=== PATIENT | male | born 1945 | race Caucasian/White ===

== ENCOUNTER 2020-04-23 15:44 | Outpatient (CLI) | payer MEDICARE, OTHER | END 2020-04-23 23:59 | disposition home or self-care (01) | LOC: RAD 15:44 | PROVIDERS: ATTEND Internal Medicine Gastroenterology | DX: R13.12 Dysphagia, oropharyngeal phase (principal); R47.1 Dysarthria and anarthria; K21.9 Gastro-esophageal reflux disease without esophagitis; Z85.89 Personal history of malignant neoplasm of other organs and systems | CPT/HCPCS: 74230 ==

== ENCOUNTER 2021-04-15 06:23 | Day surgery (SDC) | payer MEDICARE, OTHER ==
[2021-04-13 11:08] LABS: CLARITY,URINE CLEAR (Clear); COLOR,URINE YELLOW (Yellow); GLUCOSE, URINE NEGATIVE (Neg); KETONES,URINE NEGATIVE (Neg); LEUKOCYTE ESTERASE ,URINE NEGATIVE (Neg); NITRITES, URINE NEGATIVE (Neg); OCCULT BLOOD,URINE NEGATIVE (Neg); PH,URINE 6.5 (4.8-8.0); PROTEIN,URINE NEGATIVE (Neg); UROBILINOGEN,URINE 0.2 E.U/dL (0.2-1.0)
[2021-04-13 11:13] LABS: ALBUMIN 3.5 G/DL (3.4-5.0); ALBUMIN/GLOBULIN RATIO 0.8 (1.1-1.5); ALKALINE PHOSPHATASE 107 IU/L (46-116); BLOOD UREA NITROGEN 27 MG/DL (7-18); BUN/CREATININE RATIO 20.6 (5.4-32.0); CALCIUM 9.4 MG/DL (8.5-10.1); CHLORIDE 104 MMOL/L (99-107); CREATININE 1.31 MG/DL (0.60-1.10); PRE OP ALT 25 U/L (30-65); PRE OP ANION GAP 4 (8-16); PRE OP AST 17 U/L (10-37); PRE OP BILIRUB, TOTAL 1.3 MG/DL (0.0-1.0); PRE OP GLUCOSE 114 MG/DL (70-104); PRE OP POTASSIUM 4.2 MMOL/L (3.4-5.1); PRE OP SODIUM 141 MMOL/L (135-145); TOTAL CARBON DIOXIDE 32.6 MMOL/L (24-32); TOTAL PROTEIN 7.7 G/DL (6.4-8.2); eGFR 53 ML/MIN
[2021-04-13 11:23] LABS: UA COLLECTION TYPE CLN CATCH MIDSTREAM
[2021-04-13 11:49] LABS: BASOPHILS # (AUTO) 0.1 X10'3 (0-0.2); BASOPHILS % (AUTO) 1.2 % (0-1); EOSINOPHILS # (AUTO) 0.2 X10'3 (0-0.9); EOSINOPHILS % (AUTO) 2.8 % (0-6); LYMPHOCYTES # (AUTO) 0.9 X10'3 (1.1-4.8); LYMPHOCYTES % (AUTO) 14.6 % (21-51); MEAN CORPUSCULAR HEMOGLOBIN 28.9 PG (27.0-31.0); MEAN CORPUSCULAR HGB CONC 33.6 g/dL (33.0-36.5); MEAN CORPUSCULAR VOLUME 86.2 FL (78-98); MEAN PLATELET VOLUME 8.8 FL (7.4-10.4); MONOCYTES # (AUTO) 0.8 X10'3 (0-0.9); MONOCYTES % (AUTO) 13.6 % (2-12); NEUTROPHILS # (AUTO) 4.1 X10'3 (1.8-7.7); NEUTROPHILS % (AUTO) 67.8 % (42-75); PRE OP HEMATOCRIT 48.7 % (42.0-52.0); PRE OP HEMOGLOBIN 16.3 g/dL (14.0-17.9); PRE OP PLATELET COUNT 207 X10'3 (140-440); RED BLOOD COUNT 5.65 X10'6 (4.70-6.10); RED CELL DISTRIBUTION WIDTH 16.2 % (11.5-14.5)
[2021-04-15] VITALS (20 sets, daily range): BP systolic 118–159; BP diastolic 73–108
[~2021-04-15] VITALS: Ht 185.4 cm; Wt 72.6 kg
[~2021-04-15 06:23] MED LIST: DOCUMENT DATE & TIME OF BETA-BLOCKER PO ONE; METO-395 PO; clindamycin-Cleocin 900mg/D5W 50 ML IV ONE; famotidine 20mg tablet PO ONE; ringers solution, lacted 1,000 ML IV SCH
[2021-04-15] MEDS ORDERED: BUPIVAcaine/PF 2.5 mg/ml (0.25%) 30ml vial ONE (06:52)
[2021-04-15] MEDS ORDERED: glycopyrrolate 0.2mg/ml inj ONE (08:51)
[2021-04-15] MEDS ORDERED: sevoflurane 250ml liquid IH ONE (08:51)
[2021-04-15] MEDS ORDERED: fentaNYL/PF 50MCG/1 ML 2ML syringe ONE (08:52)
[2021-04-15] MEDS ORDERED: midazolam 1 mg/ML 2ml injection ONE (08:52)
[2021-04-15] MEDS ORDERED: labetalol 20mg/4ml (5mg/ml) syringe IV PRN (09:00)
[2021-04-15] MEDS ORDERED: morphine 2 MG/ML inj. syringe IV PRN (09:00)
[2021-04-15] MEDS ORDERED: proCHLORperazine 10 MG/2 ml inj IV PRN (09:00)
[2021-04-15] MEDS ORDERED: morphine 4 MG/ML inj SYRINge IV PRN (09:00)
[2021-04-15] MEDS ORDERED: ringers solution, lacted 1,000 ML IV SCH (09:00)
[2021-04-15] MEDS ORDERED: meperidine/PF 25mg/ml syringe IV PRN ×3 (09:00)
[2021-04-15] MEDS ORDERED: ondansetron/PF 4mg/2ml inj IV PRN (09:00)
[2021-04-15] MEDS ORDERED: acetaminophen 1,000mg/100ml IV 100 ML IV PRN (09:00)
[2021-04-15] MEDS ORDERED: hydrALAZINE 20mg/ml inj. IV PRN (09:00)
[2021-04-15] MEDS ORDERED: ePHEDrine 50MG/ML INJ. ONE (09:23)
[2021-04-15] MEDS ORDERED: propofol inj 20 ML IV ONE (09:23)
[2021-04-15] MEDS ORDERED: dexamethasone sod phosphate 4mg/ml inj. ONE (09:23)
[2021-04-15] MEDS ORDERED: 0.9 % SODIUM CHLORIDE 10 ML VIAL ONE (09:23)
[2021-04-15] MEDS ORDERED: ondansetron/PF 4mg/2ml inj ONE (09:23)
[2021-04-15] MEDS ORDERED: LIDOcaine 2% (20mg/ml) 5ml vial ONE (09:23)
[2021-04-15] MEDS ORDERED: rocuronium 10mg/ml inj IV ONE (09:23)
[2021-04-15] MEDS ORDERED: metoprolol tartrate 1mg/ml inj IV ONE (10:40)
[2021-04-15] MEDS ORDERED: neostigmine methylsulfate 1 MG/ML 10ml vial ONE (10:40)
--- NOTE | 2021-04-15 10:52 | NUR ---
Received from OR via , accompanied by Anesthesiologist DR BISHOP and report given by Anesthesiolgist. PT PRESENTS WITH 20G RIGHT HAND, ABD DRESSING AMISH FAUSTINS. Addendum: 04/15/21 at 1056 by Nehal Epperson RN, RN Amended: Links added.
--- NOTE | 2021-04-15 13:30 | NUR ---
PT BLADDER SCAN SHOWS 52MLS IN BLADDER. Addendum: 04/15/21 at 1444 by Nehal Epperson RN RN Amended: Links added.
--- NOTE | 2021-04-15 14:44 | NUR ---
PT URINATED 200 MLS IN URINAL. PT BLADDER SCANNED WITH 139 MLS IN BLADDER. Addendum: 04/15/21 at 1445 by Nehal Epperson RN, RN Amended: Links added.
--- NOTE | 2021-04-15 14:53 | NUR ---
PT URINATED 200 MLS INTO URINAL. Addendum: 04/15/21 at 1453 by Nehal Epperson RN RN Amended: Links added.
--- NOTE | 2021-04-15 15:02 | NUR ---
PT BLADDER SCANNED WITH 21 MLS IN BLADDER. Addendum: 04/15/21 at 1504 by Nehal Epperson RN RN Amended: Links added.
--- NOTE | 2021-04-15 15:12 | NUR ---
ALL DISCHARGE CRITERIA HAS BEEN MET. VSS, PAIN AT A TOLERABLE LEVEL, VOIDING AND ABLE TO SAFELY AMBULATE AND TRANSFER SELF. IV TAKEN OUT WITHOUT ANY COMPLICATIONS. ALL DISCHARGE INSTRUCTIONS COVERED WITH PATIENT AND ALL QUESTIONS ANSWERED. PATIENT TAKEN OUT VIA WHEELCHAIR TO PERSONAL VEHICLE WHERE FAMILY/FRIEND DROVE PATIENT HOME. Addendum: 04/15/21 at 1611 by Nehal Epperson RN, RN Amended: Links added.
== END 2021-04-15 15:12 | disposition home or self-care (01) ==
LOC: PAS 06:23
PROVIDERS: ATTEND Surgery
DX: K40.90 Unilateral inguinal hernia, without obstruction or gangrene, not specified as recurrent (principal); I48.91 Unspecified atrial fibrillation; Z20.822 Contact with and (suspected) exposure to COVID-19; Z88.0 Allergy status to penicillin; F17.290 Nicotine dependence, other tobacco product, uncomplicated; Z72.89 Other problems related to lifestyle; Z98.890 Other specified postprocedural states; Z85.89 Personal history of malignant neoplasm of other organs and systems; Z79.899 Other long term (current) drug therapy; Z83.3 Family history of diabetes mellitus
CPT/HCPCS: 36415; 49650; 80053; 81003; 82948; 85025; 87635; C1781; C9803; J1100; J2250; J2405; J2704; J2710; J3010; J3490; J7030; J7120; Z7506; Z7508; Z7512; A4215; A4618

== ENCOUNTER 2023-07-29 14:46 | Outpatient (CLI) | payer MEDICARE, OTHER ==
[~2023-07-29 14:46] MED LIST changes: -DOCUMENT DATE & TIME OF BETA-BLOCKER PO ONE; -clindamycin-Cleocin 900mg/D5W 50 ML IV ONE; -famotidine 20mg tablet PO ONE; -ringers solution, lacted 1,000 ML IV SCH
== END 2023-07-29 23:59 | disposition home or self-care (01) ==
LOC: RAD 14:46
PROVIDERS: ATTEND Otolaryngology
DX: R13.14 Dysphagia, pharyngoesophageal phase (principal); Z85.89 Personal history of malignant neoplasm of other organs and systems
CPT/HCPCS: 74230

== ENCOUNTER 2024-08-13 15:32 | Inpatient (IN) | payer MEDICARE, OTHER ==
[~2024-08-13] VITALS: Ht 182.9 cm; Wt 72.9 kg
--- NOTE | 2024-08-13 15:42 | Physician Documentation ---
History of Present Illness Stated Complaint: SIDE PAIN HPI Presents to the ED with a complaint of right-sided flank pain for three days. States he also had a fever recently. States he also has a history of throat cancer. Denies any urinary difficulty but does report that it is difficulty to get a good position that isnt painful. Denies any history of kidney stones. Patient also denies any chest pain shortness of breath nausea vomiting Day of Onset: August 13, 2024 Medication Reconciliation Allergies: Coded Allergies: Penicillins (Verified Adverse Reaction, Unknown, RASH, 08/13/24) Scheduled Metoprolol Tartrate (Metoprolol Tartrate), 1 TAB PO BID, (Reported) Tamsulosin Hcl* (Flomax*), 0.4 MG PO DAILY, (Reported) Discontinued Medications Metoprolol Succinate (Metoprolol Succinate), 1 TAB PO AM, (Reported) Discontinued Reason: patient no longer taking Metoprolol Succinate (Metoprolol Succinate), 2 TAB PO HS, (Reported) Discontinued Reason: patient no longer taking Review of Systems All Other Systems at this time: Reviewed and Negative ROS As stated above in the HPI, otherwise all systems are reviewed and negative. Physical Exam Physical Exam General: Alert, no apparent distress. Cardiovascular: Regular rate and rhythm, no murmurs. Gastrointestinal: Soft, nontender, positive CVA tenderness on the right side Neurologic: Oriented x4. Psychiatric: Normal mood and affect. Skin: Normal color, warm and dry. No edema, no ecchymosis. Medical Decision Making Findings Interestingly, I was initially suspicious suspicious for a right-sided kidney stone that may or may not have been obstructive. Patient's urinalysis also indicated this via red blood cells evident in his urine. Ordered the CT abdomen and pelvis however there was no evidence of the kidney stone in his imaging. However his laboratory values and indicated he has elevated pro BNP elevated troponin indicating that this is likely demand ischemia. Started him on heparin and gave hydralazine and requested admission to the hospital Differential Dx:Considerations: Include: AAA, Angina/IL, Aortic dissection, Appendicitis, Bowel obstruction, Cholangitis, Cholelithasis, Constipation, Diverticular disease, Esophageal rupture, Esophagitis, Gastritis/PUD, Gastroenteritis, GI hemorrhage, Hernia, Hepatitis, Inflammatory BD, Ischemic bowel, Pancreatitis, Porphyria, Testicular torsion, Trauma, intraabdominal, Urinary obstruction, Urinary tract infection, Urolithiasis, Other Departure Disposition: ADMITTED INPATIENT Impression: Primary Impression: Non-ST elevation (NSTEMI) myocardial infarction Additional Impression: CHF (congestive heart failure) Condition: Critical Referrals: NO PRIMARY CARE PROVIDER (PCP) Signature Scribe Signature: b Attestation: The note accurately reflects work and decisions made by me.Rivera Epperson NP 08/13/24 22:55 RIVERA ESTRADA NP August 13, 2024 15:42
[2024-08-13 16:02] LABS: BILIRUBIN,URINE NEGATIVE (Neg); CLARITY,URINE CLEAR (Clear); COLOR,URINE YELLOW (Yellow); GLUCOSE, URINE NEGATIVE (Neg); KETONES,URINE NEGATIVE (Neg); LEUKOCYTE ESTERASE ,URINE NEGATIVE (Neg); NITRITES, URINE NEGATIVE (Neg); OCCULT BLOOD,URINE MODERATE (Neg); PROTEIN,URINE >=300 mg/dl (Neg)
[2024-08-13 16:13] LABS: UA COLLECTION TYPE VOIDED
[2024-08-13 16:15] LABS: BACTERIA,URINE FEW /HPF (Neg); SQUAMOUS EPITHELIAL CELL,UR FEW /LPF (FEW)
[2024-08-13 16:16] LABS: FINE GRANULAR CAST 0-3 /LPF (NEGATIVE); URIC ACID CRYSTALS FEW /HPF (NEGATIVE)
[2024-08-13 16:27] LABS: BASOPHILS # (AUTO) 0.1 X10'3 (0-0.2); BASOPHILS % (AUTO) 0.6 % (0-1); EOSINOPHILS % (AUTO) 0.2 % (0-6); HEMATOCRIT 49.2 % (42.0-52.0); HEMOGLOBIN 16.3 g/dl (14.0-17.9); LYMPHOCYTES # (AUTO) 0.8 X10'3 (1.1-4.8); LYMPHOCYTES % (AUTO) 7.7 % (21-51); MEAN CORPUSCULAR HEMOGLOBIN 27.8 PG (27.0-31.0); MEAN CORPUSCULAR HGB CONC 33.1 g/dL (33.0-36.5); MEAN CORPUSCULAR VOLUME 84.1 FL (78-98); MEAN PLATELET VOLUME 9.3 FL (7.4-10.4); MONOCYTES # (AUTO) 1.2 X10'3 (0-0.9); MONOCYTES % (AUTO) 12.3 % (2-12); NEUTROPHILS # (AUTO) 7.8 X10'3 (1.8-7.7); NEUTROPHILS % (AUTO) 79.2 % (42-75); PLATELET COUNT 193 X10'3 (140-440); RED BLOOD COUNT 5.85 X10'6 (4.70-6.10); RED CELL DISTRIBUTION WIDTH 15.8 % (11.5-14.5); WHITE BLOOD COUNT 9.8 X10'3 (4.5-11.0)
--- NOTE | 2024-08-13 16:29 | RADIOLOGY REPORT ---
CHEST RADIOGRAPH Indication: CP Technique: Single frontal view of the chest was obtained COMPARISON: None FINDINGS: Lines and Tubes: None Lungs: Clear Pleura: No effusion. No pneumothorax. Cardiomediastinal contours: Mild cardiomegaly Bones: Unremarkable IMPRESSION: 1. No infiltrates. Mild bilateral apical pleural thickening
[2024-08-13 16:44] LABS: ALANINE AMINOTRANSFERASE 24 U/L (12-78); ALBUMIN 3.5 G/DL (3.4-5.0); ALBUMIN/GLOBULIN RATIO 0.7 (1.1-1.5); ALKALINE PHOSPHATASE 205 IU/L (46-116); ANION GAP 9 (8-16); ASPARTATE AMINO TRANSFERASE 38 U/L (10-37); BILIRUBIN,TOTAL 2.4 MG/DL (0.1-1.0); BLOOD UREA NITROGEN 29 MG/DL (7-18); BUN/CREATININE RATIO 11.7 (10.0-20.0); CALCIUM 9.6 MG/DL (8.5-10.1); CHLORIDE 102 MMOL/L (99-107); CREATININE 2.48 MG/DL (0.60-1.10); GLUCOSE 125 MG/DL (70-104); SODIUM 141 MMOL/L (135-145); TOTAL CARBON DIOXIDE 30.4 MMOL/L (24-32); TOTAL PROTEIN 8.5 G/DL (6.4-8.2); eCRCL 24 ML/MIN; eGFR 25 ML/MIN
[2024-08-13 16:50] LABS: LIPASE 50 U/L (16-77); PRO BRAIN NATRIURETIC PEPTIDE 9888 PG/ML (0-450)
[2024-08-13] MEDS ORDERED: heparin 10,000 units/1 ML INJ IV ONE (17:00)
--- NOTE | 2024-08-13 17:10 | ELECTROCARDIOGRAPH REPORT ---
[facility] Test Date: 2024-08-13 Test Time: 16:09:28 Pat Name: BRANDON PEREZ Department: EMERGENCY ROOM Room: [place] [address] Gender: M Technical Assistant: ANA : 1945 Requested By: MARY ANDERSEN Order Number: [id number] Reading MD: Dr. Blas Ponce Measurements Intervals [place] Rate: 128 P: 0 IN: 0 QRS: 97 QRSD: 131 T: -49 QT: 325 QTc: 475 Interpretive Statements Atrial fibrillation Ventricular premature complex RBBB and LPFB ST depression, consider ischemia, diffuse lds Electronically Signed On 08-18-2024 13:44:[address] Blas Ponce Please click the below link to view image of tracing.
[2024-08-13 17:22] LABS: APTT 28 SECONDS (22-32); INR 1.1 INR
[2024-08-13] MEDS ORDERED: magnesium hydroxide 30ml (MOM) UD suspension PO PRN (17:25)
[2024-08-13] MEDS ORDERED: acetaminophen 325mg tablet PO PRN (17:25)
[2024-08-13] MEDS ORDERED: magnesium sulf-water 2g/50mL 50 ML IV PRN (17:25)
[2024-08-13] MEDS ORDERED: mag hydrox/Alum hydrox/simeth 30ml oral suspension PO PRN (17:25)
[2024-08-13] MEDS ORDERED: magnesium sulf-water 4G/100mL 100 ML IV PRN (17:25)
[2024-08-13] MEDS ORDERED: potassium Cl 20 mEq SR tablet PO PRN ×2 (17:25)
[2024-08-13] MEDS ORDERED: magnesium Cl slow-release 64mg tablet PO PRN (17:25)
[2024-08-13] MEDS ORDERED: HYDROcodone/acetaminophen 5mg/325mg tablet PO PRN (17:25)
[2024-08-13] MEDS: potassium Cl 20mEq in NS 1,000 ML IV SCH (17:25)
[2024-08-13] MEDS ORDERED: potassium Cl 40MEQ/1/2NS 520ml 520 ML IV PRN (17:25)
[2024-08-13] MEDS: heparin 10,000 units/1 ML INJ IV ONE (17:27)
[2024-08-13] MEDS: heparin 25,000 UNIT/250ml bag 250 ML IV PRN (17:33)
[2024-08-13] MEDS: MESSAGE TO NURSING IV ONE (17:38)
[2024-08-13] MEDS: atorvastatin 20mg tablet PO SCH (17:40)
[2024-08-13] MEDS: aspirin 325mg tablet PO ONE (17:40)
--- NOTE | 2024-08-13 17:42 | RADIOLOGY REPORT ---
EXAM: CT Abdomen and Pelvis Without Intravenous Contrast CLINICAL INDICATION: kidney stone TECHNIQUE: Axial computed tomography images of the abdomen and pelvis without intravenous contrast. This CT exam was performed using one or more of the following dose reduction techniques: automated exposure control, adjustment of the mA and/or kV according to patient size, and/or use of iterative r econstruction technique. CONTRAST: COMPARISON: None FINDINGS: LUNG BASES: Unremarkable. No mass. No consolidation. ABDOMEN: LIVER: Fatty infiltration of the liver. GALLBLADDER AND BILE DUCTS: Unremarkable. No calcified stones. No ductal dilation. PANCREAS: Unremarkable. No ductal dilation. SPLEEN: Unremarkable. No splenomegaly. ADRENALS: Unremarkable. No mass. KIDNEYS AND URETERS: Unremarkable. No obstructing stones. No hydronephrosis. STOMACH AND BOWEL: Fecal retention in the colon consistent with constipation. Colonic diverticulos is without acute diverticulitis. No obstruction. PELVIS: APPENDIX: No findings to suggest acute appendicitis. BLADDER: Portable right posterior urinary bladder diverticulum measuring up to 2.1 cm. No stones. REPRODUCTIVE: The prostate gland measures 4.3 cm in maximum dimension. ABDOMEN and PELVIS: INTRAPERITONEAL SPACE: Unremarkable. No free air. No significant fluid collection. BONES/JOINTS: No acute fracture. No dislocation. SOFT TISSUES: Umbilical hernia containing fat. Left inguinal hernia. VASCULATURE: Scattered calcified atherosclerotic disease of aorta. No abdominal aortic aneurysm. LYMPH NODES: Unremarkable. No enlarged lymph nodes. OTHER FINDINGS: . Normal-appearing. . . IMPRESSION: 1. Umbilical hernia containing fat. 2. Fecal retention in the colon consistent with constipation. 3. Left inguinal hernia. 4. Colonic diverticulosis without acute diverticulitis.
[2024-08-13] MEDS: hydrALAZINE 20mg/ml inj. IV ONE (17:44)
[2024-08-13] MEDS ORDERED: TAMS-55 PO (17:48)
[2024-08-13] MEDS ORDERED: METO50TA16 PO (17:48)
--- NOTE | 2024-08-13 18:18 | HISTORY AND PHYSICAL ---
History & Physical Providers to ~ History of Present Illness Reason for Admit\Complaint: Left flank pain History of Present Illness History of present illness patient is a pleasant 78-year-old gentleman with a longstanding history of AFib. He started developing right flank pain that began around Tuesday around 2:00 p.m. it is radiating to his right mid abdomen towards his penis. He denies any chest pain shortness of breath PND orthopnea syncope or near-syncope. He says he has a longstanding history of AFib but it is normally controlled with the medications he is on. He denies any other associated symptoms. Allergies: Coded Allergies: Penicillins (Verified Adverse Reaction, Unknown, RASH, 08/13/24) Home Medications Home Medications Active Reported Flomax* (Tamsulosin HCl) 0.4 Mg Cap.sr.24h 0.4 Mg PO DAILY Metoprolol Tartrate 50 Mg Tablet 1 Tab PO BID Past Medical History Past Medical History Past medical history significant for throat cancer that was diagnosed 25 years ago status post surgery and radiation. AFib. Past surgical history has a remote tonsillectomy or hernia repair throat surgery Allergies are to penicillins Social history used to be a smoker but quit 25 years ago when he was diagnosed with throat cancer he also quit drinking many years ago is lives alone Family history his both siblings have been diseased secondary to cancer brother had prostate and lung cancer and sister had thyroid and stomach cancer but prior to that nobody in the family had any cancers Review of systems is negative for all 10 systems reviewed except for history of present illness Exam Vitals: Vital Signs Date Time Temp Pulse Resp B/P (MAP) Pulse Ox O2 Delivery O2 Flow Rate FiO2 08/13/24 18:06 98.0 145 19 163/93 (116) 99 0 General: Patient is alert and oriented x3 no acute distress lying down comfortably speaking in full sentences vital signs show an elevated heart rate of 160s and blood pressures of systolics of initially 200s him now come down to 165 HEENT normocephalic nontraumatic head PERRLA. EOMI. Thin cachectic gentleman in no acute distress CVS first and second heart sounds are irregularly irregular Respiratory system is clear to auscultate bilaterally no rales rhonchi crackles or wheezing Abdomen is soft bowel sounds are positive there is plus two tenderness in left flank and left mid quadrant no rebound no rigidity no voluntary guarding no masses appreciated no fluid thrill it is scaphoid Extremities no clubbing cyanosis or edema Neurological exam no focal deficits Rectal deferred Skin is intact and warm Diagnostic Data Last Recorded Lab Results: 08/13/24 1600 08/13/24 1600 Diagnostic Data: Laboratory Tests Test 08/13/24 16:27 Prothrombin Time 11.0 SECONDS (9.0-12.0) INR International Normalized Ratio 1.1 INR Activated Partial Thromboplast Time 28 SECONDS (22-32) Coagulation Comments Additional Plan Assessment and plan -OR type 2 secondary to increased demand Patient is started on IV heparin I spoke to college associate who agrees to see the patient in a.m. Dr. MANN Patient also started on aspirin Lipitor morphine metoprolol and oxygen -left-sided nephrolithiasis we will get a consult with Dr. Sullivan Start the patient on Flomax IV fluids Empirically on IV Cipro -history of throat cancer Status post surgery and radiation -acute renal failure monitor BUN and creatinine IV hydration started -DVT prophylaxis with the IV heparin Date of Service: August 13, 2024 Billing Provider: KYLAH KIM MD Common Visit Codes: 03665-[id number] INP/OBS CARE (HIGH) KYLAH KIM MD August 13, 2024 18:18
[2024-08-13] MEDS ORDERED: mineral oil 133ml enema RC PRN (18:25)
[2024-08-13] MEDS: lactulose 20gm/30ml cup PO ONE (18:25)
[2024-08-13] MEDS: metoprolol tartrate 1mg/ml inj IV ONE (18:34)
[2024-08-13 18:37] LABS: HEMOGLOBIN A1C 5.6 % (4.5-6.2)
[2024-08-13] MEDS: morphine 2 MG/ML inj. syringe IV PRN (18:52)
[2024-08-13] MEDS: docusate sod 100mg capsule PO SCH (20:00)
[2024-08-13] MEDS: metoprolol tartrate 50mg tablet PO SCH (20:00)
[2024-08-13] MEDS: K and/or MAG REPLACEMENT MC SCH (20:00)
[2024-08-13] MEDS ORDERED: docusate sod 100mg capsule PO SCH (20:00)
[2024-08-13] MEDS: tamsulosin 0.4mg capsule PO SCH (21:00)
[2024-08-13] MEDS: diltiazem 5mg/ml 5ml inj. IV ONE (21:06)
[2024-08-13] MEDS: diltiazem-NS 100mg/100ml 100 ML IV SCH (21:07)
[2024-08-13] MEDS: ciprofloxacin/D5W 200mg/100mL 100 ML IV SCH (22:03)
[2024-08-13 22:23] VITALS: BP 154/90; PULSE 112; RESP 18; O2SAT 95
[2024-08-13 22:45] VITALS: BP 139/90; PULSE 126; RESP 21
[2024-08-13 23:00] VITALS: BP 140/99; PULSE 113; RESP 19
[2024-08-13 23:15] VITALS: BP 148/89; PULSE 112; RESP 15
[2024-08-13 23:30] VITALS: BP 153/82; PULSE 109; RESP 18
[2024-08-14] VITALS (22 sets, daily range): BP systolic 108–160; BP diastolic 63–104; PULSE 84–167; RESP 15–29; TEMP 97.3–98.9; O2SAT 90–97
[2024-08-14] MEDS: MESSAGE TO NURSING IV ONE ×4 (00:54→22:45)
[2024-08-14] MEDS: hydrALAZINE 20mg/ml inj. IV PRN (02:40)
[2024-08-14] MEDS: ondansetron/PF 4mg/2ml inj IV PRN (04:46)
[2024-08-14] MEDS: cloNIDine 0.1 mg tablet PO PRN (05:08)
[2024-08-14 07:05] LABS: BASOPHILS % (AUTO) 0.2 % (0-1); EOSINOPHILS % (AUTO) 0 % (0-6); HEMATOCRIT 44.9 % (42.0-52.0); HEMOGLOBIN 15.1 g/dl (14.0-17.9); LYMPHOCYTES # (AUTO) 0.4 X10'3 (1.1-4.8); MEAN CORPUSCULAR HEMOGLOBIN 28.1 PG (27.0-31.0); MEAN CORPUSCULAR HGB CONC 33.7 g/dL (33.0-36.5); MEAN CORPUSCULAR VOLUME 83.4 FL (78-98); MEAN PLATELET VOLUME 8.9 FL (7.4-10.4); MONOCYTES # (AUTO) 1.4 X10'3 (0-0.9); MONOCYTES % (AUTO) 11.5 % (2-12); NEUTROPHILS # (AUTO) 10.5 X10'3 (1.8-7.7); NEUTROPHILS % (AUTO) 85.3 % (42-75); PLATELET COUNT 170 X10'3 (140-440); RED BLOOD COUNT 5.39 X10'6 (4.70-6.10); RED CELL DISTRIBUTION WIDTH 15.8 % (11.5-14.5); WHITE BLOOD COUNT 12.3 X10'3 (4.5-11.0)
[2024-08-14 07:28] LABS: ALANINE AMINOTRANSFERASE 18 U/L (12-78); ALBUMIN 2.9 G/DL (3.4-5.0); ALBUMIN/GLOBULIN RATIO 0.7 (1.1-1.5); ALKALINE PHOSPHATASE 166 IU/L (46-116); ANION GAP 11 (8-16); ASPARTATE AMINO TRANSFERASE 27 U/L (10-37); BILIRUBIN,TOTAL 2.2 MG/DL (0.1-1.0); BLOOD UREA NITROGEN 28 MG/DL (7-18); BUN/CREATININE RATIO 12.4 (10.0-20.0); CALCIUM 9.2 MG/DL (8.5-10.1); CHLORIDE 104 MMOL/L (99-107); CHOL/HDL RATIO 2.5 (0.00-4.99); CHOLESTEROL 151 MG/DL (0-200); CREATININE 2.26 MG/DL (0.60-1.10); GLUCOSE 141 MG/DL (70-104); HDL CHOLESTEROL 60 MG/DL (35-60); LDL CHOLESTEROL 85 MG/DL (50-100); MAGNESIUM 2.2 MG/DL (1.5-2.4); POTASSIUM 4.2 MMOL/L (3.5-5.1); SODIUM 140 MMOL/L (135-145); TOTAL CARBON DIOXIDE 25.1 MMOL/L (24-32); TOTAL PROTEIN 7.3 G/DL (6.4-8.2); TRIGLYCERIDES 57 MG/DL (20-135); eCRCL 27 ML/MIN; eGFR 28 ML/MIN
[2024-08-14] MEDS ORDERED: tamsulosin 0.4mg capsule PO SCH (08:00)
--- NOTE | 2024-08-14 10:37 | CONSULTATION REPORT ---
History of Present Illness Providers to CC ~ Reason for Admit\Admit Dx: Left flank pain Refering MD: [facility] History of Present Illness This is a 78-year-old male with past medical history significant for throat cancer status post resection and radiation as well as atrial fibrillation not on oral anticoagulation. Presented secondary to left-sided lengthening radiating to the groin. He was diagnosed with a kidney stone. Troponins were drawn for some reason and they were found to be elevated and therefore cardiology consultation was requested with the on-call drill press hand, Dr. Yoo. On presentation patient was in AFib with rapid ventricular response and significantly hypertensive. He was started on a diltiazem drip. Heart rate is now controlled. Chest pain or pressure. Has intermittent dyspnea on exertion that has been going on for some time. No exacerbation in symptoms. No dizziness, lightheadedness or syncope. Allergies: Coded Allergies: Penicillins (Verified Adverse Reaction, Unknown, RASH, 08/13/24) Home Medications Home Medications Active Reported Flomax* (Tamsulosin HCl) 0.4 Mg Cap.sr.24h 0.4 Mg PO DAILY Metoprolol Tartrate 50 Mg Tablet 1 Tab PO BID Past Medical History Medical History Comment AFib Throat cancer Past Surgical History Surgical History Comment Surgical resection of throat cancer Past Social History Social History Comment Patient has a history of smoking but quit many years ago. Denies alcohol. No recreational drugs. Physical Exam Last Vital Signs Recorded: RN Vital Signs have been reviewed: Yes, Temperature: 97.3, Source: Oral, Heart Rate: 99, Respiratory Rate: 21, BP: 116/63, Pulse Oximetry: 93, Weight: 72.900 Physical Exam General: Awake, alert, oriented. No apparent distress Neck: Supple. Normal range of motion. No JVD Respiratory: Lungs are clear to auscultation bilaterally. No respiratory distress. Chest: Normal shape and size. No accessory muscle use. Cardiovascular: Irregularly irregular. Variable S1-S2. No murmur, gallop, rub. Gastrointestinal: Abdomen is soft. Nontender to palpation. Bowel sounds present. Extremities: No lower extremity edema, cyanosis or clubbing. Neurologic: Alert and oriented x4. Nonfocal Psychiatric: Normal mood and affect. Skin: Normal color. Warm and dry. Review of Systems All Other Systems at this time: Reviewed and Negative ROS Patient complains of flank pain as noted in HPI. Minimal dyspnea on exertion with NYHA class two symptoms intermittently. Otherwise, review of systems negative except specifically documented in HPI. Results EKG EKG Atrial fibrillation with rapid ventricular response. Right bundle branch block and left anterior fascicular block. PVCs noted. Diagram Lab Result Diagram: 08/14/2462808/14/24628 Assessment/Plan Additional Plan This is an 78-year-old male who presented secondary to flank pain. The following is his problem list: NSTEMI Likely [place] type 2 secondary to AFib with RVR and hypertension No current chest pain or pressure --recommend echocardiogram --continue heparin drip for now. --Unable to tolerate anticoagulation secondary to his history of throat cancer. He will continue aspirin 81 mg daily. --Continue home metoprolol 50 mg b.i.d. --lipids were checked. LDL 85. Recommend high-intensity statin. Atrial fibrillation with rapid ventricular response Heart rate now controlled Wean off diltiazem drip. Up titrate metoprolol as needed for rate control Hypertension Not on antihypertensives as an outpatient. --hypertension management per hospitalist Nephrolithiasis --Management per hospitalist. --if surgical intervention is needed we will be moderate cardiovascular risk for surgery. Acute kidney injury --Receiving IV hydration per hospitalist Supervising MD Supervising Physician: STACY Willson NP August 14, 2024 10:37
--- NOTE | 2024-08-14 14:27 | PROGRESS NOTE- Residence ---
Progress Note - Resident Providers to CC Resident Creating Document: SHAQUILLE MARTINEZ RES ~ Antibiotic Timeout Antibiotic Ordered?: Yes Subjective Patient said that he is still having the right flank pain, denies any chest pain pressure discomfort and no EKG changes. Patient is currently on IV heparin, cardiology was consulted yesterday. Patient did not have any bowel movement yet. Objective Vital Signs Date Time Temp Pulse Resp B/P (MAP) Pulse Ox O2 Delivery O2 Flow Rate FiO2 08/14/24 11:38 19 08/14/24 11:37 92 123/79 08/14/24 11:00 98.9 90 Room Air 08/13/24 18:06 0 Result Diagram: 08/14/2462808/14/24628 Vitals were stable at the moment with temp 98.9 F HI 91/minute, RR 21/minute, BP 110/71, pulse oximetry 90% on room air. On exam, General: Well alert, well oriented, not confused, not agitated, not in acute distress, well cooperated during the physical. HEENT: Conjunctive are pink, sclerae clear, no icterus, pupil is equal in both sides, reactive to light, no ear discharge, no pharyngeal erythema or an edema, mouth and lips are moist. Neck: Supple, no JVD, no lymphadenopathy and thyromegaly. Lungs:Equal air entry on both lungs, no additional sounds Heart: S1-S2 regular sinus rhythm and, regular rate, no gallops, no rubs, no murmurs Abdomen: No visible peristalsis, Bowel sounds present on auscultation, soft, slight tenderness at the right flank, and left sided, no guarding, no rigidity, ESTRADA was deferred Extremities: No obvious deformities, no pitting edema bilaterally, capillary refill intact, able to wiggle toes both sides, peripheral pulsations are intact on both sides EXPERIMENTAL PSYCHOLOGIST: No focal neurological deficits, no motor and sensory weakness in all 4 extremities, could move all 4 extremities Musculoskeletal: No joint swelling, deformities, inflammations, and no scoliosis and back tenderness Skin: No active skin lesions and rashes Coagulation Studies Laboratory Tests Test 08/13/24 16:27 08/14/24 13:14 Prothrombin Time 11.0 SECONDS (9.0-12.0) INR International Normalized Ratio 1.1 INR Activated Partial Thromboplast Time 28 SECONDS (22-32) APTT (Heparin Protocol) 62 SECONDS (45-60) H Coagulation Comments Assessment Assessment An 78 years old male with chronic AFib with RVR on non anticoagulation, throat cancer s/p radical surgery and XRT. s/p tonsillectomy or hernia repair surgery, and FHx of cancer in brother with prostate and lung cancer, sister had thyroid and stomach cancer presented with the acute right flank pain radiated downward to his groin and genital area. Plan Plan # T2MI -patient is currently on IV heparin and continue it -possibly secondary from AFib with RVR and a uncontrolled hypertension. -consulted with Dr Yoo cardiology and appreciate it, who recommended for continuing home metoprolol 50 mg b.i.d., continue atorvastatin 40 mg daily with goal of LDL <55, anticoagulation was limited for his throat cancer history. # Constipation -mineral oil prn -continue p.o. lactulose 30 mL b.i.d., p.o. MiraLax 17 g every HS, docusate 100 mg b.i.d. -we will consider soap enema if he wound have any bowel movement after those measures -control the pain with acetaminophen as much as possible to avoid unnecessary constipation from opiates -continue IV ciprofloxacin Day 2 # A fib w/ RVR on no anticoagulation -was given IV diltiazem drip, cardiology recommended for titrating up current metoprolol as needed for rate control -currently maintaining heart rate around 90s # hypertension -blood pressure is currently controlled, around 110/70 -continue IV hydralazine 10 mg PRN -patient is currently on the tamsulosin for his possible diagnosis of kidney stone/BPH # history of throat cancer -s/p radical resection surgery and XRT 25 years ago -currently on liquid diet only for two years now. -started and continue liquid centrum with multivitamins. CODE STATUS: Full code DVT prophylaxis: IV heparin Analgesia/sedation: Acetaminophen, IV morphine as needed Lines/tubes: Peripheral IV GI prophylaxis: None Nutrition: Liquid diet Prognosis: Guarded Disposition: Continue medical management, continue IV heparin as per Cardiology recommendation, GDMT, heart rate control, PT eval and DC plan. Resident attestation: Patient was seen, examined and discussed with attending MD, Dr. Angi MARTINEZ MD Internal Medicine Resident, PGY2 [facility] Date of Service: August 14, 2024 Billing Provider: KYLAH KIM MD, TIN, RES August 14, 2024 14:27
[2024-08-14] MEDS: lactulose 20gm/30ml cup PO SCH (15:51)
[2024-08-14] MEDS: MULTIVIT-MIN/FERROUS GLUCONATE 9 MG/15 ML LIQUID PO SCH (16:10)
--- NOTE | 2024-08-14 18:08 | CARDIOLOGY REPORT ---
APPROVED REPORT EXAM: Comprehensive 2D, Doppler, and color-flow Echocardiogram. Patient Location: [facility] Heart Rate: 101 bpm Rhythm: Atrial Fibrillation Indications CHEST PAIN ELEVATED PRO BNP [id number] ATRIAL FIBRILLATION HS TROPONIN [id number] TRANSPORTATION AID: NONE. PRIOR ECHOCARDIOGRAM: NONE. 2D Dimensions RVDd 5.0 cm IVSd 1.1 (0.7-1.1cm) LVDd 3.7 cm PWd 1.2 (0.7-1.1cm) IVSs 1.4 (0.8-1.2cm) LVDs 2.8 (2.5-4.0cm) PWs 1.6 (0.8-1.2cm) LVOT Diameter 1.99 (1.8-2.4cm) LVEF(%) 49.2 (>50%) FS (%) 24.4 % SV 28.5 ml CO 3.7 L/min M-Mode Dimensions Left Atrium(MM) 4.26 (2.5-4.0cm) Aortic Root 3.43 (2.2-3.7cm) Aortic Cusp Exc 1.51 (1.5-2.0cm) Aortic Valve AoV Peak Cameron. 96.9 cm/s AoV VTI 18.1 cm AO Peak GR. 3.8 mmHg AO Mean GR. 2 mmHg LVOT VTI 12.01 cm LVOT Peak Cameron. 68.2 cm/s VALERIE(VTI)/BSA 2.05 cm2/m2 VALERIE (VTI) 2.05 cm2 Mitral Valve MV E Velocity 92.6 cm/s MV Peak Gr. 4 mmHg MV DECEL TIME 144 ms MV PHT 64 ms MVA (PHT) 3.44 cm2 MV VMax97.7 cm/s Tricuspid Valve TR P. Velocity 308 cm/s RAP ESTIMATE 5 mmHg TR Peak Gr. 38 mmHg RVSP 43 mmHg LEFT VENTRICLE Normal LV size and mildly reduced function. Mild concentric hypertrophy. LVEF is 45-50%. RIGHT VENTRICLE The right ventricle is severly di;lated with mildly reduced function. There is normal right ventricul ar wall thickness. RVSP 43 mmHg. ATRIA Left atrium is moderately dilated. Right atrium is severely dilated. AORTIC VALVE Trileaflet AV appears mildly sclerotic without stenosis. No insufficiency. MITRAL VALVE Mitral valve leaflets are mildly thickened without stenosis. Mild regurgitation. TRICUSPID VALVE The tricuspid valve is normal in structure. Moderate regurgitation. PULMONIC VALVE Pulmonic valve is not well visualized. GREAT VESSELS The aortic root is normal in size. IVC is normal in size and collapses greater than 50% with inspirat ion. PERICARDIUM Normal pericardium. No effusion. Other Information Study Quality: Adequate Conclusion Normal LV size and mildly reduced function. Mild concentric hypertrophy. LVEF is 45-50%. The right ventricle is severly di;lated with mildly reduced function. There is normal right ventricu lar wall thickness. RVSP 43 mmHg. Left atrium is moderately dilated. Right atrium is severely dilated. Trileaflet AV appears mildly sclerotic without stenosis. No insufficiency. Mitral valve leaflets are mildly thickened without stenosis. Mild regurgitation. The tricuspid valve is normal in structure. Moderate regurgitation. Normal pericardium. No effusion.
[2024-08-14] MEDS: lactose-reduced food (Ensure Enlive) - 237ml bottle PO SCH (18:37)
[2024-08-14] MEDS: docusate sodium 100mg/10ml UD cup PO SCH (20:30)
[2024-08-14] MEDS: polyethylene glycol 3350 17gm powd pack PO SCH (21:00)
[2024-08-15] VITALS (13 sets, daily range): BP systolic 92–153; BP diastolic 58–93; PULSE 78–138; RESP 14–31; TEMP 97–98.1; O2SAT 89–94
[2024-08-15 04:14] LABS: BASOPHILS % (AUTO) 0.2 % (0-1); EOSINOPHILS % (AUTO) 0 % (0-6); HEMATOCRIT 47.9 % (42.0-52.0); HEMOGLOBIN 15.9 g/dl (14.0-17.9); LYMPHOCYTES # (AUTO) 0.9 X10'3 (1.1-4.8); LYMPHOCYTES % (AUTO) 4.4 % (21-51); MEAN CORPUSCULAR HGB CONC 33.3 g/dL (33.0-36.5); MEAN CORPUSCULAR VOLUME 84.2 FL (78-98); MEAN PLATELET VOLUME 9.1 FL (7.4-10.4); MONOCYTES # (AUTO) 2.2 X10'3 (0-0.9); MONOCYTES % (AUTO) 11.5 % (2-12); NEUTROPHILS # (AUTO) 16.2 X10'3 (1.8-7.7); NEUTROPHILS % (AUTO) 83.9 % (42-75); PLATELET COUNT 191 X10'3 (140-440); RED BLOOD COUNT 5.69 X10'6 (4.70-6.10); RED CELL DISTRIBUTION WIDTH 16.3 % (11.5-14.5); WHITE BLOOD COUNT 19.3 X10'3 (4.5-11.0)
[2024-08-15 04:28] LABS: ALANINE AMINOTRANSFERASE 25 U/L (12-78); ALBUMIN 3.1 G/DL (3.4-5.0); ALBUMIN/GLOBULIN RATIO 0.6 (1.1-1.5); ALKALINE PHOSPHATASE 169 IU/L (46-116); ANION GAP 10 (8-16); ASPARTATE AMINO TRANSFERASE 28 U/L (10-37); BILIRUBIN,TOTAL 2.9 MG/DL (0.1-1.0); BLOOD UREA NITROGEN 37 MG/DL (7-18); BUN/CREATININE RATIO 13.5 (10.0-20.0); CALCIUM 9.4 MG/DL (8.5-10.1); CHLORIDE 101 MMOL/L (99-107); CREATININE 2.75 MG/DL (0.60-1.10); GLUCOSE 122 MG/DL (70-104); MAGNESIUM 2.4 MG/DL (1.5-2.4); POTASSIUM 3.8 MMOL/L (3.5-5.1); SODIUM 138 MMOL/L (135-145); TOTAL CARBON DIOXIDE 26.9 MMOL/L (24-32); TOTAL PROTEIN 8.3 G/DL (6.4-8.2); eCRCL 22 ML/MIN; eGFR 22 ML/MIN
[2024-08-15] MEDS: diltiazem-NS 100mg/100ml 100 ML IV ONE (04:42)
[2024-08-15] MEDS: heparin 10,000 units/1 ML INJ IV PRN (04:44)
[2024-08-15] MEDS: MESSAGE TO NURSING IV ONE ×2 (04:49→14:00)
[2024-08-15] MEDS ORDERED: polyethylene glycol 3350 17gm powd pack PO PRN (10:05)
[2024-08-15] MEDS: normal saline 1000ml 1,000 ML IV SCH (11:50)
--- NOTE | 2024-08-15 17:00 | PROGRESS NOTE- Residence ---
Progress Note - Resident Providers to CC Resident Creating Document: SHAQUILLE MARTINEZ RES ~ Antibiotic Timeout Antibiotic Ordered?: No Subjective Patient just came back from the nuclear medicine Lexiscan with pending cardiology report. He dose not have any CP at that moment. He has bowel movements, will downgrade the Laxatives for his inclining Cr. Objective Vital Signs Date Time Temp Pulse Resp B/P (MAP) Pulse Ox O2 Delivery O2 Flow Rate FiO2 08/15/24 15:00 97.4 120 18 114/79 (91) 92 Room Air 08/13/24 18:06 0 Result Diagram: 08/15/24 0403 08/15/24402 Vitals were stable at the moment. On exam, General: Well alert, well oriented, not confused, not agitated, not in acute distress, well cooperated during the physical. HEENT: Conjunctive are pink, sclerae clear, no icterus, pupil is equal in both sides, reactive to light, no ear discharge, no pharyngeal erythema or an edema, mouth and lips are moist. Neck: Supple, no JVD, no lymphadenopathy and thyromegaly. 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, no motor and sensory weakness in all 4 extremities, could move all 4 extremities Musculoskeletal: No joint swelling, deformities, inflammations, and no scoliosis and back tenderness Skin: No active skin lesions and rashes Coagulation Studies Laboratory Tests Test 08/13/24 16:27 08/15/24 11:33 Prothrombin Time 11.0 SECONDS (9.0-12.0) INR International Normalized Ratio 1.1 INR Activated Partial Thromboplast Time 28 SECONDS (22-32) APTT (Heparin Protocol) 54 SECONDS (45-60) Coagulation Comments Assessment Assessment An 78 years old male with chronic AFib with RVR on non anticoagulation, throat cancer s/p radical surgery and XRT. s/p tonsillectomy or hernia repair surgery, and FHx of cancer in brother with prostate and lung cancer, sister had thyroid and stomach cancer presented with the acute right flank pain radiated downward to his groin and genital area. Plan Plan # T2MI 08/15/2024: Continue mainly medical management which was recommended by the Cardiology including IV heparin for 48 hours, DAPT, statin, metoprolol. -2D echocardiogram showed mildly reduced function of LV with mild concentric hypertrophy, LVEF 45-50%, severely dilated RV with mildly reduced function, RVSP 43 mm Hg, moderately dilated LA, severely dilated RA, mild MR, TR, normal pericardium and no effusion. -Cardiology is on board 08/14/2024:-patient is currently on IV heparin and continue it -possibly secondary from AFib with RVR and a uncontrolled hypertension. -consulted with Dr Yoo cardiology and appreciate it, who recommended for continuing home metoprolol 50 mg b.i.d., continue atorvastatin 40 mg daily with goal of LDL <55, anticoagulation was limited for his throat cancer history. # Acute abd pain from Constipation 08/15/2024: Patient had bowel movements today, downgraded laxatives because of his in climbing creatinine level. 08/14/2024:-mineral oil prn -continue p.o. lactulose 30 mL b.i.d., p.o. MiraLax 17 g every HS, docusate 100 mg b.i.d. -we will consider soap enema if he wound have any bowel movement after those measures -control the pain with acetaminophen as much as possible to avoid unnecessary constipation from opiates -continue IV ciprofloxacin Day 2 # A fib w/ RVR on no anticoagulation 08/15/2024: Heart rate is not controlled well today, continue metoprolol 100 mg BID for better Afib control not on anticoag because of his throat cancer surgery PMH 08/14/2024:-was given IV diltiazem drip, cardiology recommended for titrating up current metoprolol as needed for rate control -currently maintaining heart rate around 90s # KIARA from renal tubular stasis 08/15/2024:-creatinine is trending up to 2.75 today, downgrading the laxatives usage and optimize the fluid and continue IV normal saline 0.9% 70 ml/ hours. # hypertension -blood pressure is currently controlled, around 110/70 -continue IV hydralazine 10 mg PRN -patient is currently on the tamsulosin for his possible diagnosis of kidney stone/BPH # history of throat cancer -s/p radical resection surgery and XRT 25 years ago -currently on liquid diet only for two years now. -started and continue liquid centrum with multivitamins. CODE STATUS: Full code DVT prophylaxis: IV heparin for 48 hours and switch to SCDs Analgesia/sedation: Acetaminophen, IV morphine as needed Lines/tubes: Peripheral IV GI prophylaxis: None Nutrition: Liquid diet Prognosis: Guarded Disposition: Continue medical management, continue IV heparin as per Cardiology recommendation, GDMT, heart rate control, PT eval and DC plan. Resident MD attestation: Patient was seen, examined and discussed with attending MD, Dr. Beny MARTINEZ MD Internal Medicine Resident, PGY2 [facility] Date of Service: August 15, 2024 Billing Provider: SHAQUILLE MARTINEZ RES Common Visit Codes: [id number] INP/OBS CARE(HIGH) SHAQUILLE MARTINEZ RES August 15, 2024 17:00 BILL BAUM MD August 15, 2024 19:12
[2024-08-15] MEDS: metoprolol tartrate 50mg tablet PO SCH (20:48)
[2024-08-16] VITALS (27 sets, daily range): BP systolic 94–128; BP diastolic 53–82; PULSE 60–124; RESP 12–26; TEMP 97–97.6; O2SAT 95–98
[2024-08-16 08:20] LABS: BASOPHILS % (AUTO) 0.2 % (0-1); EOSINOPHILS % (AUTO) 0 % (0-6); HEMATOCRIT 43.2 % (42.0-52.0); HEMOGLOBIN 14.1 g/dl (14.0-17.9); LYMPHOCYTES # (AUTO) 0.6 X10'3 (1.1-4.8); LYMPHOCYTES % (AUTO) 4.6 % (21-51); MEAN CORPUSCULAR HEMOGLOBIN 27.7 PG (27.0-31.0); MEAN CORPUSCULAR HGB CONC 32.7 g/dL (33.0-36.5); MEAN CORPUSCULAR VOLUME 84.5 FL (78-98); MONOCYTES # (AUTO) 1.7 X10'3 (0-0.9); MONOCYTES % (AUTO) 12.9 % (2-12); NEUTROPHILS # (AUTO) 10.6 X10'3 (1.8-7.7); NEUTROPHILS % (AUTO) 82.3 % (42-75); PLATELET COUNT 163 X10'3 (140-440); RED BLOOD COUNT 5.11 X10'6 (4.70-6.10); RED CELL DISTRIBUTION WIDTH 16.1 % (11.5-14.5); WHITE BLOOD COUNT 12.9 X10'3 (4.5-11.0)
[2024-08-16 08:49] LABS: ALANINE AMINOTRANSFERASE 18 U/L (12-78); ALBUMIN 2.3 G/DL (3.4-5.0); ALBUMIN/GLOBULIN RATIO 0.5 (1.1-1.5); ALKALINE PHOSPHATASE 126 IU/L (46-116); ANION GAP 13 (8-16); ASPARTATE AMINO TRANSFERASE 27 U/L (10-37); BILIRUBIN,TOTAL 1.7 MG/DL (0.1-1.0); BLOOD UREA NITROGEN 48 MG/DL (7-18); BUN/CREATININE RATIO 17.9 (10.0-20.0); CALCIUM 8.2 MG/DL (8.5-10.1); CHLORIDE 103 MMOL/L (99-107); CREATININE 2.68 MG/DL (0.60-1.10); GLUCOSE 87 MG/DL (70-104); MAGNESIUM 2.4 MG/DL (1.5-2.4); POTASSIUM 3.8 MMOL/L (3.5-5.1); SODIUM 138 MMOL/L (135-145); TOTAL CARBON DIOXIDE 22.3 MMOL/L (24-32); TOTAL PROTEIN 6.6 G/DL (6.4-8.2); eCRCL 23 ML/MIN; eGFR 23 ML/MIN
[2024-08-16] MEDS ORDERED: CIPR-202 PO (10:14)
[2024-08-16] MEDS ORDERED: MULT9LIQ7 PO (10:14)
[2024-08-16] MEDS ORDERED: APIX2.5T PO (10:14)
[2024-08-16] MEDS ORDERED: ATOR20TA66 PO (10:14)
--- NOTE | 2024-08-16 11:25 | DISCHARGE SUMMARY-Residence ---
Discharge Summary Providers to CC Resident Creating Document: SHAQUILLE MARTINEZ, RES ~ Discharge Summary Admission Diagnosis: NON - STEMI Hospital Course DATE OF ADMISSION: DATE OF DISCHARGE: Discharge Diagnosis\Comment: # T2MI # Acute abd pain from Constipation - resolved # A fib w/ RVR on Eliquis- renal dose - controlled HR # KIARA from renal tubular stasis- resolved # hypertension # history of throat cancer Operations\Procedures: none Consultants: Cardiology- Dr Yoo Complications: None Condition on DC: Stable New Medications: Apixaban (Eliquis) 2.5 Mg Tablet 2.5 MG PO BID for 30 Days, #60 TAB Atorvastatin Calcium (Atorvastatin Calcium) 20 Mg Tablet 40 MG PO DAILY for 30 Days, #30 TAB Ciprofloxacin HCl (Ciprofloxacin HCl) 500 Mg Tab 1 TAB PO Q12H for 5 Days, #10 TAB Multivits W-Min/Ferrous Gluc (Centrum Multivit-Mineral Liq) 9 Mg Iron/15 Ml Liquid 15 ML PO DAILY for 30 Days, #750 ML Continued Medications: Metoprolol Tartrate (Metoprolol Tartrate) 50 Mg Tablet 1 TAB PO BID Tamsulosin Hcl* (Flomax*) 0.4 Mg Cap.sr.24h 0.4 MG PO DAILY Discharge Summary: An 78 years old male with chronic AFib with RVR on non anticoagulation, throat cancer s/p radical surgery and XRT. s/p tonsillectomy or hernia repair surgery, and FHx of cancer in brother with prostate and lung cancer, sister had thyroid a nd stomach cancer presented with the acute right flank pain radiated downward to his groin and genital area. Hospital Course: Patient was admitted to the hospital for the acute abdominal pain found out the extensive constipation and found to have elevated serial troponin levels with [id number] without having any CP and EKG ST T changes on the admission possibly secondary from AFib with RVR and a uncontrolled hypertension. He was put on the IV Heparin for up to 48 hrs, and cardiology consultation was requested. Dr Yoo and cardiology team recommended for continuing home metoprolol 50 mg b.i.d., continue atorvastatin 40 mg daily with goal of LDL <55, anticoagulation was limited for his throat cancer history. His 2D echocardiogram showed mildly reduced function of LV with mild concentric hypertrophy, LVEF 45- 50%, severely dilated RV with mildly reduced function, RVSP 43 mm Hg, moderately dilated LA, severely dilated RA, mild MR, TR, normal pericardium and no effusion. His Afib was controlled first with IV diltiazem drip started at ER and after that it was well controlled with the metoprolol tartrate 100 mg BID and stable vitals signs were present during the hospitalization. We put him on the renal dose of Apixaban 2.5 mg BID for age above 80 and Cr of >1.5. He has had bowel movements mostly liquidity since he is mainly on the full liquid diet because of his throat cancer history. He was given multiple liquid form of the Laxatives and stool softners including Miralax, lactulose, and mineral oil enema as needed which were downgraded to the laxatives only because of his inclinining Creatinine. He was given IV normal saline 0.9% 70 ml/ hours. All of his home meds were reviewed and reconciled and continued properly. DVT prophylaxis was done with IV heparin for 48 hours and switch to SCDs. PT eval was provided during his stay. All of his questions and concerns were addressed and answered with the best of our knowledge. Today, all of his labs were reviewed WNL with WBC 12.9 trending down, Cr 2.68 trending down. All vitals were stable at that moment. On exam, General: Well alert, well oriented, not confused, not agitated, not in acute distress, well cooperated during the physical. HEENT: Conjunctive are pink, sclerae clear, no icterus, pupil is equal in both sides, reactive to light, no ear discharge, no pharyngeal erythema or an edema, mouth and lips are moist. Neck: Supple, no JVD, no lymphadenopathy and thyromegaly. 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, no motor and sensory weakness in all 4 extremities, could move all 4 extremities Musculoskeletal: No joint swelling, deformities, inflammations, and no scoliosis and back tenderness Skin: No active skin lesions and rashes Discharge instructions: - return to the ER for any emergency situations including intolerable progressive abdominal pain with Nausea and vomiting, progressive chest pain pressure or discomfort etc -PCP and Cardiology (Dr Russell's office) follow up in 1-2 weeks after discharge for further management including recheck labs (CBC CMP Procalcitonin and ESR in 5-7 days etc) -take at least 1000 ml fluid per day -Medication complaince is important -Would be beneficial to consult with Oncology and Stretcher Drier Operator for the follow up recheck and diet consultation Resident attestation: Patient was seen, examined and discussed with attending MD, Dr. Beny MARTINEZ MD Internal Medicine Resident, PGY2 [facility] *Problems/Diagnosis: (1) Constipation Status: Resolved (2) Non-ST elevation (NSTEMI) myocardial infarction Status: Resolved Total Time Spent on D/C: > 30 Minutes Date of Service: August 16, 2024 Billing Provider: BILL BAUM MD, TIN, RES August 16, 2024 11:25
--- NOTE | 2024-08-16 16:28 | PROGRESS NOTE- Residence ---
Progress Note - Resident Providers to CC Resident Creating Document: SHAQUILLE MARTINEZ, JESSE ~ Antibiotic Timeout Antibiotic Ordered?: Yes Subjective pt was having the BM which are liquidity, PT will be seeing the pt today. Pt was about to be discharged today after PT but PT recommended for the rehab and he will be waiting here till he got the Rehab Objective Vital Signs Date Time Temp Pulse Resp B/P (MAP) Pulse Ox O2 Delivery O2 Flow Rate FiO2 08/16/24 15:00 97.3 86 12 109/62 (78) 98 Nasal Cannula 2.0 Result Diagram: 08/16/24 0732 08/16/24 0732 Vitals were stable at the moment. On exam, General: Well alert, well oriented, not confused, not agitated, not in acute distress, well cooperated during the physical. HEENT: Conjunctive are pink, sclerae clear, no icterus, pupil is equal in both sides, reactive to light, no ear discharge, no pharyngeal erythema or an edema, mouth and lips are moist. Neck: Supple, no JVD, no lymphadenopathy and thyromegaly. 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, no motor and sensory weakness in all 4 extremities, could move all 4 extremities Musculoskeletal: No joint swelling, deformities, inflammations, and no scoliosis and back tenderness Skin: No active skin lesions and rashes Coagulation Studies Laboratory Tests Test 08/13/24 16:27 08/15/24 11:33 Prothrombin Time 11.0 SECONDS (9.0-12.0) INR International Normalized Ratio 1.1 INR Activated Partial Thromboplast Time 28 SECONDS (22-32) APTT (Heparin Protocol) 54 SECONDS (45-60) Coagulation Comments Assessment Assessment An 78 years old male with chronic AFib with RVR on non anticoagulation, throat cancer s/p radical surgery and XRT. s/p tonsillectomy or hernia repair surgery, and FHx of cancer in brother with prostate and lung cancer, sister had thyroid and stomach cancer presented with the acute right flank pain radiated downward to his groin and genital area. Plan Plan # T2MI 08/16/2024: continue medical management. Stop heparin after 48 hours 08/15/2024: Continue mainly medical management which was recommended by the Cardiology including IV heparin for 48 hours, DAPT, statin, metoprolol. -2D echocardiogram showed mildly reduced function of LV with mild concentric hypertrophy, LVEF 45-50%, severely dilated RV with mildly reduced function, RVSP 43 mm Hg, moderately dilated LA, severely dilated RA, mild MR, TR, normal pericardium and no effusion. -Cardiology is on board 08/14/2024:-patient is currently on IV heparin and continue it -possibly secondary from AFib with RVR and a uncontrolled hypertension. -consulted with Dr Yoo cardiology and appreciate it, who recommended for continuing home metoprolol 50 mg b.i.d., continue atorvastatin 40 mg daily with goal of LDL <55, anticoagulation was limited for his throat cancer history. # Acute abd pain from Constipation 08/16/2024: Patient had loose bowel motion which is liquidy as the patient is mainly on the full liquid diet. continue only Miralax as needed for now and trending up Cr 08/15/2024: Patient had bowel movements today, downgraded laxatives because of his in climbing creatinine level. 08/14/2024:-mineral oil prn -continue p.o. lactulose 30 mL b.i.d., p.o. MiraLax 17 g every HS, docusate 100 mg b.i.d. -we will consider soap enema if he wound have any bowel movement after those measures -control the pain with acetaminophen as much as possible to avoid unnecessary constipation from opiates -continue IV ciprofloxacin Day 2 # A fib w/ RVR on no anticoagulation 08/16/2024: Heart rate control around 90s, continue current metoprolol 100 mg b.i.d., we will need to discharge on metoprolol 50 mg b.i.d. as his blood pressure is on soft side 08/15/2024: Heart rate is not controlled well today, continue metoprolol 100 mg BID for better Afib control not on anticoag because of his throat cancer surgery PMH 08/14/2024:-was given IV diltiazem drip, cardiology recommended for titrating up current metoprolol as needed for rate control -currently maintaining heart rate around 90s # KIARA from renal tubular stasis 08/16/2024: Creatinine 2.68, gradually trending down from yesterday. Continue IV normal saline 0.9% 70 mL/hr. 08/15/2024:-creatinine is trending up to 2.75 today, downgrading the laxatives usage and optimize the fluid and continue IV normal saline 0.9% 70 ml/ hours. # hypertension -blood pressure is currently controlled, around 110/70 -continue IV hydralazine 10 mg PRN -patient is currently on the tamsulosin for his possible diagnosis of kidney stone/BPH # history of throat cancer -s/p radical resection surgery and XRT 25 years ago -currently on liquid diet only for two years now. -started and continue liquid centrum with multivitamins. CODE STATUS: Full code DVT prophylaxis: IV heparin for 48 hours and switch to SCDs Analgesia/sedation: Acetaminophen, IV morphine as needed Lines/tubes: Peripheral IV GI prophylaxis: None Nutrition: Liquid diet Prognosis: Guarded Disposition: Continue medical management, continue IV heparin as per Cardiology recommendation, GDMT, heart rate control, possible discharge home tomorrow. Resident MD attestation: Patient was seen, examined and discussed with attending MD, Dr. Beny MARTINEZ MD Internal Medicine Resident, PGY2 [facility] Date of Service: August 16, 2024 Billing Provider: BILL BAUM MD Common Visit Codes: [id number] INP/OBS CARE(HIGH) SHAQUILLE MARTINEZ, JESSE August 16, 2024 16:28 BILL BAUM MD August 16, 2024 18:57
[2024-08-16] MEDS: apixaban 2.5mg tablet PO SCH (19:14)
[2024-08-17] VITALS (7 sets, daily range): BP systolic 118–150; BP diastolic 72–98; PULSE 59–117; RESP 16–25; TEMP 97.5–98; O2SAT 94–97
[2024-08-17 07:20] LABS: BASOPHILS % (AUTO) 0.1 % (0-1); EOSINOPHILS # (AUTO) 0.1 X10'3 (0-0.9); EOSINOPHILS % (AUTO) 0.9 % (0-6); HEMATOCRIT 43.9 % (42.0-52.0); HEMOGLOBIN 14.6 g/dl (14.0-17.9); LYMPHOCYTES # (AUTO) 0.6 X10'3 (1.1-4.8); LYMPHOCYTES % (AUTO) 5.1 % (21-51); MEAN CORPUSCULAR HEMOGLOBIN 27.9 PG (27.0-31.0); MEAN CORPUSCULAR HGB CONC 33.3 g/dL (33.0-36.5); MEAN CORPUSCULAR VOLUME 83.7 FL (78-98); MEAN PLATELET VOLUME 9.2 FL (7.4-10.4); MONOCYTES # (AUTO) 1.6 X10'3 (0-0.9); MONOCYTES % (AUTO) 13.3 % (2-12); NEUTROPHILS # (AUTO) 9.7 X10'3 (1.8-7.7); NEUTROPHILS % (AUTO) 80.6 % (42-75); PLATELET COUNT 170 X10'3 (140-440); RED BLOOD COUNT 5.25 X10'6 (4.70-6.10); RED CELL DISTRIBUTION WIDTH 16.1 % (11.5-14.5); WHITE BLOOD COUNT 12.1 X10'3 (4.5-11.0)
[2024-08-17 07:37] LABS: ALANINE AMINOTRANSFERASE 19 U/L (12-78); ALBUMIN 2.5 G/DL (3.4-5.0); ALBUMIN/GLOBULIN RATIO 0.6 (1.1-1.5); ALKALINE PHOSPHATASE 128 IU/L (46-116); ANION GAP 12 (8-16); ASPARTATE AMINO TRANSFERASE 24 U/L (10-37); BILIRUBIN,TOTAL 1.5 MG/DL (0.1-1.0); BLOOD UREA NITROGEN 50 MG/DL (7-18); BUN/CREATININE RATIO 20.3 (10.0-20.0); CALCIUM 8.2 MG/DL (8.5-10.1); CHLORIDE 103 MMOL/L (99-107); CREATININE 2.46 MG/DL (0.60-1.10); GLUCOSE 96 MG/DL (70-104); MAGNESIUM 2.4 MG/DL (1.5-2.4); POTASSIUM 3.6 MMOL/L (3.5-5.1); SODIUM 137 MMOL/L (135-145); TOTAL CARBON DIOXIDE 21.9 MMOL/L (24-32); TOTAL PROTEIN 6.7 G/DL (6.4-8.2); eCRCL 25 ML/MIN; eGFR 25 ML/MIN
[2024-08-17] MEDS: aspirin 81mg tab.chew PO SCH (09:11)
[2024-08-17] MEDS: metoprolol tartrate 1mg/ml inj IV ONE ×2 (10:04→16:23)
--- NOTE | 2024-08-17 17:31 | PROGRESS NOTE- Residence ---
Progress Note - Resident Providers to CC Resident Creating Document: SHAQUILLE MARTINEZ RES ~ Antibiotic Timeout Antibiotic Ordered?: No Subjective Patient was accepted by the rehab, but the patient developed AFib with RVR this morning as maximum of heart rate 150 as the patient could not take the full dosage of metoprolol 100 mg b.i.d. every time due to his dysphagia. He did not report for any noticeable significant weight loss Objective Vital Signs Date Time Temp Pulse Resp B/P (MAP) Pulse Ox O2 Delivery O2 Flow Rate FiO2 08/17/24 16:23 134 08/17/24 11:00 97.7 17 150/98 (115) 96 Room Air 08/17/24 09:00 3.0 Result Diagram: [id number]/17/2462708/17/24627 Vitals were stable at the moment. On exam, General: Well alert, well oriented, not confused, not agitated, not in acute distress, well cooperated during the physical. HEENT: Conjunctive are pink, sclerae clear, no icterus, pupil is equal in both sides, reactive to light, no ear discharge, no pharyngeal erythema or an edema, mouth and lips are moist. Neck: Supple, no JVD, no lymphadenopathy and thyromegaly. Lungs:Equal air entry on both lungs, no additional sounds Heart: S1-S2 regular sinus rhythm and, regular rate, no gallops, no rubs, no murmurs Abdomen: No visible peristalsis, Bowel sounds present on auscultation, soft, slight tenderness at the right flank, and left sided, no guarding, no rigidity, ESTRADA was deferred Extremities: No obvious deformities, no pitting edema bilaterally, capillary refill intact, able to wiggle toes both sides, peripheral pulsations are intact on both sides [employer] HE[employer] ANALYST: No focal neurological deficits, no motor and sensory weakness in all 4 extremities, could move all 4 extremities Musculoskeletal: No joint swelling, deformities, inflammations, and no scoliosis and back tenderness Skin: No active skin lesions and rashes Coagulation Studies Laboratory Tests Test 08/13/24 16:27 08/15/24 11:33 Prothrombin Time 11.0 SECONDS (9.0-12.0) INR International Normalized Ratio 1.1 INR Activated Partial Thromboplast Time 28 SECONDS (22-32) APTT (Heparin Protocol) 54 SECONDS (45-60) Coagulation Comments Assessment Assessment An 78 years old male with chronic AFib with RVR on non anticoagulation, throat cancer s/p radical surgery and XRT. s/p tonsillectomy or hernia repair surgery, and FHx of cancer in brother with prostate and lung cancer, sister had thyroid and stomach cancer presented with the acute right flank pain radiated downward to his groin and genital area. Plan Plan # dysphagia and food residual regurgitation 08/17/2024: Patient agrees to have ST eval this time, he underwent ST eval which recommended for GI/ENT recommendation/consultation for full residual regurgitation and could not swallow the food because of the stenosis from post surgical resection and XRT. -GI, Dr Colorado was requested for the consultation, plans to do EGD with a possible plan of esophageal dilatation if it is allows and feasible. Otherwise, needs the PEG feeding tube. # T2MI 08/17/2024: Completed heparin IV 48 hours, on aspirin and Eliquis, continue medical therapy 08/16/2024: continue medical management. Stop heparin after 48 hours 08/15/2024: Continue mainly medical management which was recommended by the Cardiology including IV heparin for 48 hours, DAPT, statin, metoprolol. -2D echocardiogram showed mildly reduced function of LV with mild concentric hypertrophy, LVEF 45-50%, severely dilated RV with mildly reduced function, RVSP 43 mm Hg, moderately dilated LA, severely dilated RA, mild MR, TR, normal pericardium and no effusion. -Cardiology is on board 08/14/2024:-patient is currently on IV heparin and continue it -possibly secondary from AFib with RVR and a uncontrolled hypertension. -consulted with Dr Yoo cardiology and appreciate it, who recommended for continuing home metoprolol 50 mg b.i.d., continue atorvastatin 40 mg daily with goal of LDL <55, anticoagulation was limited for his throat cancer history. # Acute abd pain from Constipation 08/17/2024: Is having bowel movement mostly liquidy as the patient is on the liquid diet. 08/16/2024: Patient had loose bowel motion which is liquidy as the patient is mainly on the full liquid diet. continue only Miralax as needed for now and trending up Cr 08/15/2024: Patient had bowel movements today, downgraded laxatives because of his in climbing creatinine level. 08/14/2024:-mineral oil prn -continue p.o. lactulose 30 mL b.i.d., p.o. MiraLax 17 g every HS, docusate 100 mg b.i.d. -we will consider soap enema if he wound have any bowel movement after those measures -control the pain with acetaminophen as much as possible to avoid unnecessary constipation from opiates -continue IV ciprofloxacin Day 2 # A fib w/ RVR on no anticoagulation 08/17/2024: Given one time dose of IV labetalol 5 mg, and another one time dose of IV labetalol 10 mg for RVR, patient needs to be on maintenance metoprolol 50 mg b.i.d. at least. 08/16/2024: Heart rate control around 90s, continue current metoprolol 100 mg b.i.d., we will need to discharge on metoprolol 50 mg b.i.d. as his blood pressure is on soft side 08/15/2024: Heart rate is not controlled well today, continue metoprolol 100 mg BID for better Afib control not on anticoag because of his throat cancer surgery PM 08/14/2024:-was given IV diltiazem drip, cardiology recommended for titrating up current metoprolol as needed for rate control -currently maintaining heart rate around 90s # KIARA from renal tubular stasis 08/17/2024: Not much difference in creatinine, continue monitoring including I's and O's 08/16/2024: Creatinine 2.68, gradually trending down from yesterday. Continue IV normal saline 0.9% 70 mL/hr. 08/15/2024:-creatinine is trending up to 2.75 today, downgrading the laxatives usage and optimize the fluid and continue IV normal saline 0.9% 70 ml/ hours. # hypertension -blood pressure is currently controlled, around 110/70 -continue IV hydralazine 10 mg PRN -patient is currently on the tamsulosin for his possible diagnosis of kidney stone/BPH # history of throat cancer -s/p radical resection surgery and XRT 25 years ago -currently on liquid diet only for two years now. -started and continue liquid centrum with multivitamins. CODE STATUS: Full code DVT prophylaxis: IV heparin for 48 hours and switch to SCDs Analgesia/sedation: Acetaminophen, IV morphine as needed Lines/tubes: Peripheral IV GI prophylaxis: None Nutrition: Liquid diet Prognosis: Guarded Disposition: Continue medical management, continue with EGD plan, continue IV heparin as per Cardiology recommendation and GDMT, heart rate control, possible discharge to rehab after sorted out for dysphagia. Resident MD attestation: Patient was seen, examined and discussed with attending MD, Dr. Melissa MARTINEZ MD Internal Medicine Resident, PGY2 [facility] Addendum hold eliquis for egd in am Date of Service: August 17, 2024 Billing Provider: AYAAN GREY MD Common Visit Codes: [id number] INP/OBS CARE(HIGH) SHAQUILLE MARTINEZ, RES August 17, 2024 17:31 AYAAN GREY MD August 17, 2024 21:17
--- NOTE | 2024-08-17 18:46 | CONSULTATION REPORT - RESIDENT ---
Consult Providers to CC Resident Creating Document: BOBY PELLETIER RES History of Present Illness Reason for Admit\Complaint: Dysphagia History of Present Illness This is an 78-year-old male with a complex medical history, including chronic atrial fibrillation (AFib) with RVR, throat cancer treated with radical resection and XRT, and longstanding dysphagia, presenting with worsening GI symptoms. The patient was admitted with acute abdominal pain and severe constipation, which has been a recurrent issue. His dysphagia has progressively worsened over the past two years, limiting him to a full liquid diet. He reports persistent regurgitation of food and difficulty swallowing solids, likely due to esophageal stenosis from prior radiation therapy and surgical resection. The patient also described recent episodes of liquid bowel movements following aggressive bowel regimens, including Miralax, lactulose, and mineral oil enemas, which were initiated for significant constipation. He denies nausea or vomiting but complains of intermittent abdominal bloating. Pain control was managed with acetaminophen to avoid exacerbating constipation. During this hospitalization, he was found to have elevated troponin levels ([id number]), consistent with a Type 2 myocardial infarction (T2MI) secondary to AFib with RVR and uncontrolled hypertension. A speech therapy evaluation highlighted significant esophageal stenosis with residual regurgitation of food, prompting a GI consultation for further management. The patients creatinine has been improving (currently 2.68, trending down). Allergies: Coded Allergies: Penicillins (Verified Adverse Reaction, Unknown, RASH, 08/13/24) Home Medications Home Medications Active Centrum Multivit-Mineral Liq (Multivits W-Min/Ferrous Gluc) 9 Mg Iron/15 Ml Liquid 15 Ml PO DAILY 30 Days Atorvastatin Calcium 20 Mg Tablet 40 Mg PO DAILY 30 Days Eliquis (Apixaban) 2.5 Mg Tablet 2.5 Mg PO BID 30 Days Ciprofloxacin HCl (Ciprofloxacin) 500 Mg Tab 1 Tab PO Q12H 5 Days Reported Flomax* (Tamsulosin HCl) 0.4 Mg Cap.sr.24h 0.4 Mg PO DAILY Metoprolol Tartrate 50 Mg Tablet 1 Tab PO BID Past Medical History Past Medical History Throat cancer Abdominal pain Constipation AFib with RVR Hypertension Past Surgical History Surgical History Comment Surgical resection of throat cancer Past Social History Social History Comment Patient has a history of smoking but quit many years ago. Denies alcohol and illicit drug use ROS ROS Reviewed in full. All negative except for pertinent positive HPI. Exam Vitals: Vital Signs Date Time Temp Pulse Resp B/P (MAP) Pulse Ox O2 Delivery O2 Flow Rate FiO2 08/17/24 16:23 134 08/17/24 11:00 97.7 17 150/98 (115) 96 Room Air 08/17/24 09:00 3.0 General: Awake , alert, and oriented x4, resting comfortably in the bed, in no acute distress HEENT: Atraumatic, normocephalic, EOMI, anicteric sclera ; pink conjunctiva Neck: Trachea midline. Supple, full range of motion, no JVD Cardiac: Irregular rhythm, irregular rate with no murmurs all over the precordium. Respiratory: Equal breath sounds bilaterally, no tachypnea, no wheezing ,rub or rales, Chest wall is symmetric and without deformity. Gastrointestinal: Abdomen symmetric, non-distended, soft, slight tenderness at the right and left flank, normal bowel sounds x4 quadrant, normoactive, no hepatosplenomegaly Musculoskeletal: No pedal edema, no cyanosis Neurological: Speech is clear, alert, and oriented x 4. No motor or sensory deficit, deep tendon reflexes normal, cerebellar intact. Cranial nerves II-XII intact. Skin: Warm and dry Diagnostic Data Last Recorded Lab Results: 08/17/24 0608/17/24627 Diagnostic Data: Laboratory Tests Test 08/13/24 16:27 08/15/24 11:33 Prothrombin Time 11.0 SECONDS (9.0-12.0) INR International Normalized Ratio 1.1 INR Activated Partial Thromboplast Time 28 SECONDS (22-32) APTT (Heparin Protocol) 54 SECONDS (45-60) Coagulation Comments Additional Plan Vitals: Stable; BP controlled at 110/70. Labs: WBC 12.9 (trending down), Cr 2.68 (trending down), troponins stable. ImaginD echocardiogram revealed LVEF 45-50%, RV dilation with mildly reduced function, moderate LA and severe RA dilation, mild MR and TR. Assessment & Plan: 1. Dysphagia with residual food regurgitation: Likely due to esophageal stenosis from prior surgery and XRT (secondary to throat cancer). Recurrent head and neck cancer should be considered. Plan for EGD with possible esophageal dilatation tomorrow. Esophageal dilatation may not be feasible or safe, because the stricture could very likely be secondary to previous XRT and surgery. PEG placement should be considered if esophageal dilatation is not feasible which would help maintain nutrition, hydration, and help administering medication that can not swallow. Continue liquid diet with liquid multivitamins to maintain nutrition. NPO after midnight 2. Acute abdominal pain from severe constipation: Symptoms now improving with bowel movements. Adjust laxatives as needed (Miralax PRN) to balance efficacy with renal function. Maintain hydration with IV normal saline at 70 mL/hr. Monitor for recurrence of constipation or bloating. 3. Type 2 myocardial infarction (T2MI): Completed IV heparin; transitioned to renal-dose apixaban (2.5 mg BID). Continue aspirin, atorvastatin 40 mg daily, and metoprolol 50 mg BID. 4. Chronic AFib with RVR: Rate well-controlled on metoprolol 50 mg BID. Continue apixaban for stroke prophylaxis. 5. Acute kidney injury (KIARA) from tubular stasis: Creatinine trending down; continue to monitor renal function and optimize hydration. 6. Hypertension: Blood pressure remains controlled with PRN hydralazine. 7. History of throat cancer: Nutritional support with liquid diet and multivitamins ongoing. EGD findings will guide long-term feeding strategy. GI Recommendations: EGD for evaluation of esophageal stenosis. Plan for esophageal dilatation or PEG placement based on findings. Continue liquid diet until further intervention. Code Status: Full code DVT Prophylaxis: Apixaban Prognosis: Guarded Disposition: EGD tomorrow in a.m. Boby Pelletier MD Internal Medicine Resident, PGY-1 Date of Service: August 17, 2024 Billing Provider: SIGIFREDO ROSALES MD, GAURAV, RES August 17, 2024 18:46 SIGIFREDO ROSALES MD August 18, 2024 11:49
[2024-08-17] MEDS: HYDROcodone/acetaminophen 10/325mg tab PO PRN (21:09)
[2024-08-17] MEDS: metroNIDAZOLE-Flagyl 500mg/NS 100 ML IV SCH (23:45)
[2024-08-18] VITALS (17 sets, daily range): BP systolic 103–182; BP diastolic 20–131; PULSE 22–142; RESP 12–26; TEMP 97–97.8; O2SAT 86–98
[2024-08-18] MEDS: morphine 2 MG/ML inj. syringe IV PRN (05:10)
[2024-08-18 07:35] LABS: BASOPHILS % (AUTO) 0.1 % (0-1); EOSINOPHILS % (AUTO) 0.2 % (0-6); HEMATOCRIT 48.3 % (42.0-52.0); HEMOGLOBIN 16.1 g/dl (14.0-17.9); LYMPHOCYTES # (AUTO) 0.4 X10'3 (1.1-4.8); LYMPHOCYTES % (AUTO) 2.3 % (21-51); MEAN CORPUSCULAR HEMOGLOBIN 27.9 PG (27.0-31.0); MEAN CORPUSCULAR HGB CONC 33.4 g/dL (33.0-36.5); MEAN CORPUSCULAR VOLUME 83.7 FL (78-98); MONOCYTES # (AUTO) 2.2 X10'3 (0-0.9); MONOCYTES % (AUTO) 11.8 % (2-12); NEUTROPHILS # (AUTO) 16.3 X10'3 (1.8-7.7); NEUTROPHILS % (AUTO) 85.6 % (42-75); PLATELET COUNT 184 X10'3 (140-440); RED BLOOD COUNT 5.77 X10'6 (4.70-6.10); RED CELL DISTRIBUTION WIDTH 15.9 % (11.5-14.5); WHITE BLOOD COUNT 19.1 X10'3 (4.5-11.0)
[2024-08-18 08:24] LABS: ALANINE AMINOTRANSFERASE 33 U/L (12-78); ALBUMIN 2.7 G/DL (3.4-5.0); ALBUMIN/GLOBULIN RATIO 0.6 (1.1-1.5); ALKALINE PHOSPHATASE 148 IU/L (46-116); ANION GAP 16 (8-16); ASPARTATE AMINO TRANSFERASE 52 U/L (10-37); BILIRUBIN,TOTAL 1.7 MG/DL (0.1-1.0); BLOOD UREA NITROGEN 64 MG/DL (7-18); CALCIUM 8.4 MG/DL (8.5-10.1); CHLORIDE 101 MMOL/L (99-107); CREATININE 4.01 MG/DL (0.60-1.10); GLUCOSE 110 MG/DL (70-104); SODIUM 135 MMOL/L (135-145); TOTAL CARBON DIOXIDE 18.4 MMOL/L (24-32); TOTAL PROTEIN 7.6 G/DL (6.4-8.2); eCRCL 15 ML/MIN; eGFR 14 ML/MIN
[2024-08-18 08:27] LABS: POTASSIUM 4.5 MMOL/L (3.5-5.1)
[2024-08-18] MEDS ORDERED: MIDAZolam 1 MG/ML 5ML VIAL ONE (09:03)
[2024-08-18] MEDS ORDERED: fentaNYL/PF 50MCG/1 ML 2ML syringe ONE (09:03)
[2024-08-18] MEDS ORDERED: LIDOcaine 2% Viscous 15ml cup ONE (09:03)
[2024-08-18] MEDS: diltiazem 5mg/ml 5ml inj. IV ONE ×2 (13:18→15:15)
--- NOTE | 2024-08-18 13:29 | PROGRESS NOTE- Residence ---
Progress Note - Resident Providers to CC Resident Creating Document: TONYLesaBOBY RES ~ Antibiotic Timeout Antibiotic Ordered?: No Subjective Post-Procedure Upper Endoscopy (EGD) Note Procedure: Upper Endoscopy (Esophagogastroduodenoscopy - EGD) Indications: Evaluation of severe dysphagia, suspected malignancy, and ongoing gastrointestinal symptoms. 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 The mass poses a significant risk of airway obstruction and complete obstruction in the piriform fossa, contributing to absolute dysphagia. Esophagus: Mucosal changes suggestive of eosinophilic esophagitis were observed in the middle third of the esophagus. Findings included a ringed esophagus, graded as Grade 2 Moderate on the Eosinophilic Esophagitis Endoscopic Reference Score (EoE-EREFS): distinct rings that do not occlude passage of an 8-10 mm endoscope. Biopsies were taken with cold forceps for histology. Stomach: Severe diffuse mucosal changes throughout the entire examined stomach characterized by congestion, erythema, friability (with contact bleeding), granularity, and linear erosions. Biopsies were taken for histology. Duodenum: Multiple non-bleeding cratered duodenal ulcers with pigmented material were identified in the duodenal bulb and second portion of the duodenum. Interventions: Biopsies were obtained from the pharyngeal mass, esophagus, stomach, and duodenal mucosa. Estimated blood loss during the procedure was minimal. Complications: None. Recommendations: Post-Procedure Care: Return the patient to the hospital [facility] for ongoing care and monitoring. Resume the previous diet as tolerated. Continue current medications. Pharmacological Therapy: Increase Protonix (pantoprazole) to 40 mg IV b.i.d. to promote healing of peptic ulcer disease (PUD). Specialist Referral: Urgent ENT consultation for evaluation and management of the posterior pharyngeal mass and impending airway obstruction. Nutritional Support: Consider placement of a percutaneous endoscopic gastrostomy (PEG) tube for nutritional support after adequate healing of PUD with proton pump inhibitor therapy, given the anticipated absolute dysphagia. Pathology and Follow-Up: Await pathology results from all biopsies to determine the nature of the pharyngeal mass, gastric changes, and eosinophilic esophagitis. Follow up with the primary care physician and gastroenterology for management based on biopsy results. Procedure Performed By: Date: 08/18/24 Objective Vital Signs Date Time Temp Pulse Resp B/P (MAP) Pulse Ox O2 Delivery O2 Flow Rate FiO2 08/18/24 13:18 144 142/68 08/18/24 10:45 24 94 Nasal Cannula 2.0 08/18/24 06:50 97.6 Result Diagram: 08/18/24 0721 08/18/24 0721 Coagulation Studies Laboratory Tests Test 08/13/24 16:27 08/15/24 11:33 Prothrombin Time 11.0 SECONDS (9.0-12.0) INR International Normalized Ratio 1.1 INR Activated Partial Thromboplast Time 28 SECONDS (22-32) APTT (Heparin Protocol) 54 SECONDS (45-60) Coagulation Comments Date of Service: August 18, 2024 Billing Provider: SIGIFREDO ROSALES MD, GAURAV, RES August 18, 2024 13:29
--- NOTE | 2024-08-18 16:52 | PROGRESS NOTE- Residence ---
Progress Note - Resident Providers to CC Resident Creating Document: SOFIA BLANKENSHIPAMINTA RES ~ Antibiotic Timeout Antibiotic Ordered?: Yes Subjective Patient seen and examined today. Got an upper EGD done today. Denies any new complaints. Resumed full liquid diet per GI recommendations Objective Vital Signs Date Time Temp Pulse Resp B/P (MAP) Pulse Ox O2 Delivery O2 Flow Rate FiO2 08/18/24 15:15 124 121/70 08/18/24 15:15 97.8 12 95 08/18/24 10:45 Nasal Cannula 2.0 Result Diagram: 08/18/24 0721 08/18/24 0721 General: Well alert, well oriented, not confused, not agitated, not in acute distress, well cooperated during the physical. HEENT: Conjunctive are pink, sclerae clear, no icterus, pupil is equal in both sides, reactive to light, no ear discharge, no pharyngeal erythema or an edema, mouth and lips are moist. Neck: Supple, no JVD, no lymphadenopathy and thyromegaly. 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, no motor and sensory weakness in all 4 extremities, could move all 4 extremities Musculoskeletal: No joint swelling, deformities, inflammations, and no scoliosis and back tenderness Skin: No active skin lesions and rashes Coagulation Studies Laboratory Tests Test 08/13/24 16:27 08/15/24 11:33 Prothrombin Time 11.0 SECONDS (9.0-12.0) INR International Normalized Ratio 1.1 INR Activated Partial Thromboplast Time 28 SECONDS (22-32) APTT (Heparin Protocol) 54 SECONDS (45-60) Coagulation Comments Assessment Assessment An 78 years old male with chronic AFib with RVR on non anticoagulation, throat cancer s/p radical surgery and XRT. s/p tonsillectomy or hernia repair surgery, and FHx of cancer in brother with prostate and lung cancer, sister had thyroid and stomach cancer presented with the acute right flank pain radiated downward to his groin and genital area. Plan Plan # dysphagia and food residual regurgitation 08/17/2024: Patient agrees to have ST eval this time, he underwent ST eval which recommended for GI/ENT recommendation/consultation for full residual regurgitation and could not swallow the food because of the stenosis from post surgical resection and XRT. -GI, Dr Colorado was requested for the consultation, plans to do EGD with a possible plan of esophageal dilatation if it is allows and feasible. Otherwise, needs the PEG feeding tube. On 08/18/2024: EGD done which showed large bulky nodular and friable mass in the posterior following suspicion for recurrent malignancy, eosinophilic esophagitis, friable eroded mucosa in the stomach and nonbleeding duodenal ulcers. Multiple biopsies taken. Patient is encouraged to have full liquid diet. Increase Protonix to 40 mg IV b.i.d.. Recommended stat ENT consultation. Follow up with the pathology reports -on ciprofloxacin and metronidazole. Elevated WBCs # T2MI 08/18/2024: On aspirin 81 mg p.o. daily. Hold Eliquis for EGD today. Holding Eliquis for possible PEG tube placement. Will consult GI tomorrow about questionable PEG tube placement 08/17/2024: Completed heparin IV 48 hours, on aspirin and Eliquis, continue medical therapy 08/16/2024: continue medical management. Stop heparin after 48 hours 08/15/2024: Continue mainly medical management which was recommended by the Cardiology including IV heparin for 48 hours, DAPT, statin, metoprolol. -2D echocardiogram showed mildly reduced function of LV with mild concentric hypertrophy, LVEF 45-50%, severely dilated RV with mildly reduced function, RVSP 43 mm Hg, moderately dilated LA, severely dilated RA, mild MR, TR, normal pericardium and no effusion. -Cardiology is on board 08/14/2024:-patient is currently on IV heparin and continue it -possibly secondary from AFib with RVR and a uncontrolled hypertension. -consulted with Dr Yoo cardiology and appreciate it, who recommended for continuing home metoprolol 50 mg b.i.d., continue atorvastatin 40 mg daily with goal of LDL <55, anticoagulation was limited for his throat cancer history. # Acute abd pain from Constipation 08/18/2024: Is having bowel movements. Is on full liquid diet 08/17/2024: Is having bowel movement mostly liquidy as the patient is on the liquid diet. 08/16/2024: Patient had loose bowel motion which is liquidy as the patient is mainly on the full liquid diet. continue only Miralax as needed for now and trending up Cr 08/15/2024: Patient had bowel movements today, downgraded laxatives because of his in climbing creatinine level. 08/14/2024:-mineral oil prn -continue p.o. lactulose 30 mL b.i.d., p.o. MiraLax 17 g every HS, docusate 100 mg b.i.d. -we will consider soap enema if he wound have any bowel movement after those measures -control the pain with acetaminophen as much as possible to avoid unnecessary constipation from opiates -continue IV ciprofloxacin Day 2 # A fib w/ RVR on no anticoagulation 08/18/2024: Patient's heart rate went up to 140s. Given one dose of Cardizem 20 mg IV push. Heart rate remained in 110s to 120s. Given another dose of Cardizem 25 mg IV push about 2 hours later. Now, heart rate remained less than 110/minute. If needed, will start Cardizem drip. LVEF 40-45%. 08/17/2024: Given one time dose of IV labetalol 5 mg, and another one time dose of IV labetalol 10 mg for RVR, patient needs to be on maintenance metoprolol 50 mg b.i.d. at least. 08/16/2024: Heart rate control around 90s, continue current metoprolol 100 mg b.i.d., we will need to discharge on metoprolol 50 mg b.i.d. 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 Persistent oliguria- urine output less than 0.5 mL/kg/hour. Urine lytes ordered. Will consult Nephrology tomorrow in a.m. if creatinine remains high or trends up. Worsening metabolic acidosis. Increase normal saline 100 cc/hour. Taper fluids tomorrow 08/17/2024: Not much difference in creatinine, continue monitoring including I's and O's 08/16/2024: Creatinine 2.68, gradually trending down from yesterday. Continue IV normal saline 0.9% 70 mL/hr. 08/15/2024:-creatinine is trending up to 2.75 today, downgrading the laxatives usage and optimize the fluid and continue IV normal saline 0.9% 70 ml/ hours. # hypertension -blood pressure is currently controlled, around 110/70 -continue IV hydralazine 10 mg PRN -patient is currently on the tamsulosin for his possible diagnosis of kidney stone/BPH # history of throat cancer -s/p radical resection surgery and XRT 25 years ago -currently on liquid diet only for two years now. -started and continue liquid centrum with multivitamins. CODE STATUS: Full code DVT prophylaxis: IV heparin for 48 hours and switch to SCDs Analgesia/sedation: Acetaminophen, IV morphine as needed Lines/tubes: Peripheral IV GI prophylaxis: None Nutrition: Liquid diet Prognosis: Guarded Disposition: Consider starting Cardizem drip if heart rate remains more than 110/minute. Increase IV fluids to 100 cc/hour. Taper IV fluids as he has underlying heart failure with mid-range EF - 45-50 %. Monitor RFTs and consult Nephrology tomorrow in the a.m. if no improvement in creatinine noted. Follow up with EGD biopsy reports. Requires stat ENT consult. Discuss with GI about possible PEG tube placement. Start anticoagulation for AFib if no procedure planned Jonathan Blankenship MD Internal Medicine Resident, PGY 2 Addendum egd showed recurrent throat ca, bx taken; needs ct neck but creatinine worsened; MRI? will discuss with pt about his condition kiara, ivf, monitor closely if treatment seeking by pt might need gtube placement Date of Service: August 18, 2024 Billing Provider: JONATHAN BLANKENSHIP RES Common Visit Codes: [id number] INP/OBS CARE(HIGH) JONATHAN BLANKENSHIP RES August 18, 2024 16:52 AYAAN GREY MD August 18, 2024 19:59
[2024-08-18] MEDS: normal saline 1000ml 1,000 ML IV SCH (17:19)
[2024-08-18] MEDS: pantoprazole 40 MG vial IV SCH (20:12)
[2024-08-18] MEDS: metoprolol tartrate 1mg/ml inj IV SCH (20:45)
[2024-08-19] VITALS (23 sets, daily range): BP systolic 103–156; BP diastolic 66–109; PULSE 89–145; RESP 14–33; TEMP 97.2–97.9; O2SAT 92–98
[2024-08-19] MEDS: diltiazem-D5W 125mg/125ml 125 ML IV SCH (02:30)
[2024-08-19] MEDS: metoprolol tartrate 1mg/ml inj IV SCH (03:24)
[2024-08-19] MEDS: diltiazem-NS 100mg/100ml 100 ML IV SCH ×2 (08:18→10:52)
[2024-08-19 08:45] LABS: BASOPHILS % (AUTO) 0.1 % (0-1); EOSINOPHILS % (AUTO) 0.1 % (0-6); HEMATOCRIT 44.7 % (42.0-52.0); HEMOGLOBIN 14.9 g/dl (14.0-17.9); LYMPHOCYTES # (AUTO) 0.4 X10'3 (1.1-4.8); LYMPHOCYTES % (AUTO) 2.1 % (21-51); MEAN CORPUSCULAR HEMOGLOBIN 28.3 PG (27.0-31.0); MEAN CORPUSCULAR HGB CONC 33.4 g/dL (33.0-36.5); MEAN CORPUSCULAR VOLUME 84.6 FL (78-98); MEAN PLATELET VOLUME 9.1 FL (7.4-10.4); MONOCYTES # (AUTO) 2.1 X10'3 (0-0.9); NEUTROPHILS # (AUTO) 15.2 X10'3 (1.8-7.7); NEUTROPHILS % (AUTO) 85.7 % (42-75); PLATELET COUNT 178 X10'3 (140-440); RED BLOOD COUNT 5.28 X10'6 (4.70-6.10); RED CELL DISTRIBUTION WIDTH 16.3 % (11.5-14.5); WHITE BLOOD COUNT 17.7 X10'3 (4.5-11.0)
[2024-08-19 08:56] LABS: ALBUMIN 2.3 G/DL (3.4-5.0); ANION GAP 16 (8-16); BLOOD UREA NITROGEN 72 MG/DL (7-18); BUN/CREATININE RATIO 15.9 (10.0-20.0); CHLORIDE 104 MMOL/L (99-107); CREATININE 4.54 MG/DL (0.60-1.10); GLUCOSE 106 MG/DL (70-104); SODIUM 137 MMOL/L (135-145); TOTAL CARBON DIOXIDE 16.9 MMOL/L (24-32); eCRCL 13 ML/MIN; eGFR 13 ML/MIN
[2024-08-19 11:24] LABS: MAGNESIUM 2.1 MG/DL (1.5-2.4)
--- NOTE | 2024-08-19 11:41 | PROGRESS NOTE- Residence ---
Progress Note - Resident Providers to CC Resident Creating Document: BOBY PELLETIER RES ~ Antibiotic Timeout Antibiotic Ordered?: No Subjective Patient seen and examined today. Denies any new complaints. Diet as patient tolerates. Objective Vital Signs Date Time Temp Pulse Resp B/P (MAP) Pulse Ox O2 Delivery O2 Flow Rate FiO2 08/19/24 11:00 97.7 120 20 123/94 (104) 93 Nasal Cannula 2.0 Result Diagram: 08/19/24 0708 08/19/24 0708 Awake , alert, and oriented x4, resting comfortably in the bed, in no acute distress HEENT: Atraumatic, normocephalic, EOMI, anicteric sclera ; pink conjunctiva Neck: Trachea midline. Supple, full range of motion, no JVD Cardiac: Irregular rhythm, irregular rate with no murmurs all over the precordium. Respiratory: Equal breath sounds bilaterally, no tachypnea, no wheezing ,rub or rales, Chest wall is symmetric and without deformity. Gastrointestinal: Abdomen symmetric, non-distended, soft, slight tenderness at the right and left flank, normal bowel sounds x4 quadrant, normoactive, no hepatosplenomegaly Musculoskeletal: No pedal edema, no cyanosis Neurological: Speech is clear, alert, and oriented x 4. No motor or sensory deficit, deep tendon reflexes normal, cerebellar intact. Cranial nerves II-XII intact. Skin: Warm and dry Coagulation Studies Laboratory Tests Test 08/13/24 16:27 08/15/24 11:33 Prothrombin Time 11.0 SECONDS (9.0-12.0) INR International Normalized Ratio 1.1 INR Activated Partial Thromboplast Time 28 SECONDS (22-32) APTT (Heparin Protocol) 54 SECONDS (45-60) Coagulation Comments Advance Care Planning Advanced Care plannin - 30 Minutes Assessment Assessment An 78 years old male with chronic AFib with RVR on non anticoagulation, throat cancer s/p radical surgery and XRT. s/p tonsillectomy or hernia repair surgery, and FHx of cancer in brother with prostate and lung cancer, sister had thyroid and stomach cancer presented with the acute right flank pain radiated downward to his groin and genital area. Plan Plan 1. Dysphagia with residual food regurgitation: S/P EGD on 08/18/24 Nodular Mass in posterior pharynx, suspicious for malignancy Eosinophilic esophagitis- middle third of the esophagus Multiple non-bleeding cratered duodenal ulcers EGD on 08/18/24 showed: A large, bulky, exophytic, nodular, friable, and highly vascular mass was identified in the posterior pharynx, suspicious for malignancy. The mass poses a significant risk of airway obstruction and complete obstruction in the piriform fossa, contributing to absolute dysphagia. Mucosal changes suggestive of eosinophilic esophagitis were observed in the middle third of the esophagus. Findings included a ringed esophagus, graded as Grade 2 Moderate on the Eosinophilic Esophagitis Endoscopic Reference Score (EoE-EREFS): distinct rings that do not occlude passage of an 8-10 mm endoscope. Severe diffuse mucosal changes throughout the entire examined stomach characterized by congestion, erythema, friability (with contact bleeding), granularity, and linear erosions. Multiple non-bleeding cratered duodenal ulcers with pigmented material were identified in the duodenal bulb and second portion of the duodenum. Continue diet as tolerated. Continue Protonix (pantoprazole) to 40 mg IV b.i.d. to promote healing of peptic ulcer disease (PUD). Urgent ENT consultation for evaluation and management of the posterior pharyngeal mass and impending airway obstruction. Consider placement of a percutaneous endoscopic gastrostomy (PEG) tube for nutritional support after adequate healing of PUD with proton pump inhibitor therapy, given the anticipated absolute dysphagia. Await pathology results from all biopsies to determine the nature of the pharyngeal mass, gastric changes, and eosinophilic esophagitis. Follow up with the primary care physician and gastroenterology for management based on biopsy results. 2. Acute abdominal pain from severe constipation: Symptoms now improving with bowel movements. Adjust laxatives as needed (Miralax PRN) to balance efficacy with renal function. Maintain hydration with IV normal saline at 70 mL/hr. Monitor for recurrence of constipation or bloating. 3. Type 2 myocardial infarction (T2MI): Completed IV heparin; transitioned to renal-dose apixaban (2.5 mg BID). Continue aspirin, atorvastatin 40 mg daily, and metoprolol 50 mg BID. 4. Chronic AFib with RVR: Rate well-control per Hospitalist team, currently on Diltiazem drip Continue apixaban for stroke prophylaxis. 5. Acute kidney injury (KIARA) from tubular stasis: Creatinine trending up, consider Nephrology consultation 6. Hypertension: Blood pressure remains controlled with PRN hydralazine. 7. History of throat cancer: Nutritional support with liquid diet and multivitamins ongoing. Code Status: Full code DVT Prophylaxis: Apixaban Prognosis: Guarded Boby Pelletier MD Internal Medicine Resident, PGY-1 Date of Service: Aug 19, 2024 Billing Provider: SIGIFREDO ROSALES MD, GAURAV, RES Aug 19, 2024 11:40
--- NOTE | 2024-08-19 12:44 | RADIOLOGY REPORT ---
CHEST RADIOGRAPH Indication: sob, tachypnea Technique: Single frontal view of the chest was obtained COMPARISON: 08/13/2024 FINDINGS: The cardiac silhouette is enlarged. The lungs demonstrate bilateral patchy airspace opacities, increa sed from prior. Biapical pleural thickening / effusions. The pulmonary vasculature is prominent. Sma ll to moderate left and small right pleural effusions, increased from prior. There is no pneumothorax . IMPRESSION: 1. As above
[2024-08-19] MEDS ORDERED: iohexol 300mg/ml 100ml inj. ONE (14:59)
--- NOTE | 2024-08-19 20:36 | PROGRESS NOTE- Residence ---
Progress Note - Resident Providers to CC Resident Creating Document: DELBERT RAHMAN RES ~ Antibiotic Timeout Antibiotic Ordered?: Yes Subjective Patient seen and examined today. Patient's heart rate is going up to 140. Patient does not want to take the oral medications because he is feeling he has a with dysphagia and odynophagia Objective Vital Signs Date Time Temp Pulse Resp B/P (MAP) Pulse Ox O2 Delivery O2 Flow Rate FiO2 08/19/24 18:36 130 126/45 08/19/24 18:00 97.6 14 97 Nasal Cannula 2.0 Result Diagram: 08/19/24 0708 08/19/24 0708 General: Well alert, well oriented, not confused, not agitated, not in acute distress, well cooperated during the physical. HEENT: Conjunctive are pink, sclerae clear, no icterus, pupil is equal in both sides, reactive to light, no ear discharge, no pharyngeal erythema or an edema, mouth and lips are moist. Neck: Supple, no JVD, no lymphadenopathy and thyromegaly. 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, no motor and sensory weakness in all 4 extremities, could move all 4 extremities Musculoskeletal: No joint swelling, deformities, inflammations, and no scoliosis and back tenderness Skin: No active skin lesions and rashes Coagulation Studies Laboratory Tests Test 08/13/24 16:27 08/15/24 11:33 Prothrombin Time 11.0 SECONDS (9.0-12.0) INR International Normalized Ratio 1.1 INR Activated Partial Thromboplast Time 28 SECONDS (22-32) APTT (Heparin Protocol) 54 SECONDS (45-60) Coagulation Comments Advance Care Planning Advanced Care plannin - 30 Minutes Assessment Assessment An 78 years old male with chronic AFib with RVR on non anticoagulation, throat cancer s/p radical surgery and XRT. s/p tonsillectomy or hernia repair surgery, and FHx of cancer in brother with prostate and lung cancer, sister had thyroid and stomach cancer presented with the acute right flank pain radiated downward to his groin and genital area. Plan Plan An 78 years old male with chronic AFib with RVR on non anticoagulation, throat cancer s/p radical surgery and XRT. s/p tonsillectomy or hernia repair surgery, and FHx of cancer in brother with prostate and lung cancer, sister had thyroid and stomach cancer presented with the acute right flank pain radiated downward to his groin and genital area. Plan Plan # dysphagia and food residual regurgitation 08/17/2024: Patient agrees to have ST eval this time, he underwent ST eval which recommended for GI/ENT recommendation/consultation for full residual regurgitation and could not swallow the food because of the stenosis from post surgical resection and XRT. -GI, Dr Colorado was requested for the consultation, plans to do EGD with a possible plan of esophageal dilatation if it is allows and feasible. Otherwise, needs the PEG feeding tube. On 08/18/2024: EGD done which showed large bulky nodular and friable mass in the posterior following suspicion for recurrent malignancy, eosinophilic esophagitis, friable eroded mucosa in the stomach and nonbleeding duodenal ulcers. Multiple biopsies taken. Patient is encouraged to have full liquid diet. Increase Protonix to 40 mg IV b.i.d.. Recommended stat ENT consultation. Follow up with the pathology reports -on ciprofloxacin and metronidazole. Elevated WBCs On 08/19/[address] neck after discussing with radiologist. We will follow up with the results to evaluate pharyngeal mass. Patient may need ENT consultation. Patient is on NPO. Continue ciprofloxacin and metronidazole. Ordered NG tube and patient needs to get the medications through NG tube. # T2MI 08/19/2024:. Continue aspirin through NG tube 08/18/2024: On aspirin 81 mg p.o. daily. Hold Eliquis for EGD today. Holding Eliquis for possible PEG tube placement. Will consult GI tomorrow about questionable PEG tube placement 08/17/2024: Completed heparin IV 48 hours, on aspirin and Eliquis, continue medical therapy 08/16/2024: continue medical management. Stop heparin after 48 hours 08/15/2024: Continue mainly medical management which was recommended by the Cardiology including IV heparin for 48 hours, DAPT, statin, metoprolol. -2D echocardiogram showed mildly reduced function of LV with mild concentric hypertrophy, LVEF 45-50%, severely dilated RV with mildly reduced function, RVSP 43 mm Hg, moderately dilated LA, severely dilated RA, mild MR, TR, normal pericardium and no effusion. -Cardiology is on board 08/14/2024:-patient is currently on IV heparin and continue it -possibly secondary from AFib with RVR and a uncontrolled hypertension. -consulted with Dr Yoo cardiology and appreciate it, who recommended for continuing home metoprolol 50 mg b.i.d., continue atorvastatin 40 mg daily with goal of LDL <55, anticoagulation was limited for his throat cancer history. # Acute abd pain from Constipation 08/18/2024: Is having bowel movements. Is on full liquid diet 08/17/2024: Is having bowel movement mostly liquidy as the patient is on the liquid diet. 08/16/2024: Patient had loose bowel motion which is liquidy as the patient is mainly on the full liquid diet. continue only Miralax as needed for now and trending up Cr 08/15/2024: Patient had bowel movements today, downgraded laxatives because of his in climbing creatinine level. 08/14/2024:-mineral oil prn -continue p.o. lactulose 30 mL b.i.d., p.o. MiraLax 17 g every HS, docusate 100 mg b.i.d. -we will consider soap enema if he wound have any bowel movement after those measures -control the pain with acetaminophen as much as possible to avoid unnecessary constipation from opiates -continue IV ciprofloxacin Day 2 # A fib w/ RVR on no anticoagulation 08/19/2024: Bumped up the dose of Cardizem to 7.5 initially and then to 10. Patient may need amiodarone in the night. Consult Cardiology if it is uncontrolled for cardioversion 08/18/2024: Patient's heart rate went up to 140s. Given one dose of Cardizem 20 mg IV push. Heart rate remained in 110s to 120s. Given another dose of Cardizem 25 mg IV push about 2 hours later. Now, heart rate remained less than 110/minute. If needed, will start Cardizem drip. LVEF 40-45%. 08/17/2024: Given one time dose of IV labetalol 5 mg, and another one time dose of IV labetalol 10 mg for RVR, patient needs to be on maintenance metoprolol 50 mg b.i.d. at least. 08/16/2024: Heart rate control around 90s, continue current metoprolol 100 mg b.i.d., we will need to discharge on metoprolol 50 mg b.i.d. 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 08/18/2024: Creatinine went up to 4.01 from 2.46- could be due to volume depletion from not being able to eat or drink and has been NPO since midnight for EGD today. Persistent oliguria- urine output less than 0.5 mL/kg/hour. Urine lytes ordered. Will consult Nephrology tomorrow in a.m. if creatinine remains high or trends up. Worsening metabolic acidosis. Increase normal saline 100 cc/hour. Taper fluids tomorrow 08/17/2024: Not much difference in creatinine, continue monitoring including I's and O's 08/16/2024: Creatinine 2.68, gradually trending down from yesterday. Continue IV normal saline 0.9% 70 mL/hr. 08/15/2024:-creatinine is trending up to 2.75 today, downgrading the laxatives usage and optimize the fluid and continue IV normal saline 0.9% 70 ml/ hours. # hypertension -blood pressure is currently controlled, around 110/70 -continue IV hydralazine 10 mg PRN -patient is currently on the tamsulosin for his possible diagnosis of kidney stone/BPH # history of throat cancer -s/p radical resection surgery and XRT 25 years ago -currently on liquid diet only for two years now. -started and continue liquid centrum with multivitamins. CODE STATUS: Full code DVT prophylaxis: IV heparin for 48 hours and switch to SCDs Analgesia/sedation: Acetaminophen, IV morphine as needed Lines/tubes: Peripheral IV GI prophylaxis: None Nutrition: Liquid diet Prognosis: Guarded Disposition: Discuss with GI for possible PEG tube Delbert Rahman MD Internal Medicine Resident, PGY 1 Date of Service: Aug 19, 2024 Billing Provider: AYAAN GREY MD Common Visit Codes: [id number] INP/OBS CARE(HIGH) DELBERT RAHMAN, RES Aug 19, 2024 20:36 AYAAN GREY MD Aug 29, 2024 08:02
--- NOTE | 2024-08-19 20:38 | PROGRESS NOTE ---
Daily Progress Note Providers to CC ~ Antibiotic Timeout Antibiotic Ordered?: No Subjective denies any pain Objective Vital Signs Date Time Temp Pulse Resp B/P (MAP) Pulse Ox O2 Delivery O2 Flow Rate FiO2 08/19/24 20:00 139 08/19/24 18:36 126/45 08/19/24 18:00 97.6 14 97 Nasal Cannula 2.0 Result Diagram: 08/19/24 0708 08/19/24 0708 General: Normal body habitus, no acute distress. Skin: No rashes, lumps, ulcers, blisters, purpura or petechiae; no nail abnormalities. HEENT: Sclerae clear, PERRL, normal hearing, gums without lesions or bleeding, Neck: Supple without enlargement of the thyroid, or lymphadenopathy. Chest: Normal size and shape, no tenderness, lung regalado clear to auscultation and percussion, nonlabored breathing. Heart: No jugular venous distention, irregularly irregular Abdomen: Soft nontender bowel sounds are present Extremities : +2 pulses no edema Neuro: Alert oriented Coagulation Studies Laboratory Tests Test 08/13/24 16:27 08/15/24 11:33 Prothrombin Time 11.0 SECONDS (9.0-12.0) INR International Normalized Ratio 1.1 INR Activated Partial Thromboplast Time 28 SECONDS (22-32) APTT (Heparin Protocol) 54 SECONDS (45-60) Coagulation Comments Problem\Assessment\Plan pt with long standing dysphagia, had egd, findings of pharyngeal mass; bx taken; concern for poss airway involvement, no stridor; not able to do ct with iv contrast due to michael; will require gtube; ct neck noncontrast recurrent pharyngeal ca, awaiting bx, will need oncology referral michael, unclear etiol, nephro following, creatinine worsening, ivf, no urine eosinophils PAF on cardizem drip due to inability to take oral intake PT Date of Service: Aug 19, 2024 Billing Provider: AYAAN GREY MD Common Visit Codes: [id number] INP/OBS CARE(HIGH) AYAAN GREY MD Aug 19, 2024 20:38
[2024-08-19] MEDS: amiodarone 150mg/dext, iso-os 100 ML IV ONE (20:55)
[2024-08-19 21:04] LABS: THYROID STIMULATING HORMONE 1.07 ulU/ml (0.34-4.50)
[2024-08-19] MEDS: amiodarone/D5 360MG/200ML BAG 200 ML IV SCH (21:10)
--- NOTE | 2024-08-19 21:37 | RADIOLOGY REPORT ---
EXAM: CT CT NECK SOFT TISSUES INDICATION: Nodular mass in pharynx Exam Date: 08/19/2024 07:58 PM COMPARISON: None TECHNIQUE: CT of the neck with intravenous contrast. RADIATION DOSE: CTDIvol: mGy, DLP: mGy*cm CONTRAST: Type of contrast: Contrast injected: ml Contrast ingested: ml FINDINGS: You need help There is no evidence of neck mass, pathologically enlarged lymph nodes, or fluid collection. Mild muc osal irregularities are noted in the oropharynx, entirely nonspecific and cannot be further character ized on this study. Airway and larynx are unremarkable. Fat planes of the neck appear intact. Fatty replacement of the parotid glands. Submandibular glands not visualized. Thyroid gland not inclu ded in the study. Visualized portions of the brain are unremarkable. Osseous structures are unremark able. IMPRESSION: No evidence of cervical mass lesion, pathologically enlarged lymph nodes or fluid collection. Mild mu cosal irregularities noted in the oropharynx, entirely nonspecific and cannot be further characteriz ed on this study. Endoscopy suggested.
[2024-08-20] VITALS (30 sets, daily range): BP systolic 106–152; BP diastolic 69–97; PULSE 108–140; RESP 14–29; TEMP 97–97.6; O2SAT 94–97
[2024-08-20 07:56] LABS: BASOPHILS % (AUTO) 0.1 % (0-1); EOSINOPHILS % (AUTO) 0.1 % (0-6); HEMATOCRIT 45.8 % (42.0-52.0); HEMOGLOBIN 15.1 g/dl (14.0-17.9); LYMPHOCYTES # (AUTO) 0.4 X10'3 (1.1-4.8); LYMPHOCYTES % (AUTO) 2.3 % (21-51); MEAN CORPUSCULAR HEMOGLOBIN 27.5 PG (27.0-31.0); MEAN CORPUSCULAR HGB CONC 32.9 g/dL (33.0-36.5); MEAN CORPUSCULAR VOLUME 83.7 FL (78-98); MEAN PLATELET VOLUME 8.8 FL (7.4-10.4); MONOCYTES # (AUTO) 2.2 X10'3 (0-0.9); MONOCYTES % (AUTO) 12.2 % (2-12); NEUTROPHILS # (AUTO) 15.1 X10'3 (1.8-7.7); NEUTROPHILS % (AUTO) 85.3 % (42-75); PLATELET COUNT 205 X10'3 (140-440); RED BLOOD COUNT 5.47 X10'6 (4.70-6.10); RED CELL DISTRIBUTION WIDTH 16.9 % (11.5-14.5); WHITE BLOOD COUNT 17.7 X10'3 (4.5-11.0)
[2024-08-20 08:11] LABS: ALANINE AMINOTRANSFERASE 25 U/L (12-78); ALBUMIN 2.5 G/DL (3.4-5.0); ALBUMIN/GLOBULIN RATIO 0.6 (1.1-1.5); ALKALINE PHOSPHATASE 126 IU/L (46-116); ANION GAP 20 (8-16); ASPARTATE AMINO TRANSFERASE 29 U/L (10-37); BLOOD UREA NITROGEN 78 MG/DL (7-18); BUN/CREATININE RATIO 16.1 (10.0-20.0); CALCIUM 8.2 MG/DL (8.5-10.1); CHLORIDE 105 MMOL/L (99-107); CREATININE 4.84 MG/DL (0.60-1.10); GLUCOSE 124 MG/DL (70-104); MAGNESIUM 2.1 MG/DL (1.5-2.4); POTASSIUM 3.7 MMOL/L (3.5-5.1); SODIUM 140 MMOL/L (135-145); eCRCL 13 ML/MIN; eGFR 12 ML/MIN
--- NOTE | 2024-08-20 10:35 | PROGRESS NOTE- Residence ---
Progress Note - Resident Providers to CC Resident Creating Document: BOBY PELLETIER RES ~ Antibiotic Timeout Antibiotic Ordered?: No Subjective Patient seen and examined today. No acute overnight symptoms. Plan for PEG tube placement. Objective Vital Signs Date Time Temp Pulse Resp B/P (MAP) Pulse Ox O2 Delivery O2 Flow Rate FiO2 08/20/24 07:00 97.2 130 16 149/92 (111) 97 Room Air 08/19/24 22:00 2.0 Result Diagram: 08/20/24 0706 08/20/24 0706 Awake , alert, and oriented x4, resting comfortably in the bed, in no acute distress HEENT: Atraumatic, normocephalic, EOMI, anicteric sclera ; pink conjunctiva Neck: Trachea midline. Supple, full range of motion, no JVD Cardiac: Irregular rhythm, irregular rate with no murmurs all over the precordium. Respiratory: Equal breath sounds bilaterally, no tachypnea, no wheezing ,rub or rales, Chest wall is symmetric and without deformity. Gastrointestinal: Abdomen symmetric, non-distended, soft, slight tenderness at the right and left flank, normal bowel sounds x4 quadrant, normoactive, no hepatosplenomegaly Musculoskeletal: No pedal edema, no cyanosis Neurological: Speech is clear, alert, and oriented x 4. No motor or sensory deficit, deep tendon reflexes normal, cerebellar intact. Cranial nerves II-XII intact. Skin: Warm and dry Coagulation Studies Laboratory Tests Test 08/13/24 16:27 08/15/24 11:33 Prothrombin Time 11.0 SECONDS (9.0-12.0) INR International Normalized Ratio 1.1 INR Activated Partial Thromboplast Time 28 SECONDS (22-32) APTT (Heparin Protocol) 54 SECONDS (45-60) Coagulation Comments Advance Care Planning Advanced Care plannin - 30 Minutes Assessment Assessment An 78 years old male with chronic AFib with RVR on non anticoagulation, throat cancer s/p radical surgery and XRT. s/p tonsillectomy or hernia repair surgery, and FHx of cancer in brother with prostate and lung cancer, sister had thyroid and stomach cancer presented with the acute right flank pain radiated downward to his groin and genital area. Plan Plan 1. Dysphagia with residual food regurgitation: S/P EGD on 08/18/24 Nodular Mass in posterior pharynx, suspicious for malignancy Eosinophilic esophagitis- middle third of the esophagus Multiple non-bleeding cratered duodenal ulcers EGD on 08/18/24 showed: A large, bulky, exophytic, nodular, friable, and highly vascular mass was identified in the posterior pharynx, suspicious for malignancy. The mass poses a significant risk of airway obstruction and complete obstruction in the piriform fossa, contributing to absolute dysphagia. Mucosal changes suggestive of eosinophilic esophagitis were observed in the middle third of the esophagus. Findings included a ringed esophagus, graded as Grade 2 Moderate on the Eosinophilic Esophagitis Endoscopic Reference Score (EoE-EREFS): distinct rings that do not occlude passage of an 8-10 mm endoscope. Severe diffuse mucosal changes throughout the entire examined stomach characterized by congestion, erythema, friability (with contact bleeding), granularity, and linear erosions. Multiple non-bleeding cratered duodenal ulcers with pigmented material were identified in the duodenal bulb and second portion of the duodenum. Continue diet as tolerated. Continue Protonix (pantoprazole) to 40 mg IV b.i.d. to promote healing of peptic ulcer disease (PUD). Urgent ENT consultation for evaluation and management of the posterior pharyngeal mass and impending airway obstruction. Consider placement of a percutaneous endoscopic gastrostomy (PEG) tube for nutritional support after adequate healing of PUD with proton pump inhibitor therapy, given the anticipated absolute dysphagia. Await pathology results from all biopsies to determine the nature of the pharyngeal mass, gastric changes, and eosinophilic esophagitis. Follow up with the primary care physician and gastroenterology for management based on biopsy results. 08/20/24: Continue Protonix 40 mg IV b.i.d. for 2 more days for proper healing of his peptic ulcer disease Plan for PEG tube placement tomorrow. Patient will need stat outpatient follow up with the ENT 2. Acute abdominal pain from severe constipation: Symptoms now improving with bowel movements. Adjust laxatives as needed (Miralax PRN) to balance efficacy with renal function. Maintain hydration with IV normal saline at 70 mL/hr. Monitor for recurrence of constipation or bloating. 3. Type 2 myocardial infarction (T2MI): Completed IV heparin; transitioned to renal-dose apixaban (2.5 mg BID). Continue aspirin, atorvastatin 40 mg daily, and metoprolol 50 mg BID. 4. Chronic AFib with RVR: Rate well-control per Hospitalist team, currently on Diltiazem drip Continue apixaban for stroke prophylaxis. 5. Acute kidney injury (KIARA) from tubular stasis: Creatinine trending up, consider Nephrology consultation 6. Hypertension: Blood pressure remains controlled 7. History of throat cancer: Nutritional support with liquid diet and multivitamins ongoing. Code Status: Full code DVT Prophylaxis: Apixaban Prognosis: Guarded Boby Pelletier MD Internal Medicine Resident, PGY-1 Date of Service: Aug 20, 2024 Billing Provider: BOBY SEYMOUR, RES Aug 20, 2024 10:35
[2024-08-20] MEDS ORDERED: sodium bicarbonate 1meq/ml inj 150 ML in sodium chloride 0.45% 1,000 ML IV SCH (11:10)
[2024-08-20] MEDS: sodium bicarbonate 1meq/ml inj 150 ML in dextrose 5%-water 1,000 ML IV SCH (12:12)
[2024-08-20] MEDS: diltiazem-NS 100mg/100ml 100 ML IV SCH ×2 (14:02→17:20)
--- NOTE | 2024-08-20 14:29 | PROGRESS NOTE- Residence ---
Progress Note - Resident Providers to CC Resident Creating Document: SAMEER GONZALEZ, RES ~ Antibiotic Timeout Antibiotic Ordered?: Yes Subjective The patient has been evaluated at bedside. The patient currently denies any symptoms. Objective Vital Signs Date Time Temp Pulse Resp B/P (MAP) Pulse Ox O2 Delivery O2 Flow Rate FiO2 08/20/24 13:00 125 144/93 (110) 08/20/24 11:15 97.1 24 97 Nasal Cannula 2.0 Physical exam: General: Well alert, well oriented, not confused, not agitated, not in acute distress, well cooperated during the physical. HEENT: Conjunctive are pink, sclerae clear, no icterus, pupil is equal in both sides, reactive to light, no ear discharge, no pharyngeal erythema or an edema. Neck: Supple, no JVD, no lymphadenopathy and thyromegaly. Chest: Equal air entry on both lungs, no additional sounds no rhonchi no wheezing at the moment. Cardiovascular: S1-S2 regular sinus rhythm and, regular rate, no gallops, no rubs, no murmurs Abdomen: No visible peristalsis, Bowel sounds present on auscultation, soft, nontender, no guarding, no rigidity Extremities: No obvious deformities, no pitting edema bilaterally, capillary refill intact, peripheral pulsations are intact on both sides Central Nervous System: No focal neurological deficits, no motor or sensory weakness in all 4 extremities, could move all 4 extremities, 2+ deep tendon reflexes, negative Babinski. Musculoskeletal: No joint swelling, deformities, inflammations, and no scoliosis and back tenderness Skin: Warm and dry. Result Diagram: 08/20/24 0706 08/20/24 0706 Coagulation Studies Laboratory Tests Test 08/13/24 16:27 08/15/24 11:33 Prothrombin Time 11.0 SECONDS (9.0-12.0) INR International Normalized Ratio 1.1 INR Activated Partial Thromboplast Time 28 SECONDS (22-32) APTT (Heparin Protocol) 54 SECONDS (45-60) Coagulation Comments Assessment Assessment An 78 years old male with chronic AFib with RVR on non anticoagulation, throat cancer s/p radical surgery and XRT. s/p tonsillectomy or hernia repair surgery, and FHx of cancer in brother with prostate and lung cancer, sister had thyroid and stomach cancer presented with the acute right flank pain radiated downward to his groin and genital area. Plan Plan Dysphagia and food residual regurgitation 08/17/2024: Patient agrees to have ST eval this time, he underwent ST eval which recommended for GI/ENT recommendation/consultation for full residual regurgitation and could not swallow the food because of the stenosis from post surgical resection and XRT. -GI, Dr Colorado was requested for the consultation, plans to do EGD with a possible plan of esophageal dilatation if it is allows and feasible. Otherwise, needs the PEG feeding tube. On 08/18/2024: EGD done which showed large bulky nodular and friable mass in the posterior following suspicion for recurrent malignancy, eosinophilic esophagitis, friable eroded mucosa in the stomach and nonbleeding duodenal ulcers. Multiple biopsies taken. Patient is encouraged to have full liquid diet. Increase Protonix to 40 mg IV b.i.d.. Recommended stat ENT consultation. Follow up with the pathology reports -on ciprofloxacin and metronidazole. Elevated WBCs On 08/19/2024: Ordered CT neck after discussing with radiologist. We will follow up with the results to evaluate pharyngeal mass. Patient may need ENT consultation. Patient is on NPO. Continue ciprofloxacin and metronidazole. Ordered NG tube and patient needs to get the medications through NG tube. On 08/20/2024: Neck CT scan no evidence of cervical mass lesion, pathologically enlarged lymph nodes or fluid collection. Mild mucosal irregularities noted in the oropharynx, entirely nonspecific and can not be further characterized on this study. The patient requires CT scan with contrast unfortunately we can not obtain due to kidney function. GI Dr. Colorado we will perform PEG tube placement tomorrow. Type 2MI 08/14/2024:-patient is currently on IV heparin and continue it -possibly secondary from AFib with RVR and a uncontrolled hypertension. -consulted with Dr Yoo cardiology and appreciate it, who recommended for continuing home metoprolol 50 mg b.i.d., continue atorvastatin 40 mg daily with goal of LDL <55, anticoagulation was limited for his throat cancer history. 08/15/2024: Continue mainly medical management which was recommended by the Cardiology including IV heparin for 48 hours, DAPT, statin, metoprolol. -2D echocardiogram showed mildly reduced function of LV with mild concentric hypertrophy, LVEF 45-50%, severely dilated RV with mildly reduced function, RVSP 43 mm Hg, moderately dilated LA, severely dilated RA, mild MR, TR, normal pericardium and no effusion. -Cardiology is on board 08/16/2024: Continue medical management. Stop heparin after 48 hours 08/17/2024: Completed heparin IV 48 hours, on aspirin and Eliquis, continue medical therapy 08/18/2024: On aspirin 81 mg p.o. daily. Hold Eliquis for EGD today. Holding Eliquis for possible PEG tube placement. Will consult GI tomorrow about questionable PEG tube placement 08/19/2024: Continue aspirin through NG tube. 08/20/2024: Continue aspirin through NG tube. Acute abd pain from Constipation 08/14/2024:-mineral oil prn -continue p.o. lactulose 30 mL b.i.d., p.o. MiraLax 17 g every HS, docusate 100 mg b.i.d. -we will consider soap enema if he wound have any bowel movement after those measures -control the pain with acetaminophen as much as possible to avoid unnecessary constipation from opiates -continue IV ciprofloxacin Day 2 08/15/2024: Patient had bowel movements today, downgraded laxatives because of his in climbing creatinine level. 08/16/2024: Patient had loose bowel motion which is liquidy as the patient is mainly on the full liquid diet. continue only Miralax as needed for now and trending up Cr 08/17/2024: Is having bowel movement mostly liquidy as the patient is on the liquid diet. 08/18/2024: Is having bowel movements. Is on full liquid diet 08/20/2024: Last bowel movement on 08/17/2024. The patient will undergo PEG tube placement tomorrow or day after. Currently on full liquid diet. A fib w/ RVR no on anticoagulation: 08/14/2024:-was given IV diltiazem drip, cardiology recommended for titrating up current metoprolol as needed for rate control -currently maintaining heart rate around 90s 08/15/2024: Heart rate is not controlled well today, continue metoprolol 100 mg BID for better Afib control not on anticoag because of his throat cancer surgery PMH 08/16/2024: Heart rate control around 90s, continue current metoprolol 100 mg b.i.d., we will need to discharge on metoprolol 50 mg b.i.d. as his blood pressure is on soft side 08/17/2024: Given one time dose of IV labetalol 5 mg, and another one time dose of IV labetalol 10 mg for RVR, patient needs to be on maintenance metoprolol 50 mg b.i.d. at least. 08/18/2024: Patient's heart rate went up to 140s. Given one dose of Cardizem 20 mg IV push. Heart rate remained in 110s to 120s. Given another dose of Cardizem 25 mg IV push about 2 hours later. Now, heart rate remained less than 110/minute. If needed, will start Cardizem drip. LVEF 40-45%. 08/19/2024: Bumped up the dose of Cardizem to 7.5 initially and then to 10. Patient may need amiodarone in the night. Consult Cardiology if it is uncontrolled for cardioversion 08/20/2024: Increased dose of Cardizem drip to 20 mg/hour. Consult Cardiology if it is uncontrolled for cardioversion. KIARA on CKD stage IV -likely prerenal Vasomotor nephropathy Metabolic acidosis: 08/15/2024:-creatinine is trending up to 2.75 today, downgrading the laxatives usage and optimize the fluid and continue IV normal saline 0.9% 70 ml/ hours. 08/16/2024: Creatinine 2.68, gradually trending down from yesterday. Continue IV normal saline 0.9% 70 mL/hr. 08/17/2024: Not much difference in creatinine, continue monitoring including I's and O's 08/18/2024: Creatinine went up to 4.01 from 2.46- could be due to volume depletion from not being able to eat or drink and has been NPO since midnight for EGD today. Persistent oliguria- urine output less than 0.5 mL/kg/hour. Urine lytes ordered. Will consult Nephrology tomorrow in a.m. if creatinine remains high or trends up. Worsening metabolic acidosis. Increase normal saline 100 cc/hour. Taper fluids tomorrow 08/19/2024: Creatinine went up to more than four and it is on the wrong direction. 08/20/2024: Bicarb levels 15, creatinine trending up, bicarb drip with three ampules of bicarbonate started. Hypertension -blood pressure is currently controlled, around 110/70 -continue IV hydralazine 10 mg PRN -patient is currently on the tamsulosin for his possible diagnosis of kidney stone/BPH History of throat cancer -s/p radical resection surgery and XRT 25 years ago -currently on liquid diet only for two years now. -started and continue liquid centrum with multivitamins. Code status: Full code DVT prophylaxis: SCDs Analgesia/sedation: Acetaminophen and IV morphine as needed. Line/tube: PIV GI prophylaxis: Protonix 40 mg IV b.i.d. Nutrition: Liquid diet. PT: Recommended post-acute care. Prognosis: Guarded. Disposition: Pending PEG tube placement by GI. Nephrology was consulted, awaiting recommendations. Sameer Zhao Internal Medicine Resident [facility] Date of Service: Aug 20, 2024 Billing Provider: AYAAN GREY MD Common Visit Codes: [id number] INP/OBS CARE(HIGH) SAMEER GONZALEZ, RES Aug 20, 2024 14:29 AYAAN GREY MD Aug 20, 2024 21:08
--- NOTE | 2024-08-20 14:50 | RADIOLOGY REPORT ---
EXAM: DI CHEST,SINGLE VIEW Indication: sob Technique: Single frontal view of the chest was obtained Comparison: DI CHEST,SINGLE VIEW on DOS: 08/19/24, DI CHEST,SINGLE VIEW on DOS: 08/13/24 FINDINGS: Lines and Tubes: None Lungs: Trace bilateral pleural effusion. Pulmonary edema. Pleura: No effusion. No pneumothorax. Cardiomediastinal contours: Cardiomegaly. Atherosclerotic vascular calcifications of the thoracic aor ta are noted. Bones: No acute osseous abnormality. IMPRESSION: Trace bilateral pleural effusions. Pulmonary edema. Bibasilar opacities.
--- NOTE | 2024-08-20 16:10 | CONSULTATION REPORT - RESIDENT ---
Consult Providers to CC Resident Creating Document: JONATHAN BLANKENSHIP JESSE History of Present Illness Reason for Admit\Complaint: Dysphagia History of Present Illness The 78-year-old male with a past medical history of throat cancer-s/p surgery and radiation about 25 years back, starting atrial fibrillation, hypertension presented to the ER on 08/13/2024 with a chief complaint of right flank pain. Abdomen/pelvis CT did not show any significant findings. He also complained of several weeks of dysphagia. So, an EGD was done on 08/18/2024 which showed relapsed throat cancer. Not to eat or drink anything. Now, he denies drinking or eating anything. Feels weak. Denies any nausea, vomiting, abdominal pain, flank pain, diarrhea. Usually walks by himself. Has wet cough but that is due to obstruction of secretions to pass down the throat. Denies any fever, chills. Is on Cardizem drip for AFib with RVR. Denies using excessive NSAIDs. No exposure to IV contrast recently. He came in with a creatinine of 2.48 on 08/13/2024 and now it is 4.84. We do not have much of previous records apart from one in 2021-creatinine 1.31. He likely has underlying CKD but unknown creatinine baseline. Denies any difficulty passing urine or dysuria blood in urine. Allergies: Coded Allergies: Penicillins (Verified Adverse Reaction, Unknown, RASH, 08/13/24) Home Medications Home Medications Active Centrum Multivit-Mineral Liq (Multivits W-Min/Ferrous Gluc) 9 Mg Iron/15 Ml Liquid 15 Ml PO DAILY 30 Days Atorvastatin Calcium 20 Mg Tablet 40 Mg PO DAILY 30 Days Eliquis (Apixaban) 2.5 Mg Tablet 2.5 Mg PO BID 30 Days Ciprofloxacin HCl (Ciprofloxacin) 500 Mg Tab 1 Tab PO Q12H 5 Days Reported Flomax* (Tamsulosin HCl) 0.4 Mg Cap.sr.24h 0.4 Mg PO DAILY Metoprolol Tartrate 50 Mg Tablet 1 Tab PO BID Past Medical History Past Medical History Throat cancer-S/P surgery and radiation therapy about 25 years back, abdominal pain, constipation, AFib with RVR, hypertension Past Surgical History Surgical History Comment Surgical resection of throat cancer, right inguinal hernia repair Past Social History Social History Comment Denies smoking tobacco. Has been a social alcoholic drinker. Denied abusing any other recreational drugs. Lives by himself. Denies having any family in [place] ROS ROS Constitutional: Weakness present. No fever, chills, dizziness,weight gain or loss Eyes: No pain, erythema, discharge, blurring of vision ENT: No sore throat, epistaxis, tinnitus Cardiovascular: No chest pain, chest pressure, chest discomfort, palpitations, syncope, lower extremity edema, paroxysmal nocturnal dyspnea Respiratory: No shortness of breath, cough, hemoptysis Gastrointestinal: Dysphagia present. Normal appetite. No nausea, vomiting, diarrhea, constipation, hematemesis, abdominal pain, bloating, melena or fresh blood Genitourinary: No frequency, urgency, nocturia, hematuria or dysuria Musculoskeletal: No arthralgias or myalgias Integumentary: No change in skin, hair, nails. No swelling, bruising, abrasions Neurologic: No headache, neck pain, numbness or tingling of the extremities, weakness Psychiatric: No delusions, depression, loss of interest in normal activity or change in sleep pattern, hallucinations, suicidal ideations Endocrine: No fatigue, weakness, polydipsia, polyuria, change in appetite, heat or cold intolerance, sweating, dry skin Hematological: No bleeding, petechiae, bruising Allergies: No asthma or urticaria Exam Vitals: Vital Signs Date Time Temp Pulse Resp B/P (MAP) Pulse Ox O2 Delivery O2 Flow Rate FiO2 08/20/24 14:02 127 147/89 08/20/24 11:15 97.1 24 97 Nasal Cannula 2.0 General: Alert and oriented x4 HEENT: Normocephalic and atraumatic. Pupils equal round reactive to light and accommodation. Extraocular movements intact. Oral and nasal mucosa moist Neck: Trachea is in midline. Full range of motion Chest: Bilateral normal breath sounds. No crackles, rhonchi or wheezes Cardiovascular: Is regular rhythm. Regular rate. No rubs or murmurs Abdomen: Soft, mildly distended. Nontender. Normoactive bowel sounds Extremities: No cyanosis, clubbing or edema Central Nervous System: No gross sensory or motor deficits. CN II to XII intact Skin: Warm and dry Diagnostic Data Last Recorded Lab Results: 08/20/24 0706 08/20/24 0706 Diagnostic Data: Laboratory Tests Test 08/13/24 16:27 08/15/24 11:33 Prothrombin Time 11.0 SECONDS (9.0-12.0) INR International Normalized Ratio 1.1 INR Activated Partial Thromboplast Time 28 SECONDS (22-32) APTT (Heparin Protocol) 54 SECONDS (45-60) Coagulation Comments Additional Plan Acute kidney injury on possible CKD-unknown stage and baseline Oliguria-improving Metabolic acidosis with elevated anion gap Likely due to intravascular volume depletion secondary to no intake of solid food or liquids He is to normal saline to 150 cc/hour on 08/18/2024 after a bump in creatinine from 2.46 to 4.01 Urine output improved but creatinine continue to trend up Possibly must have developed ATN Repeat urinalysis, urine sodium, potassium, creatinine, urine eosinophils and osmolality ordered Strict I&Os recommended Metabolic acidosis worsening. Today, bicarb 15 Primary team started bicarb - 3 amp in D5 water. Agree with the plan. Monitor sodium level. Today, 140 Dysphagia with residual food regurgitation: S/P EGD on 08/18/24 Nodular Mass in posterior pharynx, suspicious for malignancy Eosinophilic esophagitis- middle third of the esophagus Multiple non-bleeding cratered duodenal ulcers EGD on 08/18/24 showed: -A large, bulky, exophytic, nodular, friable, and highly vascular mass was identified in the posterior pharynx, suspicious for malignancy. -The mass poses a significant risk of airway obstruction and complete obstruction in the piriform fossa, contributing to absolute dysphagia. -recommended stat ENT consultation -Protonix 40 mg IV b.i.d. Follow up with the biopsy reports Looks like there is a plan to place PEG tube by the GI Eliquis on hold for surgical procedures White count remains high. On ciprofloxacin 200 mg IV q.12h and metronidazole 500 mg IV q.8h Atrial fibrillation with RVR On Cardizem drip at 15 mg/hour Patient not able to take any oral pills Anticoagulation on hold due to possible PEG tube placement Hypertension Patient not able to tolerate oral medications On IV hydralazine 10 mg q.6h p.r.n. with holding parameters DVT prophylaxis: Recommend SCDs till anticoagulation is started Jonathan Blankenship MD Internal Medicine Resident, PGY 2 Date of Service: Aug 20, 2024 Billing Provider: MEGHAN WOMACK III, MANOJNA RES Aug 20, 2024 16:10
[2024-08-20 17:35] LABS: BILIRUBIN,URINE NEGATIVE (Neg); CLARITY,URINE CLEAR (Clear); COLOR,URINE YELLOW (Yellow); GLUCOSE, URINE 500 mg/dl (Neg); KETONES,URINE TRACE mg/dl (Neg); LEUKOCYTE ESTERASE ,URINE NEGATIVE (Neg); NITRITES, URINE NEGATIVE (Neg); OCCULT BLOOD,URINE MODERATE (Neg); PH,URINE 5.5 (4.8-8.0); PROTEIN,URINE TRACE mg/dl (Neg); UROBILINOGEN,URINE 0.2 E.U/dL (0.2-1.0)
[2024-08-20 17:53] LABS: UA COLLECTION TYPE VOIDED
[2024-08-20 17:57] LABS: BACTERIA,URINE FEW /HPF (Neg); SQUAMOUS EPITHELIAL CELL,UR FEW /LPF (FEW)
[2024-08-20 18:30] LABS: UA EOSINOPHILS NO EOS /HPF
[2024-08-20] MEDS: metoprolol tartrate 1mg/ml inj IV SCH (20:47)
[2024-08-20] MEDS: furosemide 40mg/4ml inj IV SCH (21:05)
--- NOTE | 2024-08-20 23:43 | RADIOLOGY REPORT ---
EXAM: US ULTRASOUND KIDNEY NON VASC HISTORY: michael on ckd possible obstruction COMPARISON: None TECHNIQUE: Real-time ultrasound performed utilizing grayscale and color techniques. FINDINGS: RIGHT KIDNEY: 11.1 x 5.8 x 5.1 cm in length. No hydronephrosis or nephrolithiasis. No suspicious le sions identified. LEFT KIDNEY: 10.2 x 5.4 x 5.0 cm in length. No hydronephrosis or nephrolithiasis. No suspicious les ions identified. BLADDER: No mural thickening or focal lesion. Prevoid urinary bladder volume of 267 mL. No postvoid i mages were available. OTHER: None. IMPRESSION: No significant abnormality identified.
[2024-08-21] VITALS (22 sets, daily range): BP systolic 99–141; BP diastolic 69–99; PULSE 110–143; RESP 16–30; TEMP 97.2–97.8; O2SAT 91–94
[2024-08-21 06:50] LABS: BASOPHILS % (AUTO) 0 % (0-1); EOSINOPHILS % (AUTO) 0.1 % (0-6); HEMATOCRIT 46.4 % (42.0-52.0); HEMOGLOBIN 15.2 g/dl (14.0-17.9); LYMPHOCYTES # (AUTO) 0.5 X10'3 (1.1-4.8); LYMPHOCYTES % (AUTO) 2.8 % (21-51); MEAN CORPUSCULAR HEMOGLOBIN 27.6 PG (27.0-31.0); MEAN CORPUSCULAR HGB CONC 32.7 g/dL (33.0-36.5); MEAN CORPUSCULAR VOLUME 84.2 FL (78-98); MEAN PLATELET VOLUME 8.2 FL (7.4-10.4); MONOCYTES # (AUTO) 2.1 X10'3 (0-0.9); MONOCYTES % (AUTO) 13.2 % (2-12); NEUTROPHILS # (AUTO) 13.4 X10'3 (1.8-7.7); NEUTROPHILS % (AUTO) 83.9 % (42-75); PLATELET COUNT 232 X10'3 (140-440); RED BLOOD COUNT 5.51 X10'6 (4.70-6.10); WHITE BLOOD COUNT 15.9 X10'3 (4.5-11.0)
[2024-08-21 07:01] LABS: ALANINE AMINOTRANSFERASE 19 U/L (12-78); ALBUMIN 2.2 G/DL (3.4-5.0); ALBUMIN/GLOBULIN RATIO 0.5 (1.1-1.5); ALKALINE PHOSPHATASE 110 IU/L (46-116); ANION GAP 17 (8-16); ASPARTATE AMINO TRANSFERASE 24 U/L (10-37); BILIRUBIN,TOTAL 0.8 MG/DL (0.1-1.0); BLOOD UREA NITROGEN 77 MG/DL (7-18); BUN/CREATININE RATIO 15.5 (10.0-20.0); CALCIUM 8.1 MG/DL (8.5-10.1); CHLORIDE 106 MMOL/L (99-107); CREATININE 4.96 MG/DL (0.60-1.10); GLUCOSE 146 MG/DL (70-104); POTASSIUM 3.4 MMOL/L (3.5-5.1); SODIUM 142 MMOL/L (135-145); TOTAL CARBON DIOXIDE 18.8 MMOL/L (24-32); TOTAL PROTEIN 6.6 G/DL (6.4-8.2); eCRCL 12 ML/MIN; eGFR 11 ML/MIN
[2024-08-21] MEDS ORDERED: potassium Cl 20 mEq SR tablet PO PRN ×2 (07:40)
[2024-08-21] MEDS: sodium bicarbonate 1meq/ml inj 150 ML in dextrose 5%-water 1,000 ML IV SCH (11:01)
--- NOTE | 2024-08-21 11:05 | PROGRESS NOTE- Residence ---
Progress Note - Resident Providers to CC Resident Creating Document: BOBY PELLETIER RES ~ Antibiotic Timeout Antibiotic Ordered?: No Subjective The patient has been evaluated at bedside. The patient currently denies any symptoms. Objective Vital Signs Date Time Temp Pulse Resp B/P (MAP) Pulse Ox O2 Delivery O2 Flow Rate FiO2 08/21/24 09:41 128 140/84 08/21/24 05:00 27 08/21/24 02:00 97.8 94 Nasal Cannula 2.0 Result Diagram: 08/21/2460408/21/24 06 Awake , alert, and oriented x4, resting comfortably in the bed, in no acute distress HEENT: Atraumatic, normocephalic, EOMI, anicteric sclera ; pink conjunctiva Neck: Trachea midline. Supple, full range of motion, no JVD Cardiac: Irregular rhythm, irregular rate with no murmurs all over the precordium. Respiratory: Equal breath sounds bilaterally, no tachypnea, no wheezing ,rub or rales, Chest wall is symmetric and without deformity. Gastrointestinal: Abdomen symmetric, non-distended, soft, slight tenderness at the right and left flank, normal bowel sounds x4 quadrant, normoactive, no hepatosplenomegaly Musculoskeletal: No pedal edema, no cyanosis Neurological: Speech is clear, alert, and oriented x 4. No motor or sensory deficit, deep tendon reflexes normal, cerebellar intact. Cranial nerves II-XII intact. Skin: Warm and dry Coagulation Studies Laboratory Tests Test 08/13/24 16:27 08/15/24 11:33 Prothrombin Time 11.0 SECONDS (9.0-12.0) INR International Normalized Ratio 1.1 INR Activated Partial Thromboplast Time 28 SECONDS (22-32) APTT (Heparin Protocol) 54 SECONDS (45-60) Coagulation Comments Advance Care Planning Advanced Care plannin - 30 Minutes Assessment Assessment An 78 years old male with chronic AFib with RVR on non anticoagulation, throat cancer s/p radical surgery and XRT. s/p tonsillectomy or hernia repair surgery, and FHx of cancer in brother with prostate and lung cancer, sister had thyroid and stomach cancer presented with the acute right flank pain radiated downward to his groin and genital area. Plan Plan 1. Dysphagia with residual food regurgitation: S/P EGD on 08/18/24 Nodular Mass in posterior pharynx, suspicious for malignancy Eosinophilic esophagitis- middle third of the esophagus Multiple non-bleeding cratered duodenal ulcers EGD on 08/18/24 showed: A large, bulky, exophytic, nodular, friable, and highly vascular mass was identified in the posterior pharynx, suspicious for malignancy. The mass poses a significant risk of airway obstruction and complete obstruction in the piriform fossa, contributing to absolute dysphagia. Mucosal changes suggestive of eosinophilic esophagitis were observed in the middle third of the esophagus. Findings included a ringed esophagus, graded as Grade 2 Moderate on the Eosinophilic Esophagitis Endoscopic Reference Score (EoE-EREFS): distinct rings that do not occlude passage of an 8-10 mm endoscope. Severe diffuse mucosal changes throughout the entire examined stomach characterized by congestion, erythema, friability (with contact bleeding), granularity, and linear erosions. Multiple non-bleeding cratered duodenal ulcers with pigmented material were identified in the duodenal bulb and second portion of the duodenum. Continue diet as tolerated. Continue Protonix (pantoprazole) to 40 mg IV b.i.d. to promote healing of peptic ulcer disease (PUD). Urgent ENT consultation for evaluation and management of the posterior pharyngeal mass and impending airway obstruction. Consider placement of a percutaneous endoscopic gastrostomy (PEG) tube for nutritional support after adequate healing of PUD with proton pump inhibitor therapy, given the anticipated absolute dysphagia. Await pathology results from all biopsies to determine the nature of the pharyngeal mass, gastric changes, and eosinophilic esophagitis. Follow up with the primary care physician and gastroenterology for management based on biopsy results. 08/20/24: Continue Protonix 40 mg IV b.i.d. for 2 more days for proper healing of his peptic ulcer disease Plan for PEG tube placement tomorrow. Patient will need stat outpatient follow up with the ENT 08/21/2024: Bicarb was 15, hence patient is currently on bicarb drip, continue Protonix 40 mg b.i.d. Plan for PEG tube placement likely today after assessment 2. Acute abdominal pain from severe constipation: Symptoms now improving with bowel movements. Adjust laxatives as needed (Miralax PRN) to balance efficacy with renal function. Maintain hydration with IV normal saline at 70 mL/hr. Monitor for recurrence of constipation or bloating. 3. Type 2 myocardial infarction (T2MI): Completed IV heparin; transitioned to renal-dose apixaban (2.5 mg BID). Continue aspirin, atorvastatin 40 mg daily, and metoprolol 50 mg BID. 4. Chronic AFib with RVR: Rate well-control per Hospitalist team, currently on Diltiazem drip Continue apixaban for stroke prophylaxis. 5. Acute kidney injury (KIARA) from tubular stasis: Creatinine trending up, consider Nephrology consultation 6. Hypertension: Blood pressure remains controlled 7. History of throat cancer: Nutritional support with liquid diet and multivitamins ongoing. Code Status: Full code DVT Prophylaxis: Apixaban Prognosis: Guarded Boby Pelletier MD Internal Medicine Resident, PGY-1 Date of Service: Aug 22, 2024 Billing Provider: SIGIFREDO ROSALES MD, GAURAV, RES Aug 21, 2024 11:05
--- NOTE | 2024-08-21 14:14 | PATHOLOGY REPORT ---
[facility] [address] [place] [address] SURGICAL PATHOLOGY REPORT CaseNumber: [id number] Surgeon:Sandy Escobar M.D. CLINICAL INFORMATION CLINICAL INFORMATION: Dysphagia and posterior pharynx mass. DIAGNOSIS DIAGNOSIS: A.STOMACH, ANTRUM; BIOPSY - MILD CHRONIC GASTRITIS. - NEGATIVE FOR DYSPLASIA AND MALIGNANCY. DIAGNOSIS: B.ESOPHAGUS; BIOPSY - MILD ACANTHOSIS AND MILD ACUTE AND CHRONIC ESOPHAGITIS. - NEGATIVE FOR DYSPLASIA AND MALIGNANCY. - HISTOCHEMICAL STAIN NEGATIVE FOR FUNGUS. DIAGNOSIS: C.ORAL MUCOSA, POSTERIOR PHARYNX; BIOPSY - BENIGN SQUAMOUS PAPILLOMA WITH ULCER. - NEGATIVE FOR DYSPLASIA AND MALIGNANCY. - SEE COMMENT. COMMENT NOTE: As a part of intradepartmental quality control lead review, Dr. Bisi Sims has reviewed this case (specimen C) and concurs. NOTE: As a part of intradepartmental quality control lead review, Dr. Bisi Sims has reviewed this case (specimen C) and concurs. NOTE: As a part of intradepartmental quality control lead review, Dr. Bisi Sims has reviewed this case (specimen C) and concurs. MICROSCOPIC DESCRIPTION A. STOMACH, ANTRUM MICROSCOPIC DESCRIPTION: Microscopic examination is performed on one H&E stained slide. Present is ga stric antral mucosa with mild expansion of the lamina propria by lymphocytes and plasma cells includi ng small benign lymphoid aggregates. There is no evidence of ulcer, dysplasia, or malignancy. The H&E stained slide is negative for Helicobacter pylori-like organisms. B. ESOPHAGUS MICROSCOPIC DESCRIPTION: Microscopic examination is performed on one H&E stained slide. Present is sq uamous-bearing esophageal mucosa with mild acanthosis and focal mild acute and chronic inflammation. Eosinophils are not identified. There is no evidence of polarizable debris, intestinal metaplasia, vi ral effect, dysplasia, or malignancy. A histochemical stain for fungus (PAS) is completed and is nega tive. C. ORAL MUCOSA, POSTERIOR PHARYNX MICROSCOPIC DESCRIPTION: Microscopic examination is performed on one H&E stained slide. Present is a squamous papilloma with overlying ulcer. Abundant bacterial and fungal forms are present within the s pecimen. Dysplasia and malignancy are not identified. (st) GROSS DESCRIPTION A. STOMACH, ANTRUM GROSS DESCRIPTION: Received in a container of formalin labeled with the patient's name, number, and " antrum BX" which are 2 pieces of newman tissue 0.2 and 0.3 cm. The specimen is entirely submitted as A1. The time at which the specimen was removed was 1002. The time at which the specimen was placed in fo rmalin was 1008. B. ESOPHAGUS GROSS DESCRIPTION: Received in a container of formalin labeled with the patient's name, number, and " eso bx" is a 0.5 x 0.2 x 0.1 cm piece of saavedra-newman tissue. The specimen is entirely submitted as B1. T he time at which the specimen was removed was 1004. The time at which the specimen was placed in form efra was 1008. C. ORAL MUCOSA, POSTERIOR PHARYNX GROSS DESCRIPTION: Received in a container of formalin labeled with the patient's name, number, and posterior pharynx BX" is a are 4 pieces of newman tissue 0.1-0.4 x 0.2 x 0.1 cm irregularly shaped fragm ents of newman tissue. The specimen is entirely submitted as C1. The time at which the specimen was re moved was 1005. The time at which the specimen was placed in formalin was 1008. Electronically signed by: Levi Stewart D.O. 08/21/2024 1:34:00 PM
--- NOTE | 2024-08-21 17:29 | PROGRESS NOTE- Residence ---
Progress Note - Resident Providers to CC Resident Creating Document: JNOATHAN BLANKENSHIP RES ~ Antibiotic Timeout Antibiotic Ordered?: Yes Subjective Patient seen and examined today. He feels weak and wants a G-tube for nutrition. Denies any new complaints Objective Vital Signs Date Time Temp Pulse Resp B/P (MAP) Pulse Ox O2 Delivery O2 Flow Rate FiO2 08/21/24 15:00 97.2 135 25 118/75 (89) 93 Nasal Cannula 2.0 Result Diagram: 08/21/2460408/21/24604 General: Alert and oriented x 4 HEENT: Normocephalic and atraumatic. Pupils equal round and reactive to light and accommodation. Extraocular movements intact. Oral and nasal mucosa moist Neck: Trachea is in midline. No masses or JVD Lungs: Bilateral normal breath sounds. No crackles, rhonchi or wheezes Heart: Irregular rhythm. Tachycardic. No rubs or murmurs Abdomen: Soft, nontender and nondistended. 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 abnormalities Extremities: No cyanosis, clubbing or edema Skin: Warm and dry Coagulation Studies Laboratory Tests Test 08/13/24 16:27 08/15/24 11:33 Prothrombin Time 11.0 SECONDS (9.0-12.0) INR International Normalized Ratio 1.1 INR Activated Partial Thromboplast Time 28 SECONDS (22-32) APTT (Heparin Protocol) 54 SECONDS (45-60) Coagulation Comments Assessment Assessment The 78-year-old male with a past medical history of throat cancer-s/p surgery and radiation about 25 years back, starting atrial fibrillation, hypertension presented to the ER on 08/13/2024 with a chief complaint of right flank pain. Abdomen/pelvis CT did not show any significant findings. He also complained of several weeks of dysphagia. So, an EGD was done on 08/18/2024 which showed relapsed throat cancer. Not able to eat or drink anything. Admitted for further management Plan Plan Acute kidney injury on possible CKD-unknown stage and baseline Oliguria-improving Metabolic acidosis with elevated anion gap Likely due to intravascular volume depletion secondary to no intake of solid food or liquids Increased normal saline to 150 cc/hour on 08/18/2024 after a bump in creatinine from 2.46 to 4.01 Urine output improved but creatinine continue to trend up Possibly must have developed ATN Repeat urinalysis, urine sodium, potassium, creatinine, urine eosinophils and osmolality ordered - pending Strict I&Os recommended BUN and creatinine stable. Metabolic acidosis improving Agree with continuing 150 mEq sodium bicarb in D5 water at 150 cc/hour Requires a G-tube for nutrition to maintain fluid and electrolyte balance Dysphagia with residual food regurgitation: S/P EGD on 08/18/24 Nodular Mass in posterior pharynx, suspicious for malignancy Eosinophilic esophagitis- middle third of the esophagus Multiple non-bleeding cratered duodenal ulcers EGD on 08/18/24 showed: -A large, bulky, exophytic, nodular, friable, and highly vascular mass was identified in the posterior pharynx, suspicious for malignancy. -The mass poses a significant risk of airway obstruction and complete obstruction in the piriform fossa, contributing to absolute dysphagia. -recommended stat ENT consultation -Protonix 40 mg IV b.i.d. Follow up with the biopsy reports Looks like there is a plan to place PEG tube by the GI Eliquis on hold for surgical procedures White count remains high. On ciprofloxacin 200 mg IV q.12h and metronidazole 500 mg IV q.8h Atrial fibrillation with RVR On Cardizem drip at 15 mg/hour Patient not able to take any oral pills Anticoagulation on hold due to possible PEG tube placement Hypertension Patient not able to tolerate oral medications On IV hydralazine 10 mg q.6h p.r.n. with holding parameters DVT prophylaxis: Recommend SCDs till anticoagulation is started Jonathan Blankenship MD Internal Medicine Resident, PGY 2 Date of Service: Aug 21, 2024 Billing Provider: MEGHAN WOMACK III, MANOJNA RES Aug 21, 2024 17:29
--- NOTE | 2024-08-21 18:04 | PROGRESS NOTE- Residence ---
Progress Note - Resident Providers to CC Resident Creating Document: SAMEER GONZALEZ, RES ~ Antibiotic Timeout Antibiotic Ordered?: Yes Subjective Patient has been evaluated at the bedside today. The patient states that he feels good, endorses some orthopnea. Denies any pain. Objective Vital Signs Date Time Temp Pulse Resp B/P (MAP) Pulse Ox O2 Delivery O2 Flow Rate FiO2 08/21/24 15:00 97.2 135 25 118/75 (89) 93 Nasal Cannula 2.0 Physical exam: General: Well alert, well oriented, not confused, not agitated, not in acute distress, well cooperated during the physical. HEENT: Conjunctive are pink, sclerae clear, no icterus, pupil is equal in both sides, reactive to light, no ear discharge, no pharyngeal erythema or an edema. Neck: Supple, no JVD, no lymphadenopathy and thyromegaly. Chest: Equal air entry on both lungs, presence of crackles in bilateral bases. Cardiovascular: S1-S2 regular sinus rhythm and, regular rate, no gallops, no rubs, no murmurs Abdomen: No visible peristalsis, Bowel sounds present on auscultation, soft, nontender, no guarding, no rigidity Extremities: No obvious deformities, no pitting edema bilaterally, capillary refill intact, peripheral pulsations are intact on both sides Central Nervous System: No focal neurological deficits, no motor or sensory weakness in all 4 extremities, could move all 4 extremities, 2+ deep tendon reflexes, negative Babinski. Musculoskeletal: No joint swelling, deformities, inflammations, and no scoliosis and back tenderness Skin: Warm and dry. Result Diagram: 08/21/2460408/21/24 06 Coagulation Studies Laboratory Tests Test 08/13/24 16:27 08/15/24 11:33 Prothrombin Time 11.0 SECONDS (9.0-12.0) INR International Normalized Ratio 1.1 INR Activated Partial Thromboplast Time 28 SECONDS (22-32) APTT (Heparin Protocol) 54 SECONDS (45-60) Coagulation Comments Assessment Assessment An 78 years old male with chronic AFib with RVR on non anticoagulation, throat cancer s/p radical surgery and XRT. s/p tonsillectomy or hernia repair surgery, and FHx of cancer in brother with prostate and lung cancer, sister had thyroid and stomach cancer presented with the acute right flank pain radiated downward to his groin and genital area. Plan Plan Dysphagia and food residual regurgitation 08/17/2024: Patient agrees to have ST eval this time, he underwent ST eval which recommended for GI/ENT recommendation/consultation for full residual regurgitation and could not swallow the food because of the stenosis from post surgical resection and XRT. -GI, Dr Colorado was requested for the consultation, plans to do EGD with a possible plan of esophageal dilatation if it is allows and feasible. Otherwise, needs the PEG feeding tube. On 08/18/2024: EGD done which showed large bulky nodular and friable mass in the posterior following suspicion for recurrent malignancy, eosinophilic esophagitis, friable eroded mucosa in the stomach and nonbleeding duodenal ulcers. Multiple biopsies taken. Patient is encouraged to have full liquid diet. Increase Protonix to 40 mg IV b.i.d.. Recommended stat ENT consultation. Follow up with the pathology reports -on ciprofloxacin and metronidazole. Elevated WBCs On 08/19/2024: Ordered CT neck after discussing with radiologist. We will follow up with the results to evaluate pharyngeal mass. Patient may need ENT consultation. Patient is on NPO. Continue ciprofloxacin and metronidazole. Ordered NG tube and patient needs to get the medications through NG tube. On 08/20/2024: Neck CT scan no evidence of cervical mass lesion, pathologically enlarged lymph nodes or fluid collection. Mild mucosal irregularities noted in the oropharynx, entirely nonspecific and can not be further characterized on this study. The patient requires CT scan with contrast unfortunately we can not obtain due to kidney function. GI Dr. Colorado we will perform PEG tube placement tomorrow. 08/21/2024: GI specialist, Dr. Colorado scheduled PEG tube placement on 08/22/2024. Type 2MI 08/14/2024:-patient is currently on IV heparin and continue it -possibly secondary from AFib with RVR and a uncontrolled hypertension. -consulted with Dr Yoo cardiology and appreciate it, who recommended for continuing home metoprolol 50 mg b.i.d., continue atorvastatin 40 mg daily with goal of LDL <55, anticoagulation was limited for his throat cancer history. 08/15/2024: Continue mainly medical management which was recommended by the Cardiology including IV heparin for 48 hours, DAPT, statin, metoprolol. -2D echocardiogram showed mildly reduced function of LV with mild concentric hypertrophy, LVEF 45-50%, severely dilated RV with mildly reduced function, RVSP 43 mm Hg, moderately dilated LA, severely dilated RA, mild MR, TR, normal pericardium and no effusion. -Cardiology is on board 08/16/2024: Continue medical management. Stop heparin after 48 hours 08/17/2024: Completed heparin IV 48 hours, on aspirin and Eliquis, continue medical therapy 08/18/2024: On aspirin 81 mg p.o. daily. Hold Eliquis for EGD today. Holding Eliquis for possible PEG tube placement. Will consult GI tomorrow about questionable PEG tube placement 08/19/2024: Continue aspirin through NG tube. 08/20/2024: Continue aspirin through NG tube. 08/21/2024: Continue aspirin. Patient currently without NG tube. Refusing oral medication. Planned PEG tube placement on 08/22/2024. Acute abd pain from Constipation 08/14/2024:-mineral oil prn -continue p.o. lactulose 30 mL b.i.d., p.o. MiraLax 17 g every HS, docusate 100 mg b.i.d. -we will consider soap enema if he wound have any bowel movement after those measures -control the pain with acetaminophen as much as possible to avoid unnecessary constipation from opiates -continue IV ciprofloxacin Day 2 08/15/2024: Patient had bowel movements today, downgraded laxatives because of his in climbing creatinine level. 08/16/2024: Patient had loose bowel motion which is liquidy as the patient is mainly on the full liquid diet. continue only Miralax as needed for now and trending up Cr 08/17/2024: Is having bowel movement mostly liquidy as the patient is on the liquid diet. 08/18/2024: Is having bowel movements. Is on full liquid diet 08/20/2024: Last bowel movement on 08/17/2024. The patient will undergo PEG tube placement tomorrow or day after. Currently on full liquid diet. 08/21/2024: Pending PEG tube placement of 08/22/2024. NPO after midnight. A fib w/ RVR no on anticoagulation: 08/14/2024:-was given IV diltiazem drip, cardiology recommended for titrating up current metoprolol as needed for rate control -currently maintaining heart rate around 90s 08/15/2024: Heart rate is not controlled well today, continue metoprolol 100 mg BID for better Afib control not on anticoag because of his throat cancer surgery PMH 08/16/2024: Heart rate control around 90s, continue current metoprolol 100 mg b.i.d., we will need to discharge on metoprolol 50 mg b.i.d. as his blood pressure is on soft side 08/17/2024: Given one time dose of IV labetalol 5 mg, and another one time dose of IV labetalol 10 mg for RVR, patient needs to be on maintenance metoprolol 50 mg b.i.d. at least. 08/18/2024: Patient's heart rate went up to 140s. Given one dose of Cardizem 20 mg IV push. Heart rate remained in 110s to 120s. Given another dose of Cardizem 25 mg IV push about 2 hours later. Now, heart rate remained less than 110/minute. If needed, will start Cardizem drip. LVEF 40-45%. 08/19/2024: Bumped up the dose of Cardizem to 7.5 initially and then to 10. Patient may need amiodarone in the night. Consult Cardiology if it is uncontrolled for cardioversion 08/20/2024: Increased dose of Cardizem drip to 20 mg/hour. Consult Cardiology if it is uncontrolled for cardioversion. 08/21/2024: The patient is currently on Cardizem drip at 20 mg/hour. If heart rates remained uncontrolled Cardizem push p.r.n. patient is requiring PEG tube placement to continue p.o. medications. KIARA on CKD stage IV unknown baseline: Vasomotor nephropathy: Oliguria-improving: Metabolic acidosis with elevated anion gap: 08/15/2024:-creatinine is trending up to 2.75 today, downgrading the laxatives usage and optimize the fluid and continue IV normal saline 0.9% 70 ml/ hours. 08/16/2024: Creatinine 2.68, gradually trending down from yesterday. Continue IV normal saline 0.9% 70 mL/hr. 08/17/2024: Not much difference in creatinine, continue monitoring including I's and O's 08/18/2024: Creatinine went up to 4.01 from 2.46- could be due to volume depletion from not being able to eat or drink and has been NPO since midnight for EGD today. Persistent oliguria- urine output less than 0.5 mL/kg/hour. Urine lytes ordered. Will consult Nephrology tomorrow in a.m. if creatinine remains high or trends up. Worsening metabolic acidosis. Increase normal saline 100 cc/hour. Taper fluids tomorrow 08/19/2024: Creatinine went up to more than four and it is on the wrong direction. 08/20/2024: Bicarb levels 15, creatinine trending up, bicarb drip with three ampules of bicarbonate started. 08/21/2024: Bicarb levels improving, current bicarbonate levels 18. Nephrology following the patient, agrees with bicarb drip. We will continue monitoring CMP. Endorsing need of G-tube for nutrition to maintain fluid and electrolyte balance. In due to bilateral crackles decreased rate of bicarb drip to 70 mL/hour. Hypertension -blood pressure is currently controlled, around 110/70 -continue IV hydralazine 10 mg PRN -patient is currently on the tamsulosin for his possible diagnosis of kidney stone/BPH History of throat cancer -s/p radical resection surgery and XRT 25 years ago -currently on liquid diet only for two years now. -started and continue liquid centrum with multivitamins. Code status: Full code DVT prophylaxis: SCDs Analgesia/sedation: Acetaminophen and IV morphine as needed. Line/tube: PIV GI prophylaxis: Protonix 40 mg IV b.i.d. Nutrition: Liquid diet. PT: Recommended post-acute care. Prognosis: Guarded. Disposition: Nephrology is following the patient, planned PEG tube placement on 08/22/2024. Sameer Zhao Internal Medicine Resident [facility] Addendum throat bx result: no CA, benign papilloma, abundance of bacct and fungus? ent poss consultation for recommendations Date of Service: Aug 21, 2024 Billing Provider: AYAAN GREY MD Common Visit Codes: [id number] INP/OBS CARE(HIGH) SAMEER GONZALEZ, RES Aug 21, 2024 18:04 AYAAN GREY MD Aug 21, 2024 21:00
[2024-08-22] VITALS (39 sets, daily range): BP systolic 78–140; BP diastolic 45–105; PULSE 74–145; RESP 16–34; TEMP 95.6–97.6; O2SAT 91–97
[2024-08-22 06:28] LABS: BASOPHILS # (AUTO) 0.1 X10'3 (0-0.2); BASOPHILS % (AUTO) 0.4 % (0-1); EOSINOPHILS % (AUTO) 0.1 % (0-6); HEMATOCRIT 47.6 % (42.0-52.0); HEMOGLOBIN 16.1 g/dl (14.0-17.9); LYMPHOCYTES # (AUTO) 0.5 X10'3 (1.1-4.8); LYMPHOCYTES % (AUTO) 3.4 % (21-51); MEAN CORPUSCULAR HEMOGLOBIN 27.5 PG (27.0-31.0); MEAN CORPUSCULAR HGB CONC 33.9 g/dL (33.0-36.5); MEAN CORPUSCULAR VOLUME 81.2 FL (78-98); MONOCYTES # (AUTO) 2.3 X10'3 (0-0.9); MONOCYTES % (AUTO) 15.2 % (2-12); NEUTROPHILS % (AUTO) 80.9 % (42-75); PLATELET COUNT 256 X10'3 (140-440); RED BLOOD COUNT 5.86 X10'6 (4.70-6.10); RED CELL DISTRIBUTION WIDTH 16.3 % (11.5-14.5); WHITE BLOOD COUNT 14.9 X10'3 (4.5-11.0)
[2024-08-22 06:41] LABS: ALANINE AMINOTRANSFERASE 16 U/L (12-78); ALBUMIN 2.3 G/DL (3.4-5.0); ALBUMIN/GLOBULIN RATIO 0.5 (1.1-1.5); ALKALINE PHOSPHATASE 105 IU/L (46-116); ANION GAP 14 (8-16); ASPARTATE AMINO TRANSFERASE 24 U/L (10-37); BLOOD UREA NITROGEN 80 MG/DL (7-18); BUN/CREATININE RATIO 15.2 (10.0-20.0); CALCIUM 8.2 MG/DL (8.5-10.1); CHLORIDE 105 MMOL/L (99-107); CREATININE 5.28 MG/DL (0.60-1.10); GLUCOSE 150 MG/DL (70-104); PRO BRAIN NATRIURETIC PEPTIDE 9935 PG/ML (0-450); SODIUM 144 MMOL/L (135-145); TOTAL CARBON DIOXIDE 24.6 MMOL/L (24-32); TOTAL PROTEIN 6.6 G/DL (6.4-8.2); eCRCL 12 ML/MIN; eGFR 11 ML/MIN
[2024-08-22 07:25] LABS: POTASSIUM 2.6 MMOL/L (3.5-5.1)
[2024-08-22] MEDS: potassium Cl 40MEQ/1/2NS 520ml 520 ML IV PRN (08:51)
[2024-08-22 10:00] LABS: TOTAL CELLS COUNTED 100
[2024-08-22 10:02] LABS: ANISOCYTOSIS 1+; PLATELET ESTIMATE NORMAL
[2024-08-22] MEDS ORDERED: desflurane 240ml liquid inh. IH ONE (10:30)
[2024-08-22] MEDS ORDERED: midazolam 1 mg/ML 2ml injection ONE (10:44)
[2024-08-22] MEDS ORDERED: fentaNYL/PF 50MCG/1 ML 2ML syringe ONE (10:44)
[2024-08-22] MEDS ORDERED: sugammadex 200mg/2ml injection IV ONE (11:13)
[2024-08-22] MEDS ORDERED: etomidate 2mg/ml inj. ONE (11:16)
[2024-08-22] MEDS ORDERED: rocuronium 10mg/ml inj IV ONE (11:27)
--- NOTE | 2024-08-22 11:48 | PROGRESS NOTE- Residence ---
Progress Note - Resident Providers to CC Resident Creating Document: SOFIA BLANKENSHIPAMINTA RES ~ Antibiotic Timeout Antibiotic Ordered?: No Subjective Patient seen and examined today. Denies any new complaints. Is going to get a PEG tube placement done today Objective Vital Signs Date Time Temp Pulse Resp B/P (MAP) Pulse Ox O2 Delivery O2 Flow Rate FiO2 08/22/24 10:20 133 18 08/22/24 08:51 132/85 08/22/24 02:00 97.0 91 Room Air 08/21/24 18:00 3.0 Result Diagram: 08/22/24 0554 08/22/24 0554 General: Alert and oriented x 4 HEENT: Normocephalic and atraumatic. Pupils equal round and reactive to light and accommodation. Extraocular movements intact. Oral and nasal mucosa moist Neck: Trachea is in midline. No masses or JVD Lungs: Bilateral normal breath sounds. No crackles, rhonchi or wheezes Heart: Irregular rhythm. Tachycardic. No rubs or murmurs Abdomen: Soft, nontender and nondistended. Bowel sounds present [employer]: No gross sensory or motor abnormalities Extremities: No cyanosis, clubbing or edema Skin: Warm and dry Coagulation Studies Laboratory Tests Test 08/13/24 16:27 08/15/24 11:33 Prothrombin Time 11.0 SECONDS (9.0-12.0) INR International Normalized Ratio 1.1 INR Activated Partial Thromboplast Time 28 SECONDS (22-32) APTT (Heparin Protocol) 54 SECONDS (45-60) Coagulation Comments Assessment Assessment An 78 years old male with chronic AFib with RVR on non anticoagulation, throat cancer s/p radical surgery and XRT. s/p tonsillectomy or hernia repair surgery, and FHx of cancer in brother with prostate and lung cancer, sister had thyroid and stomach cancer presented with the acute right flank pain radiated downward to his groin and genital area. Plan Plan Acute kidney injury on possible CKD-unknown stage and baseline Oliguria-improving Metabolic acidosis with elevated anion gap Likely due to intravascular volume depletion secondary to no intake of solid food or liquids Increased normal saline to 150 cc/hour on 08/18/2024 after a bump in creatinine from 2.46 to 4.01 Urine output improved but creatinine continue to trend up Possibly must have developed ATN Repeat urinalysis, urine sodium, potassium, creatinine, urine eosinophils and osmolality ordered - pending Strict I&Os recommended BUN and creatinine stable. Metabolic acidosis improving Agree with continuing 150 mEq sodium bicarb in D5 water at 150 cc/hour Requires a G-tube for nutrition to maintain fluid and electrolyte balance 08/22/2024: Bicarb drip 150 cc/hour started on 08/20/2024 and urine output improved to 1.54 mL/kg/hour and creatinine remained stable. On 08/21/2024, Lasix 40 IV b.i.d. started by primary team along with the bicarb drip - BUN went up to 80 and creatinine went up to 5.28. Urine output remained on 1.54 mL/kg/hour . Bicarb drip discontinue last night and patient is being continued on Lasix by primary for pulmonary edema on chest x-ray. Patient denies significant shortness of breath, not requiring oxygen supplementation and no pedal edema. Mild respiratory distress could be from AFib with a RVR as well. Recommend to hold Lasix as the patient's IV fluid discontinued, not taking oral diet as well and so will be in negative fluid balance to manage pulmonary edema. Will reassess tomorrow and start IV fluids or Lasix based on clinical findings if patient goes into oliguria. Recommend strict I&Os Dysphagia with residual food regurgitation: S/P EGD on 08/18/24 Nodular Mass in posterior pharynx, suspicious for malignancy Eosinophilic esophagitis- middle third of the esophagus Multiple non-bleeding cratered duodenal ulcers EGD on 08/18/24 showed: -A large, bulky, exophytic, nodular, friable, and highly vascular mass was identified in the posterior pharynx, suspicious for malignancy. -The mass poses a significant risk of airway obstruction and complete obstruction in the piriform fossa, contributing to absolute dysphagia. -recommended stat ENT consultation -Protonix 40 mg IV b.i.d. Follow up with the biopsy reports Looks like there is a plan to place PEG tube by the GI Tad on hold for surgical procedures White count remains high. On ciprofloxacin 200 mg IV q.12h and metronidazole 500 mg IV q.8h 08/22/2024: Likely to get get PEG tube placement done today Atrial fibrillation with RVR On Cardizem drip at 15 mg/hour Patient not able to take any oral pills Anticoagulation on hold due to possible PEG tube placement Echocardiogram on 08/14/2024 showed LVEF 45-50%, LV mildly reduced function, LV severely dilated with mildly reduced function, RVSP 43 mmHg, right atrium severely dilated and left atrium moderately dilated, mild mitral regurgitation and moderate tricuspid regurgitation Hypertension Patient not able to tolerate oral medications On IV hydralazine 10 mg q.6h p.r.n. with holding parameters DVT prophylaxis: Recommend SCDs till anticoagulation is started Cathy Blankenship MD Internal Medicine Resident, PGY 2 Date of Service: Aug 22, 2024 Billing Provider: MEGHAN WOMACK III, MANOJNA RES Aug 22, 2024 11:47
[2024-08-22] MEDS: normal saline 500ml IV soln 500 ML IV ONE (14:40)
[2024-08-22] MEDS: metoprolol tartrate 50mg tablet PO ONE (15:48)
--- NOTE | 2024-08-22 15:50 | PROGRESS NOTE- Residence ---
Progress Note - Resident Providers to CC Resident Creating Document: GIGI GONZALEZ, JESSE ~ Antibiotic Timeout Antibiotic Ordered?: Yes Subjective The patient has been evaluated at bedside. The patient denies any new complaints. The patient underwent PEG tube placement on 08/22/2024. Starting p.o. medications through PEG tube. Objective Vital Signs Date Time Temp Pulse Resp B/P (MAP) Pulse Ox O2 Delivery O2 Flow Rate FiO2 08/22/24 14:42 133 138/86 08/22/24 12:45 23 94 Mask 5.0 08/22/24 02:00 97.0 Physical exam: General: Well alert, well oriented, not confused, not agitated, not in acute distress, well cooperated during the physical. HEENT: Conjunctive are pink, sclerae clear, no icterus, pupil is equal in both sides, reactive to light, no ear discharge, no pharyngeal erythema or an edema. Neck: Supple, no JVD, no lymphadenopathy and thyromegaly. Chest: Equal air entry on both lungs, presence of crackles in bilateral bases. Cardiovascular: S1-S2 regular sinus rhythm and, regular rate, no gallops, no rubs, no murmurs Abdomen: No visible peristalsis, Bowel sounds present on auscultation, soft, nontender, no guarding, no rigidity Extremities: No obvious deformities, no pitting edema bilaterally, capillary refill intact, peripheral pulsations are intact on both sides Central Nervous System: No focal neurological deficits, no motor or sensory weakness in all 4 extremities, could move all 4 extremities, 2+ deep tendon reflexes, negative Babinski. Musculoskeletal: No joint swelling, deformities, inflammations, and no scoliosis and back tenderness Skin: Warm and dry. Result Diagram: 08/22/24 0554 08/22/24 0554 Coagulation Studies Laboratory Tests Test 08/13/24 16:27 08/15/24 11:33 Prothrombin Time 11.0 SECONDS (9.0-12.0) INR International Normalized Ratio 1.1 INR Activated Partial Thromboplast Time 28 SECONDS (22-32) APTT (Heparin Protocol) 54 SECONDS (45-60) Coagulation Comments Assessment Assessment An 78 years old male with chronic AFib with RVR on non anticoagulation, throat cancer s/p radical surgery and XRT. s/p tonsillectomy or hernia repair surgery, and FHx of cancer in brother with prostate and lung cancer, sister had thyroid and stomach cancer presented with the acute right flank pain radiated downward to his groin and genital area. Plan Plan Dysphagia and food residual regurgitation: No malignancy, benign squamous papilloma with ulcer: 08/17/2024: Patient agrees to have ST eval this time, he underwent ST eval which recommended for GI/ENT recommendation/consultation for full residual regurgitation and could not swallow the food because of the stenosis from post surgical resection and XRT. -GI, Dr Colorado was requested for the consultation, plans to do EGD with a possible plan of esophageal dilatation if it is allows and feasible. Otherwise, needs the PEG feeding tube. On 08/18/2024: EGD done which showed large bulky nodular and friable mass in the posterior following suspicion for recurrent malignancy, eosinophilic esophagitis, friable eroded mucosa in the stomach and nonbleeding duodenal ulcers. Multiple biopsies taken. Patient is encouraged to have full liquid diet. Increase Protonix to 40 mg IV b.i.d.. Recommended stat ENT consultation. Follow up with the pathology reports -on ciprofloxacin and metronidazole. Elevated WBCs On 08/19/2024: Ordered CT neck after discussing with radiologist. We will follow up with the results to evaluate pharyngeal mass. Patient may need ENT consultation. Patient is on NPO. Continue ciprofloxacin and metronidazole. Ordered NG tube and patient needs to get the medications through NG tube. On 08/20/2024: Neck CT scan no evidence of cervical mass lesion, pathologically enlarged lymph nodes or fluid collection. Mild mucosal irregularities noted in the oropharynx, entirely nonspecific and can not be further characterized on this study. The patient requires CT scan with contrast unfortunately we can not obtain due to kidney function. GI Dr. Colorado we will perform PEG tube placement tomorrow. 08/21/2024: GI specialist, Dr. Colorado scheduled PEG tube placement on 08/22/2024. 08/22/2024: The patient underwent PEG tube placement by GI specialist, Dr. Colorado. Restart NPO medications through PEG tube. Pathology report resulted as benign squamous papilloma with ulcer, abundant bacterial and fungal forms are present within the specimen. During PEG tube placement today new biopsies were obtained. We contacted ENT at [facility], (phone number: [phone]). Who recommended outpatient follow-up, they mentioned that the patient does not require any transferred directly, no airway impingement. They recommended origin follow-up, they mentioned that the patient was being followed at [facility], the patient did had an appointment on May and he decided to cancel it. They mentioned that they will arrange a new appointment for him if his referral is still active. Due to the biopsy results they recommended fluconazole for 21 days. Starting fluconazole IV daily. Completed ciprofloxacin. In on 08/22/2024. Metronidazole day 6. Type 2MI 08/14/2024:-patient is currently on IV heparin and continue it -possibly secondary from AFib with RVR and a uncontrolled hypertension. -consulted with Dr Yoo cardiology and appreciate it, who recommended for continuing home metoprolol 50 mg b.i.d., continue atorvastatin 40 mg daily with goal of LDL <55, anticoagulation was limited for his throat cancer history. 08/15/2024: Continue mainly medical management which was recommended by the Cardiology including IV heparin for 48 hours, DAPT, statin, metoprolol. -2D echocardiogram showed mildly reduced function of LV with mild concentric hypertrophy, LVEF 45-50%, severely dilated RV with mildly reduced function, RVSP 43 mm Hg, moderately dilated LA, severely dilated RA, mild MR, TR, normal pericardium and no effusion. -Cardiology is on board 08/16/2024: Continue medical management. Stop heparin after 48 hours 08/17/2024: Completed heparin IV 48 hours, on aspirin and Eliquis, continue medical therapy 08/18/2024: On aspirin 81 mg p.o. daily. Hold Eliquis for EGD today. Holding Eliquis for possible PEG tube placement. Will consult GI tomorrow about questionable PEG tube placement 08/19/2024: Continue aspirin through NG tube. 08/20/2024: Continue aspirin through NG tube. 08/21/2024: Continue aspirin. Patient currently without NG tube. Refusing oral medication. Planned PEG tube placement on 08/22/2024. 08/22/2024: Continue aspirin through PEG tube. Acute abd pain from Constipation 08/14/2024:-mineral oil prn -continue p.o. lactulose 30 mL b.i.d., p.o. MiraLax 17 g every HS, docusate 100 mg b.i.d. -we will consider soap enema if he wound have any bowel movement after those measures -control the pain with acetaminophen as much as possible to avoid unnecessary constipation from opiates -continue IV ciprofloxacin Day 2 08/15/2024: Patient had bowel movements today, downgraded laxatives because of his in climbing creatinine level. 08/16/2024: Patient had loose bowel motion which is liquidy as the patient is mainly on the full liquid diet. continue only Miralax as needed for now and trending up Cr 08/17/2024: Is having bowel movement mostly liquidy as the patient is on the liquid diet. 08/18/2024: Is having bowel movements. Is on full liquid diet 08/20/2024: Last bowel movement on 08/17/2024. The patient will undergo PEG tube placement tomorrow or day after. Currently on full liquid diet. 08/21/2024: Pending PEG tube placement of 08/22/2024. NPO after midnight. 08/22/2024: The patient underwent PEG tube placement today. A fib w/ RVR no on anticoagulation: 08/14/2024:-was given IV diltiazem drip, cardiology recommended for titrating up current metoprolol as needed for rate control -currently maintaining heart rate around 90s 08/15/2024: Heart rate is not controlled well today, continue metoprolol 100 mg BID for better Afib control not on anticoag because of his throat cancer surgery PMH 08/16/2024: Heart rate control around 90s, continue current metoprolol 100 mg b.i.d., we will need to discharge on metoprolol 50 mg b.i.d. as his blood pressure is on soft side 08/17/2024: Given one time dose of IV labetalol 5 mg, and another one time dose of IV labetalol 10 mg for RVR, patient needs to be on maintenance metoprolol 50 mg b.i.d. at least. 08/18/2024: Patient's heart rate went up to 140s. Given one dose of Cardizem 20 mg IV push. Heart rate remained in 110s to 120s. Given another dose of Cardizem 25 mg IV push about 2 hours later. Now, heart rate remained less than 110/minute. If needed, will start Cardizem drip. LVEF 40-45%. 08/19/2024: Bumped up the dose of Cardizem to 7.5 initially and then to 10. Patient may need amiodarone in the night. Consult Cardiology if it is uncontrolled for cardioversion 08/20/2024: Increased dose of Cardizem drip to 20 mg/hour. Consult Cardiology if it is uncontrolled for cardioversion. 08/21/2024: The patient is currently on Cardizem drip at 20 mg/hour. If heart rates remained uncontrolled Cardizem push p.r.n. patient is requiring PEG tube placement to continue p.o. medications. 08/22/2024: Continue Cardizem drip at 20 mg/hour. We will restart p.o. medications, metoprolol 100 mg b.i.d. KIARA on CKD stage IV unknown baseline: Vasomotor nephropathy: Oliguria-improving: Metabolic acidosis with elevated anion gap: 08/15/2024:-creatinine is trending up to 2.75 today, downgrading the laxatives usage and optimize the fluid and continue IV normal saline 0.9% 70 ml/ hours. 08/16/2024: Creatinine 2.68, gradually trending down from yesterday. Continue IV normal saline 0.9% 70 mL/hr. 08/17/2024: Not much difference in creatinine, continue monitoring including I's and O's 08/18/2024: Creatinine went up to 4.01 from 2.46- could be due to volume depletion from not being able to eat or drink and has been NPO since midnight for EGD today. Persistent oliguria- urine output less than 0.5 mL/kg/hour. Urine lytes ordered. Will consult Nephrology tomorrow in a.m. if creatinine remains high or trends up. Worsening metabolic acidosis. Increase normal saline 100 cc/hour. Taper fluids tomorrow 08/19/2024: Creatinine went up to more than four and it is on the wrong direction. 08/20/2024: Bicarb levels 15, creatinine trending up, bicarb drip with three ampules of bicarbonate started. 08/21/2024: Bicarb levels improving, current bicarbonate levels 18. Nephrology following the patient, agrees with bicarb drip. We will continue monitoring CMP. Endorsing need of G-tube for nutrition to maintain fluid and electrolyte balance. In due to bilateral crackles decreased rate of bicarb drip to 70 mL/hour. 08/21/2024: Bicarb levels within reference range. Start bicarb drip. Due to worsening kidney function stopped Lasix by Nephrology recommendation. Given 500 NS bolus. Hypertension -blood pressure is currently controlled, around 110/70 -continue IV hydralazine 10 mg PRN -patient is currently on the tamsulosin for his possible diagnosis of kidney stone/BPH History of throat cancer -s/p radical resection surgery and XRT 25 years ago -currently on liquid diet only for two years now. -started and continue liquid centrum with multivitamins. Code status: Full code DVT prophylaxis: SCDs Analgesia/sedation: Acetaminophen and IV morphine as needed. Line/tube: PIV GI prophylaxis: Protonix 40 mg IV b.i.d. Nutrition: Liquid diet. PT: Recommended post-acute care. Prognosis: Guarded. Disposition: Nephrology is following the patient, underwent PEG tube placement on 08/22/2024. Resuming p.o. medications. Gigi Zhao Internal Medicine Resident [facility] Date of Service: Aug 22, 2024 Billing Provider: AYAAN GREY MD Common Visit Codes: [id number] INP/OBS CARE(HIGH) GIGI GONZALEZ, RES Aug 22, 2024 15:50 AYAAN GREY MD Aug 22, 2024 21:21
[2024-08-22] MEDS ORDERED: fluconazole 100mg tablet PO SCH (15:55)
[2024-08-22] MEDS: fluconazole-Diflucan 200mg/NS 100 ML IV SCH (16:28)
[2024-08-22] MEDS: normal saline 1000ml 1,000 ML IV ONE ×2 (20:11→21:05)
[2024-08-22] MEDS: diltiazem 30mg tablet PO SCH (23:00)
[2024-08-23] VITALS (8 sets, daily range): BP systolic 96–122; BP diastolic 65–87; PULSE 81–106; RESP 16–28; TEMP 97.4–97.9; O2SAT 89–94
[2024-08-23 05:54] LABS: BASOPHILS % (AUTO) 0.2 % (0-1); EOSINOPHILS % (AUTO) 0 % (0-6); HEMATOCRIT 46.3 % (42.0-52.0); HEMOGLOBIN 15.6 g/dl (14.0-17.9); LYMPHOCYTES # (AUTO) 0.5 X10'3 (1.1-4.8); LYMPHOCYTES % (AUTO) 3.5 % (21-51); MEAN CORPUSCULAR HEMOGLOBIN 27.6 PG (27.0-31.0); MEAN CORPUSCULAR HGB CONC 33.6 g/dL (33.0-36.5); MEAN PLATELET VOLUME 8.4 FL (7.4-10.4); MONOCYTES % (AUTO) 7.4 % (2-12); NEUTROPHILS # (AUTO) 12.6 X10'3 (1.8-7.7); NEUTROPHILS % (AUTO) 88.9 % (42-75); PLATELET COUNT 251 X10'3 (140-440); RED BLOOD COUNT 5.65 X10'6 (4.70-6.10); RED CELL DISTRIBUTION WIDTH 16.4 % (11.5-14.5); WHITE BLOOD COUNT 14.2 X10'3 (4.5-11.0)
[2024-08-23 06:02] LABS: ALANINE AMINOTRANSFERASE 12 U/L (12-78); ALBUMIN 2.2 G/DL (3.4-5.0); ALBUMIN/GLOBULIN RATIO 0.5 (1.1-1.5); ALKALINE PHOSPHATASE 93 IU/L (46-116); ANION GAP 19 (8-16); ASPARTATE AMINO TRANSFERASE 14 U/L (10-37); BILIRUBIN,TOTAL 0.9 MG/DL (0.1-1.0); BLOOD UREA NITROGEN 84 MG/DL (7-18); BUN/CREATININE RATIO 15.8 (10.0-20.0); CALCIUM 8.3 MG/DL (8.5-10.1); CHLORIDE 109 MMOL/L (99-107); CREATININE 5.33 MG/DL (0.60-1.10); GLUCOSE 126 MG/DL (70-104); SODIUM 150 MMOL/L (135-145); TOTAL CARBON DIOXIDE 21.8 MMOL/L (24-32); TOTAL PROTEIN 6.4 G/DL (6.4-8.2); eCRCL 11 ML/MIN; eGFR 10 ML/MIN
[2024-08-23 07:06] LABS: TOTAL CELLS COUNTED 100
[2024-08-23 07:07] LABS: ANISOCYTOSIS 1+; PLATELET ESTIMATE NORMAL
--- NOTE | 2024-08-23 09:33 | RADIOLOGY REPORT ---
EXAM: DI CHEST,SINGLE VIEW Indication: sob Technique: Single frontal view of the chest was obtained Comparison: DI CHEST,SINGLE VIEW on DOS: 08/20/24, DI CHEST,SINGLE VIEW on DOS: 08/19/24, DI CHEST,SINGLE VIEW on DOS: 08/13/24 FINDINGS: Lines and Tubes: None Lungs: Small bilateral pleural effusions. Bibasilar opacities. No pneumothorax. Cardiomediastinal contours: Cardiomegaly. Atherosclerotic vascular calcifications of the thoracic ao rta are noted. Bones: No acute osseous abnormality. IMPRESSION: Small bilateral pleural effusions. Bibasilar opacities
[2024-08-23] MEDS ORDERED: acetaminophen 325mg/10.15ml oral unit dose solution PEG PRN (11:26)
[2024-08-23] MEDS ORDERED: cloNIDine 0.1 mg tablet PEG PRN (11:28)
[2024-08-23] MEDS ORDERED: mag hydrox/Alum hydrox/simeth 30ml oral suspension PEG PRN (11:29)
[2024-08-23] MEDS ORDERED: POTASSIUM CHLORIDE 20 MEQ/15 ML oral solution PEG PRN ×2 (11:30→11:37)
--- NOTE | 2024-08-23 11:40 | PROGRESS NOTE- Residence ---
Progress Note - Resident Providers to CC Resident Creating Document: JONATHAN BLANKENSHIP RES ~ Antibiotic Timeout Antibiotic Ordered?: No Subjective Patient seen and examined today. Denies any new complaints today and he got a PEG tube placed. Has not received any tube feeds till now. Received 2 L normal saline boluses last night due to drop in blood pressure. Objective Vital Signs Date Time Temp Pulse Resp B/P (MAP) Pulse Ox O2 Delivery O2 Flow Rate FiO2 08/23/24 08:00 16 Nasal Cannula 4.0 08/23/24 07:44 92 08/23/24 06:00 97.9 122/87 (99) 08/23/24 02:00 91 Result Diagram: 08/23/2452708/23/24527 General: Alert and oriented x 4 HEENT: Normocephalic and atraumatic. Pupils equal round and reactive to light and accommodation. Extraocular movements intact. Oral and nasal mucosa moist Neck: Trachea is in midline. No masses or JVD Lungs: Bilateral normal breath sounds. No crackles, rhonchi or wheezes Heart: Irregular rhythm. Tachycardic. No rubs or murmurs Abdomen: Soft, nontender and moderately distended. PEG tube in place. Normoactive bowel sounds TRAFFIC [employer]GEANT: No gross sensory or motor abnormalities Extremities: No cyanosis, or clubbing. 1+ pedal edema in the left lower extremity Skin: Warm and dry Coagulation Studies Laboratory Tests Test 08/13/24 16:27 08/15/24 11:33 Prothrombin Time 11.0 SECONDS (9.0-12.0) INR International Normalized Ratio 1.1 INR Activated Partial Thromboplast Time 28 SECONDS (22-32) APTT (Heparin Protocol) 54 SECONDS (45-60) Coagulation Comments Assessment Assessment An 78 years old male with chronic AFib with RVR on non anticoagulation, throat cancer s/p radical surgery and XRT. s/p tonsillectomy or hernia repair surgery, and FHx of cancer in brother with prostate and lung cancer, sister had thyroid and stomach cancer presented with the acute right flank pain radiated downward to his groin and genital area. Plan Plan Acute kidney injury on possible CKD-unknown stage and baseline Oliguria-improved Metabolic acidosis with elevated anion gap Likely due to intravascular volume depletion secondary to no intake of solid food or liquids Increased normal saline to 150 cc/hour on 08/18/2024 after a bump in creatinine from 2.46 to 4.01 Urine output improved but creatinine continue to trend up Possibly must have developed ATN Repeat urinalysis, urine sodium, potassium, creatinine, urine eosinophils and osmolality ordered - pending Strict I&Os recommended BUN and creatinine stable. Metabolic acidosis improving Agree with continuing 150 mEq sodium bicarb in D5 water at 150 cc/hour Requires a G-tube for nutrition to maintain fluid and electrolyte balance 08/22/2024: Bicarb drip 150 cc/hour started on 08/20/2024 and urine output improved to 1.54 mL/kg/hour and creatinine remained stable. On 08/21/2024, Lasix 40 IV b.i.d. started by primary team along with the bicarb drip - BUN went up to 80 and creatinine went up to 5.28. Urine output remained on 1.54 mL/kg/hour . Bicarb drip discontinue last night and patient is being continued on Lasix by primary for pulmonary edema on chest x-ray. Patient denies significant shortness of breath, not requiring oxygen supplementation and no pedal edema. Mild respiratory distress could be from AFib with a RVR as well. Recommend to hold Lasix as the patient's IV fluid discontinued, not taking oral diet as well and so will be in negative fluid balance to manage pulmonary edema. Will reassess tomorrow and start IV fluids or Lasix based on clinical findings if patient goes into oliguria. Recommend strict I&Os 08/23/2024: BUN and creatinine stable today. Gave 500 mL normal saline bolus and discontinue diuretics yesterday. Received 2 L normal saline boluses last night due to hypotension. Today, given 250 mL D5 water at 125 cc/hour for 2 hours as he looks free water depleted with hyponatremia, hyperchloremia, metabolic acidosis. Check BMP in 2 hours at 2:30 p.m. today. Good urine output. Urine analysis shows sodium more 20 but FENa more than 1%. Likely has prerenal/intrinsic KIARA picture. Repeat UA to look for any granular casts. No eosinophils. Recommend D5W to 50 mL pushes through the PEG tube. He has mild pedal edema in the left lower extremity but is not moving much. Also requiring oxygen supplementation -repeat chest x-ray showed bilateral small pleural effusions and worsening bibasilar opacities. Dysphagia with residual food regurgitation: S/P EGD on 08/18/24 Nodular Mass in posterior pharynx, suspicious for malignancy Eosinophilic esophagitis- middle third of the esophagus Multiple non-bleeding cratered duodenal ulcers EGD on 08/18/24 showed: -A large, bulky, exophytic, nodular, friable, and highly vascular mass was identified in the posterior pharynx, suspicious for malignancy. -The mass poses a significant risk of airway obstruction and complete obstruction in the piriform fossa, contributing to absolute dysphagia. -recommended stat ENT consultation -Protonix 40 mg IV b.i.d. Follow up with the biopsy reports Looks like there is a plan to place PEG tube by the GI Eliquis on hold for surgical procedures White count remains high. On ciprofloxacin 200 mg IV q.12h and metronidazole 500 mg IV q.8h 08/22/2024: Likely to get get PEG tube placement done today 08/23/2024: Likely to start tube feeding today has been GI recommendations and primary team. Completed about seven day course of ciprofloxacin. On metronidazole 500 IV q.8h and also is started on fluconazole 200 mg IV daily as per [facility] ENT recommendations has a pathology report showed benign squamous papilloma with ulcer, abundant bacterial and fungal forms are present within the specimen. Repeat biopsies were obtained while placing PEG tube as well Atrial fibrillation with RVR Off Cardizem drip Per primary, on metoprolol tartrate 100 mg b.i.d. and diltiazem 60 mg t.i.d. On Aspirin and Lipitor Echocardiogram on 08/14/2024 showed LVEF 45-50%, LV mildly reduced function, LV severely dilated with mildly reduced function, RVSP 43 mmHg, right atrium severely dilated and left atrium moderately dilated, mild mitral regurgitation and moderate tricuspid regurgitation Hypertension Blood pressure last night and received 2 L normal saline boluses DVT prophylaxis: Recommend SCDs till anticoagulation is started Jonathan Blankenship MD Internal Medicine Resident, PGY 2 Date of Service: Aug 23, 2024 Billing Provider: MEGHAN WOMACK III, MANOJNA RES Aug 23, 2024 11:40
--- NOTE | 2024-08-23 11:56 | PROGRESS NOTE- Residence ---
Progress Note - Resident Providers to CC Resident Creating Document: BOBY PELLETIER RES ~ Antibiotic Timeout Antibiotic Ordered?: Yes Subjective Patient seen and examined today. Denies any new complaints per day and he got a PEG tube placed Objective Vital Signs Date Time Temp Pulse Resp B/P (MAP) Pulse Ox O2 Delivery O2 Flow Rate FiO2 08/23/24 08:00 16 Nasal Cannula 4.0 08/23/24 07:44 92 08/23/24 06:00 97.9 122/87 (99) 08/23/24 02:00 91 Result Diagram: 08/23/24 0528 08/23/24 0528 Awake , alert, and oriented x4, resting comfortably in the bed, in no acute distress HEENT: Atraumatic, normocephalic, EOMI, anicteric sclera ; pink conjunctiva Neck: Trachea midline. Supple, full range of motion, no JVD Cardiac: Irregular rhythm, irregular rate with no murmurs all over the precordium. Respiratory: Equal breath sounds bilaterally, no tachypnea, no wheezing ,rub or rales, Chest wall is symmetric and without deformity. Gastrointestinal: Abdomen symmetric, non-distended, soft, slight tenderness at the right and left flank, normal bowel sounds x4 quadrant, normoactive, no hepatosplenomegaly Musculoskeletal: No pedal edema, no cyanosis Neurological: Speech is clear, alert, and oriented x 4. No motor or sensory deficit, deep tendon reflexes normal, cerebellar intact. Cranial nerves II-XII intact. Skin: Warm and dry Coagulation Studies Laboratory Tests Test 08/13/24 16:27 08/15/24 11:33 Prothrombin Time 11.0 SECONDS (9.0-12.0) INR International Normalized Ratio 1.1 INR Activated Partial Thromboplast Time 28 SECONDS (22-32) APTT (Heparin Protocol) 54 SECONDS (45-60) Coagulation Comments Advance Care Planning Advanced Care plannin - 30 Minutes Assessment Assessment An 78 years old male with chronic AFib with RVR on non anticoagulation, throat cancer s/p radical surgery and XRT. s/p tonsillectomy or hernia repair surgery, and FHx of cancer in brother with prostate and lung cancer, sister had thyroid and stomach cancer presented with the acute right flank pain radiated downward to his groin and genital area. Plan Plan Plan 1. Dysphagia with residual food regurgitation: S/P EGD on 08/18/24 Nodular Mass in posterior pharynx, suspicious for malignancy Eosinophilic esophagitis- middle third of the esophagus Multiple non-bleeding cratered duodenal ulcers EGD on 08/18/24 showed: A large, bulky, exophytic, nodular, friable, and highly vascular mass was identified in the posterior pharynx, suspicious for malignancy. The mass poses a significant risk of airway obstruction and complete obstruction in the piriform fossa, contributing to absolute dysphagia. Mucosal changes suggestive of eosinophilic esophagitis were observed in the middle third of the esophagus. Findings included a ringed esophagus, graded as Grade 2 Moderate on the Eosinophilic Esophagitis Endoscopic Reference Score (EoE-EREFS): distinct rings that do not occlude passage of an 8-10 mm endoscope. Severe diffuse mucosal changes throughout the entire examined stomach characterized by congestion, erythema, friability (with contact bleeding), granularity, and linear erosions. Multiple non-bleeding cratered duodenal ulcers with pigmented material were identified in the duodenal bulb and second portion of the duodenum. Continue diet as tolerated. Continue Protonix (pantoprazole) to 40 mg IV b.i.d. to promote healing of peptic ulcer disease (PUD). Urgent ENT consultation for evaluation and management of the posterior pharyngeal mass and impending airway obstruction. Consider placement of a percutaneous endoscopic gastrostomy (PEG) tube for nutritional support after adequate healing of PUD with proton pump inhibitor therapy, given the anticipated absolute dysphagia. Await pathology results from all biopsies to determine the nature of the pharyngeal mass, gastric changes, and eosinophilic esophagitis. Follow up with the primary care physician and gastroenterology for management based on biopsy results. 08/20/24: Continue Protonix 40 mg IV b.i.d. for 2 more days for proper healing of his peptic ulcer disease Plan for PEG tube placement tomorrow. Patient will need stat outpatient follow up with the ENT 08/21/2024: Bicarb was 15, hence patient is currently on bicarb drip, continue Protonix 40 mg b.i.d. Plan for PEG tube placement likely today after assessment 08/23/24: patient underwent PEG tube placement on 08/22/24. Pathology report resulted as benign squamous papilloma with ulcer, abundant bacterial and fungal forms are present within the specimen. Repeat biopsies were obtained during PEG tube placement. Outpatient E[facility] follow up at [facility]. Continue fluconazole, ciprofloxacin, Metronidazole. 2. Acute abdominal pain from severe constipation: Symptoms now improving with bowel movements. Adjust laxatives as needed (Miralax PRN) to balance efficacy with renal function. Maintain hydration with IV normal saline at 70 mL/hr. Monitor for recurrence of constipation or bloating. 3. Type 2 myocardial infarction (T2MI): Completed IV heparin; transitioned to renal-dose apixaban (2.5 mg BID). Continue aspirin, atorvastatin 40 mg daily, and metoprolol 50 mg BID. 4. Chronic AFib with RVR: Rate well-control per Hospitalist team, currently on Diltiazem drip Continue apixaban for stroke prophylaxis. 5. Acute kidney injury (KIARA) from tubular stasis: Creatinine trending up, consider Nephrology consultation 6. Hypertension: Blood pressure remains controlled 7. History of throat cancer: Nutritional support with liquid diet and multivitamins ongoing. Code Status: Full code DVT Prophylaxis: Apixaban Prognosis: Guarded Boby Pelletier MD Internal Medicine Resident, PGY-1 Date of Service: Aug 23, 2024 Billing Provider: SIGIFREDO ROSALES MD, GAURAV, RES Aug 23, 2024 11:56
[2024-08-23 11:58] LABS: PREALBUMIN 10.3 MG/DL (19-36)
--- NOTE | 2024-08-23 12:28 | PROGRESS NOTE- Residence ---
Progress Note - Resident Providers to CC Resident Creating Document: SAMEER GONZALEZ, RES ~ Antibiotic Timeout Antibiotic Ordered?: Yes Subjective The patient has been evaluated at bedside. Starting diet with a PEG tube. Currently denies any complaints. Objective Vital Signs Date Time Temp Pulse Resp B/P (MAP) Pulse Ox O2 Delivery O2 Flow Rate FiO2 08/23/24 08:00 16 Nasal Cannula 4.0 08/23/24 07:44 92 08/23/24 06:00 97.9 122/87 (99) 08/23/24 02:00 91 Physical exam: General: Well alert, well oriented, not confused, not agitated, not in acute distress, well cooperated during the physical. HEENT: Conjunctive are pink, sclerae clear, no icterus, pupil is equal in both sides, reactive to light, no ear discharge, no pharyngeal erythema or an edema. Neck: Supple, no JVD, no lymphadenopathy and thyromegaly. Chest: Equal air entry on both lungs, no pathological sounds, no rhonchus or wheezing. Cardiovascular: S1-S2 regular sinus rhythm and, regular rate, no gallops, no rubs, no murmurs Abdomen: No visible peristalsis, Bowel sounds present on auscultation, soft, nontender, no guarding, no rigidity, presence of PEG tube at the level of the epigastrium. Extremities: No obvious deformities, no pitting edema bilaterally, capillary refill intact, peripheral pulsations are intact on both sides Central Nervous System: No focal neurological deficits, no motor or sensory weakness in all 4 extremities, could move all 4 extremities, 2+ deep tendon reflexes, negative Babinski. Musculoskeletal: No joint swelling, deformities, inflammations, and no scoliosis and back tenderness Skin: Warm and dry. Result Diagram: 08/23/24 0528 08/23/24 0528 Coagulation Studies Laboratory Tests Test 08/13/24 16:27 08/15/24 11:33 Prothrombin Time 11.0 SECONDS (9.0-12.0) INR International Normalized Ratio 1.1 INR Activated Partial Thromboplast Time 28 SECONDS (22-32) APTT (Heparin Protocol) 54 SECONDS (45-60) Coagulation Comments Assessment Assessment An 78 years old male with chronic AFib with RVR on non anticoagulation, throat cancer s/p radical surgery and XRT. s/p tonsillectomy or hernia repair surgery, and FHx of cancer in brother with prostate and lung cancer, sister had thyroid and stomach cancer presented with the acute right flank pain radiated downward to his groin and genital area. Plan Plan Dysphagia and food residual regurgitation: No malignancy, benign squamous papilloma with ulcer: 08/17/2024: Patient agrees to have ST eval this time, he underwent ST eval which recommended for GI/ENT recommendation/consultation for full residual regurgitation and could not swallow the food because of the stenosis from post surgical resection and XRT. -GI, Dr Colorado was requested for the consultation, plans to do EGD with a possible plan of esophageal dilatation if it is allows and feasible. Otherwise, needs the PEG feeding tube. On 08/18/2024: EGD done which showed large bulky nodular and friable mass in the posterior following suspicion for recurrent malignancy, eosinophilic esophagitis, friable eroded mucosa in the stomach and nonbleeding duodenal ulcers. Multiple biopsies taken. Patient is encouraged to have full liquid diet. Increase Protonix to 40 mg IV b.i.d.. Recommended stat ENT consultation. Follow up with the pathology reports -on ciprofloxacin and metronidazole. Elevated WBCs On 08/19/2024: Ordered CT neck after discussing with radiologist. We will follow up with the results to evaluate pharyngeal mass. Patient may need ENT consultation. Patient is on NPO. Continue ciprofloxacin and metronidazole. Ordered NG tube and patient needs to get the medications through NG tube. On 08/20/2024: Neck CT scan no evidence of cervical mass lesion, pathologically enlarged lymph nodes or fluid collection. Mild mucosal irregularities noted in the oropharynx, entirely nonspecific and can not be further characterized on this study. The patient requires CT scan with contrast unfortunately we can not obtain due to kidney function. GI Dr. Colorado we will perform PEG tube placement tomorrow. 08/21/2024: GI specialist, Dr. Colorado scheduled PEG tube placement on 08/22/2024. 08/22/2024: The patient underwent PEG tube placement by GI specialist, Dr. Colorado. Restart NPO medications through PEG tube. Pathology report resulted as benign squamous papilloma with ulcer, abundant bacterial and fungal forms are present within the specimen. During PEG tube placement today new biopsies were obtained. We contacted ENT at [facility], (phone number: [phone]). Who recommended outpatient follow-up, they mentioned that the patient does not require any transferred directly, no airway impingement. They recommended origin follow-up, they mentioned that the patient was being followed at [facility], the patient did had an appointment on May and he decided to cancel it. They mentioned that they will arrange a new appointment for him if his referral is still active. Due to the biopsy results they recommended fluconazole for 21 days. Starting fluconazole IV daily. Completed ciprofloxacin. In on 08/22/2024. Metronidazole day 6. 08/23/2024: Nutrition consulted for diet through PEG tube. Heart rate within reference range. We will continue his medication through PEG tube. Continue metronidazole day 7., continue fluconazole day 2. Type 2MI 08/14/2024:-patient is currently on IV heparin and continue it -possibly secondary from AFib with RVR and a uncontrolled hypertension. -consulted with Dr Yoo cardiology and appreciate it, who recommended for continuing home metoprolol 50 mg b.i.d., continue atorvastatin 40 mg daily with goal of LDL <55, anticoagulation was limited for his throat cancer history. 08/15/2024: Continue mainly medical management which was recommended by the Cardiology including IV heparin for 48 hours, DAPT, statin, metoprolol. -2D echocardiogram showed mildly reduced function of LV with mild concentric hypertrophy, LVEF 45-50%, severely dilated RV with mildly reduced function, RVSP 43 mm Hg, moderately dilated LA, severely dilated RA, mild MR, TR, normal pericardium and no effusion. -Cardiology is on board 08/16/2024: Continue medical management. Stop heparin after 48 hours 08/17/2024: Completed heparin IV 48 hours, on aspirin and Eliquis, continue medical therapy 08/18/2024: On aspirin 81 mg p.o. daily. Hold Eliquis for EGD today. Holding Eliquis for possible PEG tube placement. Will consult GI tomorrow about questionable PEG tube placement 08/19/2024: Continue aspirin through NG tube. 08/20/2024: Continue aspirin through NG tube. 08/21/2024: Continue aspirin. Patient currently without NG tube. Refusing oral medication. Planned PEG tube placement on 08/22/2024. 08/22/2024: Continue aspirin through PEG tube. 08/23/2024: Continue aspirin through PEG tube. Acute abd pain from Constipation 08/14/2024:-mineral oil prn -continue p.o. lactulose 30 mL b.i.d., p.o. MiraLax 17 g every HS, docusate 100 mg b.i.d. -we will consider soap enema if he wound have any bowel movement after those measures -control the pain with acetaminophen as much as possible to avoid unnecessary constipation from opiates -continue IV ciprofloxacin Day 2 08/15/2024: Patient had bowel movements today, downgraded laxatives because of his in climbing creatinine level. 08/16/2024: Patient had loose bowel motion which is liquidy as the patient is mainly on the full liquid diet. continue only Miralax as needed for now and trending up Cr 08/17/2024: Is having bowel movement mostly liquidy as the patient is on the liquid diet. 08/18/2024: Is having bowel movements. Is on full liquid diet 08/20/2024: Last bowel movement on 08/17/2024. The patient will undergo PEG tube placement tomorrow or day after. Currently on full liquid diet. 08/21/2024: Pending PEG tube placement of 08/22/2024. NPO after midnight. 08/22/2024: The patient underwent PEG tube placement today. 08/23/2024: The patient currently denies any complaints. Receiving feeding through PEG tube. A fib w/ RVR no on anticoagulation: 08/14/2024:-was given IV diltiazem drip, cardiology recommended for titrating up current metoprolol as needed for rate control -currently maintaining heart rate around 90s 08/15/2024: Heart rate is not controlled well today, continue metoprolol 100 mg BID for better Afib control not on anticoag because of his throat cancer surgery PMH 08/16/2024: Heart rate control around 90s, continue current metoprolol 100 mg b.i.d., we will need to discharge on metoprolol 50 mg b.i.d. as his blood pressure is on soft side 08/17/2024: Given one time dose of IV labetalol 5 mg, and another one time dose of IV labetalol 10 mg for RVR, patient needs to be on maintenance metoprolol 50 mg b.i.d. at least. 08/18/2024: Patient's heart rate went up to 140s. Given one dose of Cardizem 20 mg IV push. Heart rate remained in 110s to 120s. Given another dose of Cardizem 25 mg IV push about 2 hours later. Now, heart rate remained less than 110/minute. If needed, will start Cardizem drip. LVEF 40-45%. 08/19/2024: Bumped up the dose of Cardizem to 7.5 initially and then to 10. Patient may need amiodarone in the night. Consult Cardiology if it is uncontrolled for cardioversion 08/20/2024: Increased dose of Cardizem drip to 20 mg/hour. Consult Cardiology if it is uncontrolled for cardioversion. 08/21/2024: The patient is currently on Cardizem drip at 20 mg/hour. If heart rates remained uncontrolled Cardizem push p.r.n. patient is requiring PEG tube placement to continue p.o. medications. 08/22/2024: Continue Cardizem drip at 20 mg/hour. We will restart p.o. medications, metoprolol 100 mg b.i.d. 08/23/2024: On diltiazem 60 mg t.i.d. through PEG tube. Heart rate well controlled. KIARA on CKD stage IV unknown baseline: Vasomotor nephropathy: Oliguria-improving: Metabolic acidosis with elevated anion gap: 08/15/2024:-creatinine is trending up to 2.75 today, downgrading the laxatives usage and optimize the fluid and continue IV normal saline 0.9% 70 ml/ hours. 08/16/2024: Creatinine 2.68, gradually trending down from yesterday. Continue IV normal saline 0.9% 70 mL/hr. 08/17/2024: Not much difference in creatinine, continue monitoring including I's and O's 08/18/2024: Creatinine went up to 4.01 from 2.46- could be due to volume depletion from not being able to eat or drink and has been NPO since midnight for EGD today. Persistent oliguria- urine output less than 0.5 mL/kg/hour. Urine lytes ordered. Will consult Nephrology tomorrow in a.m. if creatinine remains high or trends up. Worsening metabolic acidosis. Increase normal saline 100 cc/hour. Taper fluids tomorrow 08/19/2024: Creatinine went up to more than four and it is on the wrong direction. 08/20/2024: Bicarb levels 15, creatinine trending up, bicarb drip with three ampules of bicarbonate started. 08/21/2024: Bicarb levels improving, current bicarbonate levels 18. Nephrology following the patient, agrees with bicarb drip. We will continue monitoring CMP. Endorsing need of G-tube for nutrition to maintain fluid and electrolyte balance. In due to bilateral crackles decreased rate of bicarb drip to 70 mL/hour. 08/22/2024: Bicarb levels within reference range. Start bicarb drip. Due to worsening kidney function stopped Lasix by Nephrology recommendation. Given 500 NS bolus. 08/23/2024: Nephrology following the case. Recommended D5 water at 125 cc/hour for 2 hours. Mentioned possible KIARA prerenal/intrinsic. Repeat urinalysis to look for gutter cast. Recommended D5W 50 mL pushes through PEG tube. Hypertension -blood pressure is currently controlled, around 110/70 -continue IV hydralazine 10 mg PRN -patient is currently on the tamsulosin for his possible diagnosis of kidney stone/BPH History of throat cancer -s/p radical resection surgery and XRT 25 years ago -currently on liquid diet only for two years now. -started and continue liquid centrum with multivitamins. Code status: Full code DVT prophylaxis: SCDs Analgesia/sedation: Acetaminophen and IV morphine as needed. Line/tube: PIV GI prophylaxis: Protonix 40 mg IV b.i.d. Nutrition: Consulted nutrition for PEG tube. PT: Recommended post-acute care. Prognosis: Guarded. Disposition: Nephrology is following the patient, underwent PEG tube placement on 08/22/2024. Resuming p.o. medications. Sameer Zhao Internal Medicine Resident [facility] Date of Service: Aug 23, 2024 Billing Provider: AYAAN GREY MD Common Visit Codes: [id number] INP/OBS CARE(HIGH) SAMEER GONZALEZ, RES Aug 23, 2024 12:28 AYAAN GREY MD Aug 23, 2024 21:55
[2024-08-23 13:05] LABS: BILIRUBIN,URINE NEGATIVE (Neg); CLARITY,URINE SLIGHTLY CLOUDY (Clear); COLOR,URINE YELLOW (Yellow); GLUCOSE, URINE 100 mg/dl (Neg); KETONES,URINE NEGATIVE (Neg); LEUKOCYTE ESTERASE ,URINE MODERATE (Neg); NITRITES, URINE NEGATIVE (Neg); OCCULT BLOOD,URINE LARGE (Neg); PROTEIN,URINE TRACE mg/dl (Neg); UROBILINOGEN,URINE 0.2 E.U/dL (0.2-1.0)
[2024-08-23] MEDS: diltiazem 30mg tablet PEG SCH (13:08)
[2024-08-23 13:18] LABS: UA COLLECTION TYPE STRAIGHT CATH
[2024-08-23 13:20] LABS: BACTERIA,URINE FEW /HPF (Neg)
[2024-08-23 13:21] LABS: AMORPHOUS URATES 1+; SQUAMOUS EPITHELIAL CELL,UR FEW /LPF (FEW)
[2024-08-23 13:22] LABS: COARSE GRANULAR CAST 0-3 /LPF (NEGATIVE)
[2024-08-23] MEDS: magnesium hydroxide 30ml (MOM) UD suspension PEG PRN (15:13)
[2024-08-23 15:28] LABS: ALBUMIN 2.3 G/DL (3.4-5.0); ANION GAP 20 (8-16); BLOOD UREA NITROGEN 89 MG/DL (7-18); CALCIUM 8.1 MG/DL (8.5-10.1); CHLORIDE 107 MMOL/L (99-107); CREATININE 5.24 MG/DL (0.60-1.10); GLUCOSE 133 MG/DL (70-104); POTASSIUM 3.4 MMOL/L (3.5-5.1); SODIUM 148 MMOL/L (135-145); TOTAL CARBON DIOXIDE 20.8 MMOL/L (24-32); eCRCL 12 ML/MIN; eGFR 11 ML/MIN
--- NOTE | 2024-08-23 19:22 | PATHOLOGY REPORT ---
[facility] [address] [place] [address] SURGICAL PATHOLOGY REPORT CaseNumber: [id number] Surgeon:Sandy Escobar M.D. CLINICAL INFORMATION CLINICAL INFORMATION: Posterior palate mass. Dysphagia. DIAGNOSIS DIAGNOSIS: ORAL MUCOSA, POSTERIOR PALATE/PHARYNX; BIOPSY - ERODED SQUAMOUS PAPILLOMA WITH ASSOCIATED REACTIVE CHANGE. COMMENT NOTE: Dr. Levi Stewart has reviewed the case and concurs. MICROSCOPIC DESCRIPTION MICROSCOPIC DESCRIPTION: A single slide of the posterior palate/pharynx biopsy is reviewed. Present i s an irritated squamous papilloma. The hyperkeratotic, parakeratotic, stratified squamous epithelium is heaped up into mounds. The muco sa is eroded. The residual thin stratified squamous epithelium is supported by hyperchromatic polariz ed mature stratified squamous epithelium. There is no focal loss of maturation or polarization. There are no features to suggest the diagnosis of a squamous cell carcinoma, basal cell carcinoma, or tessa noma. (st) GROSS DESCRIPTION GROSS DESCRIPTION: Received in a container of formalin labeled with the patient's name, number, and " posterior palate mass BX" is a 0.6 x 0.4 x 0.2 cm aggregate of irregularly shaped pieces of newman tissu e. The specimen is entirely submitted as A1. The time at which the specimen was removed was 1115. The time at which the specimen was placed in formalin was 1117. Electronically signed by: Bisi Sims M.D. 08/23/2024 6:44:00 PM
[2024-08-23] MEDS: metoprolol tartrate 50mg tablet PEG SCH (21:24)
[2024-08-24] VITALS (8 sets, daily range): BP systolic 89–118; BP diastolic 55–77; PULSE 83–93; RESP 16–18; TEMP 97.1–97.6; O2SAT 90–98
[2024-08-24] MEDS: polyethylene glycol 3350 17gm powd pack PEG PRN (04:08)
[2024-08-24] MEDS: MULTIVIT-MIN/FERROUS GLUCONATE 9 MG/15 ML LIQUID PEG SCH (07:15)
[2024-08-24] MEDS: atorvastatin 20mg tablet PEG SCH (07:16)
[2024-08-24] MEDS: aspirin 81mg tab.chew PEG SCH (07:17)
[2024-08-24 07:42] LABS: BASOPHILS # (AUTO) 0.1 X10'3 (0-0.2); BASOPHILS % (AUTO) 0.5 % (0-1); EOSINOPHILS % (AUTO) 0 % (0-6); HEMATOCRIT 46.3 % (42.0-52.0); HEMOGLOBIN 15.4 g/dl (14.0-17.9); LYMPHOCYTES # (AUTO) 0.6 X10'3 (1.1-4.8); LYMPHOCYTES % (AUTO) 3.4 % (21-51); MEAN CORPUSCULAR HEMOGLOBIN 27.5 PG (27.0-31.0); MEAN CORPUSCULAR HGB CONC 33.3 g/dL (33.0-36.5); MEAN CORPUSCULAR VOLUME 82.8 FL (78-98); MEAN PLATELET VOLUME 8.6 FL (7.4-10.4); MONOCYTES # (AUTO) 1.6 X10'3 (0-0.9); MONOCYTES % (AUTO) 8.8 % (2-12); NEUTROPHILS # (AUTO) 16.1 X10'3 (1.8-7.7); NEUTROPHILS % (AUTO) 87.3 % (42-75); PLATELET COUNT 286 X10'3 (140-440); RED BLOOD COUNT 5.58 X10'6 (4.70-6.10); RED CELL DISTRIBUTION WIDTH 16.8 % (11.5-14.5); WHITE BLOOD COUNT 18.4 X10'3 (4.5-11.0)
[2024-08-24 08:34] LABS: ALANINE AMINOTRANSFERASE 14 U/L (12-78); ALBUMIN 2.2 G/DL (3.4-5.0); ALBUMIN/GLOBULIN RATIO 0.6 (1.1-1.5); ALKALINE PHOSPHATASE 116 IU/L (46-116); ANION GAP 17 (8-16); ASPARTATE AMINO TRANSFERASE 29 U/L (10-37); BILIRUBIN,TOTAL 0.6 MG/DL (0.1-1.0); BLOOD UREA NITROGEN 106 MG/DL (7-18); BUN/CREATININE RATIO 20.5 (10.0-20.0); CALCIUM 7.9 MG/DL (8.5-10.1); CHLORIDE 106 MMOL/L (99-107); CREATININE 5.18 MG/DL (0.60-1.10); GLUCOSE 168 MG/DL (70-104); POTASSIUM 3.2 MMOL/L (3.5-5.1); SODIUM 144 MMOL/L (135-145); TOTAL CARBON DIOXIDE 21.5 MMOL/L (24-32); TOTAL PROTEIN 6.2 G/DL (6.4-8.2); eCRCL 12 ML/MIN; eGFR 11 ML/MIN
[2024-08-24] MEDS ORDERED: magnesium sulf-water 4G/100mL 100 ML IV PRN (10:10)
[2024-08-24] MEDS ORDERED: magnesium sulf-water 2g/50mL 50 ML IV PRN (10:10)
[2024-08-24] MEDS ORDERED: magnesium Cl slow-release 64mg tablet PO PRN (10:10)
[2024-08-24] MEDS ORDERED: potassium Cl 20 mEq SR tablet PO PRN (10:10)
[2024-08-24] MEDS: potassium Cl 20 mEq SR tablet PO PRN (10:41)
[2024-08-24] MEDS: metoclopramide 5 mg/ml inj IV PRN (11:50)
--- NOTE | 2024-08-24 11:58 | PROGRESS NOTE- Residence ---
Progress Note - Resident Providers to CC Resident Creating Document: BOBY PELLETIER RES ~ Antibiotic Timeout Antibiotic Ordered?: Yes Subjective The patient has been evaluated at bedside. Currently denies any gastrointestinal complaints. Objective Vital Signs Date Time Temp Pulse Resp B/P (MAP) Pulse Ox O2 Delivery O2 Flow Rate FiO2 08/24/24 10:44 93 99/68 (78) 08/24/24 08:25 17 98 Nasal Cannula 4.0 08/24/24 06:00 97.6 Result Diagram: 08/24/24 0710 08/24/24 0710 Awake , alert, and oriented x4, resting comfortably in the bed, in no acute distress HEENT: Atraumatic, normocephalic, EOMI, anicteric sclera ; pink conjunctiva Neck: Trachea midline. Supple, full range of motion, no JVD Cardiac: Irregular rhythm, irregular rate with no murmurs all over the precordium. Respiratory: Equal breath sounds bilaterally, no tachypnea, no wheezing ,rub or rales, Chest wall is symmetric and without deformity. Gastrointestinal: Abdomen symmetric, non-distended, soft, slight tenderness at the right and left flank, normal bowel sounds x4 quadrant, normoactive, no hepatosplenomegaly Musculoskeletal: No pedal edema, no cyanosis Neurological: Speech is clear, alert, and oriented x 4. No motor or sensory deficit, deep tendon reflexes normal, cerebellar intact. Cranial nerves II-XII intact. Skin: Warm and dry Coagulation Studies Laboratory Tests Test 08/13/24 16:27 08/15/24 11:33 Prothrombin Time 11.0 SECONDS (9.0-12.0) INR International Normalized Ratio 1.1 INR Activated Partial Thromboplast Time 28 SECONDS (22-32) APTT (Heparin Protocol) 54 SECONDS (45-60) Coagulation Comments Advance Care Planning Advanced Care plannin - 30 Minutes Assessment Assessment An 78 years old male with chronic AFib with RVR on non anticoagulation, throat cancer s/p radical surgery and XRT. s/p tonsillectomy or hernia repair surgery, and FHx of cancer in brother with prostate and lung cancer, sister had thyroid and stomach cancer presented with the acute right flank pain radiated downward to his groin and genital area. Plan Plan 1. Dysphagia with residual food regurgitation: S/P EGD on 08/18/24 Nodular Mass in posterior pharynx, suspicious for malignancy Eosinophilic esophagitis- middle third of the esophagus Multiple non-bleeding cratered duodenal ulcers EGD on 08/18/24 showed: A large, bulky, exophytic, nodular, friable, and highly vascular mass was identified in the posterior pharynx, suspicious for malignancy. The mass poses a significant risk of airway obstruction and complete obstruction in the piriform fossa, contributing to absolute dysphagia. Mucosal changes suggestive of eosinophilic esophagitis were observed in the middle third of the esophagus. Findings included a ringed esophagus, graded as Grade 2 Moderate on the Eosinophilic Esophagitis Endoscopic Reference Score (EoE-EREFS): distinct rings that do not occlude passage of an 8-10 mm endoscope. Severe diffuse mucosal changes throughout the entire examined stomach characterized by congestion, erythema, friability (with contact bleeding), granularity, and linear erosions. Multiple non-bleeding cratered duodenal ulcers with pigmented material were identified in the duodenal bulb and second portion of the duodenum. Continue diet as tolerated. Continue Protonix (pantoprazole) to 40 mg IV b.i.d. to promote healing of peptic ulcer disease (PUD). Urgent ENT consultation for evaluation and management of the posterior pharyngeal mass and impending airway obstruction. Consider placement of a percutaneous endoscopic gastrostomy (PEG) tube for nutritional support after adequate healing of PUD with proton pump inhibitor therapy, given the anticipated absolute dysphagia. Await pathology results from all biopsies to determine the nature of the pharyngeal mass, gastric changes, and eosinophilic esophagitis. Follow up with the primary care physician and gastroenterology for management based on biopsy results. 08/20/24: Continue Protonix 40 mg IV b.i.d. for 2 more days for proper healing of his peptic ulcer disease Plan for PEG tube placement tomorrow. Patient will need stat outpatient follow up with the ENT 08/21/24: Bicarb was 15, hence patient is currently on bicarb drip, continue Protonix 40 mg b.i.d. Plan for PEG tube placement likely today after assessment 08/23/24: patient underwent PEG tube placement on 08/22/24. Pathology report resulted as benign squamous papilloma with ulcer, abundant bacterial and fungal forms are present within the specimen. Repeat biopsies were obtained during PEG tube placement. Outpatient ENT follow up at [facility]. Continue fluconazole, ciprofloxacin, Metronidazole. 08/24/24: Continue antibiotics via PEG tube, patient is currently receiving nutrition through the PEG tube Await biopsy results Discharge per primary team 2. Acute abdominal pain from severe constipation: Symptoms now improving with bowel movements. Adjust laxatives as needed (Miralax PRN) to balance efficacy with renal function. Maintain hydration with IV normal saline at 70 mL/hr. Monitor for recurrence of constipation or bloating. 3. Type 2 myocardial infarction (T2MI): Continue aspirin, atorvastatin 40 mg daily, and metoprolol 50 mg BID via PEG tube. 4. Chronic AFib with RVR: Rate well-control per Hospitalist team, currently on Diltiazem 60 mg t.i.d., via PEG tube Continue apixaban for stroke prophylaxis. 5. Acute kidney injury (KIARA) from tubular stasis: Creatinine 5.18, follow guidelines per Nephrology 6. Hypertension: Blood pressure remains soft 7. History of throat cancer: Outpatient follow up Code Status: Full code DVT Prophylaxis: Apixaban Prognosis: Guarded Boby Pelletier MD Internal Medicine Resident, PGY-1 Date of Service: Aug 24, 2024 Billing Provider: SIGIFREDO ROSALES MD, GAURAV, RES Aug 24, 2024 11:58
--- NOTE | 2024-08-24 15:14 | PROGRESS NOTE- Residence ---
Progress Note - Resident Providers to CC Resident Creating Document: SAMEER GONZALEZ, RES ~ Antibiotic Timeout Antibiotic Ordered?: No Subjective The patient has been evaluated at bedside. Currently denies any symptoms. Objective Vital Signs Date Time Temp Pulse Resp B/P (MAP) Pulse Ox O2 Delivery O2 Flow Rate FiO2 08/24/24 14:27 97.6 91 17 109/63 (78) 93 Nasal Cannula 4.0 Physical exam: General: Well alert, well oriented, not confused, not agitated, not in acute distress, well cooperated during the physical. HEENT: Conjunctive are pink, sclerae clear, no icterus, pupil is equal in both sides, reactive to light, no ear discharge, no pharyngeal erythema or an edema. Neck: Supple, no JVD, no lymphadenopathy and thyromegaly. Chest: Equal air entry on both lungs, no pathological sounds, no rhonchus or wheezing. Cardiovascular: S1-S2 regular sinus rhythm and, regular rate, no gallops, no rubs, no murmurs Abdomen: No visible peristalsis, Bowel sounds present on auscultation, soft, nontender, no guarding, no rigidity, presence of PEG tube at the level of the epigastrium. Extremities: No obvious deformities, no pitting edema bilaterally, capillary refill intact, peripheral pulsations are intact on both sides Central Nervous System: No focal neurological deficits, no motor or sensory weakness in all 4 extremities, could move all 4 extremities, 2+ deep tendon reflexes, negative Babinski. Musculoskeletal: No joint swelling, deformities, inflammations, and no scoliosis and back tenderness Skin: Warm and dry. Result Diagram: 08/24/24 0710 08/24/24 0710 Coagulation Studies Laboratory Tests Test 08/13/24 16:27 08/15/24 11:33 Prothrombin Time 11.0 SECONDS (9.0-12.0) INR International Normalized Ratio 1.1 INR Activated Partial Thromboplast Time 28 SECONDS (22-32) APTT (Heparin Protocol) 54 SECONDS (45-60) Coagulation Comments Assessment Assessment An 78 years old male with chronic AFib with RVR on non anticoagulation, throat cancer s/p radical surgery and XRT. s/p tonsillectomy or hernia repair surgery, and FHx of cancer in brother with prostate and lung cancer, sister had thyroid and stomach cancer presented with the acute right flank pain radiated downward to his groin and genital area. Plan Plan Dysphagia and food residual regurgitation: No malignancy, benign squamous papilloma with ulcer: 08/17/2024: Patient agrees to have ST eval this time, he underwent ST eval which recommended for GI/ENT recommendation/consultation for full residual regurgitation and could not swallow the food because of the stenosis from post surgical resection and XRT. -GI, Dr Colorado was requested for the consultation, plans to do EGD with a possible plan of esophageal dilatation if it is allows and feasible. Otherwise, needs the PEG feeding tube. On 08/18/2024: EGD done which showed large bulky nodular and friable mass in the posterior following suspicion for recurrent malignancy, eosinophilic esophagitis, friable eroded mucosa in the stomach and nonbleeding duodenal ulcers. Multiple biopsies taken. Patient is encouraged to have full liquid diet. Increase Protonix to 40 mg IV b.i.d.. Recommended stat ENT consultation. Follow up with the pathology reports -on ciprofloxacin and metronidazole. Elevated WBCs On 08/19/2024: Ordered CT neck after discussing with radiologist. We will follow up with the results to evaluate pharyngeal mass. Patient may need ENT consultation. Patient is on NPO. Continue ciprofloxacin and metronidazole. Ordered NG tube and patient needs to get the medications through NG tube. On 08/20/2024: Neck CT scan no evidence of cervical mass lesion, pathologically enlarged lymph nodes or fluid collection. Mild mucosal irregularities noted in the oropharynx, entirely nonspecific and can not be further characterized on this study. The patient requires CT scan with contrast unfortunately we can not obtain due to kidney function. GI Dr. Colorado we will perform PEG tube placement tomorrow. 08/21/2024: GI specialist, Dr. Colordao scheduled PEG tube placement on 08/22/2024. 08/22/2024: The patient underwent PEG tube placement by GI specialist, Dr. Colorado. Restart NPO medications through PEG tube. Pathology report resulted as benign squamous papilloma with ulcer, abundant bacterial and fungal forms are present within the specimen. During PEG tube placement today new biopsies were obtained. We contacted ENT at [facility], (phone number: [phone]). Who recommended outpatient follow-up, they mentioned that the patient does not require any transferred directly, no airway impingement. They recommended origin follow-up, they mentioned that the patient was being followed at [facility], the patient did had an appointment on May and he decided to cancel it. They mentioned that they will arrange a new appointment for him if his referral is still active. Due to the biopsy results they recommended fluconazole for 21 days. Starting fluconazole IV daily. Completed ciprofloxacin. In on 08/22/2024. Metronidazole day 6. 08/23/2024: Nutrition consulted for diet through PEG tube. Heart rate within reference range. We will continue his medication through PEG tube. Continue metronidazole day 7., continue fluconazole day 2. 08/23/2024: Continue fluconazole day 3. Metronidazole t.i.d. distended abdomen noticed on physical exam. Starting metoclopramide 5 mg b.i.d. p.r.n. Type 2MI 08/14/2024:-patient is currently on IV heparin and continue it -possibly secondary from AFib with RVR and a uncontrolled hypertension. -consulted with Dr Yoo cardiology and appreciate it, who recommended for continuing home metoprolol 50 mg b.i.d., continue atorvastatin 40 mg daily with goal of LDL <55, anticoagulation was limited for his throat cancer history. 08/15/2024: Continue mainly medical management which was recommended by the Cardiology including IV heparin for 48 hours, DAPT, statin, metoprolol. -2D echocardiogram showed mildly reduced function of LV with mild concentric hypertrophy, LVEF 45-50%, severely dilated RV with mildly reduced function, RVSP 43 mm Hg, moderately dilated LA, severely dilated RA, mild MR, TR, normal pericardium and no effusion. -Cardiology is on board 08/16/2024: Continue medical management. Stop heparin after 48 hours 08/17/2024: Completed heparin IV 48 hours, on aspirin and Eliquis, continue medical therapy 08/18/2024: On aspirin 81 mg p.o. daily. Hold Eliquis for EGD today. Holding Eliquis for possible PEG tube placement. Will consult GI tomorrow about questionable PEG tube placement 08/19/2024: Continue aspirin through NG tube. 08/20/2024: Continue aspirin through NG tube. 08/21/2024: Continue aspirin. Patient currently without NG tube. Refusing oral medication. Planned PEG tube placement on 08/22/2024. 08/24/2024: Continue aspirin through PEG tube. Acute abd pain from Constipation 08/14/2024:-mineral oil prn -continue p.o. lactulose 30 mL b.i.d., p.o. MiraLax 17 g every HS, docusate 100 mg b.i.d. -we will consider soap enema if he wound have any bowel movement after those measures -control the pain with acetaminophen as much as possible to avoid unnecessary constipation from opiates -continue IV ciprofloxacin Day 2 08/15/2024: Patient had bowel movements today, downgraded laxatives because of his in climbing creatinine level. 08/16/2024: Patient had loose bowel motion which is liquidy as the patient is mainly on the full liquid diet. continue only Miralax as needed for now and trending up Cr 08/17/2024: Is having bowel movement mostly liquidy as the patient is on the liquid diet. 08/20/2024: Last bowel movement on 08/17/2024. The patient will undergo PEG tube placement tomorrow or day after. Currently on full liquid diet. 08/21/2024: Pending PEG tube placement of 08/22/2024. NPO after midnight. 08/22/2024: The patient underwent PEG tube placement today. 08/24/2024: The patient currently denies any complaints. Receiving feeding through PEG tube. A fib w/ RVR no on anticoagulation: 08/14/2024:-was given IV diltiazem drip, cardiology recommended for titrating up current metoprolol as needed for rate control -currently maintaining heart rate around 90s 08/15/2024: Heart rate is not controlled well today, continue metoprolol 100 mg BID for better Afib control not on anticoag because of his throat cancer surgery H 08/16/2024: Heart rate control around 90s, continue current metoprolol 100 mg b.i.d., we will need to discharge on metoprolol 50 mg b.i.d. as his blood pressure is on soft side 08/17/2024: Given one time dose of IV labetalol 5 mg, and another one time dose of IV labetalol 10 mg for RVR, patient needs to be on maintenance metoprolol 50 mg b.i.d. at least. 08/18/2024: Patient's heart rate went up to 140s. Given one dose of Cardizem 20 mg IV push. Heart rate remained in 110s to 120s. Given another dose of Cardizem 25 mg IV push about 2 hours later. Now, heart rate remained less than 110/minute. If needed, will start Cardizem drip. LVEF 40-45%. 08/19/2024: Bumped up the dose of Cardizem to 7.5 initially and then to 10. Patient may need amiodarone in the night. Consult Cardiology if it is uncontrolled for cardioversion 08/20/2024: Increased dose of Cardizem drip to 20 mg/hour. Consult Cardiology if it is uncontrolled for cardioversion. 08/21/2024: The patient is currently on Cardizem drip at 20 mg/hour. If heart rates remained uncontrolled Cardizem push p.r.n. patient is requiring PEG tube placement to continue p.o. medications. 08/22/2024: Continue Cardizem drip at 20 mg/hour. We will restart p.o. medications, metoprolol 100 mg b.i.d. 08/23/2024: On diltiazem 60 mg t.i.d. through PEG tube. Heart rate well controlled. 08/24/2024: Heart rate well controlled, continue diltiazem 60 mg t.i.d. through PEG tube. KIARA on CKD stage IV unknown baseline: Vasomotor nephropathy: Oliguria-improving: Metabolic acidosis with elevated anion gap: 08/15/2024:-creatinine is trending up to 2.75 today, downgrading the laxatives usage and optimize the fluid and continue IV normal saline 0.9% 70 ml/ hours. 08/16/2024: Creatinine 2.68, gradually trending down from yesterday. Continue IV normal saline 0.9% 70 mL/hr. 08/17/2024: Not much difference in creatinine, continue monitoring including I's and O's 08/18/2024: Creatinine went up to 4.01 from 2.46- could be due to volume depletion from not being able to eat or drink and has been NPO since midnight for EGD today. Persistent oliguria- urine output less than 0.5 mL/kg/hour. Urine lytes ordered. Will consult Nephrology tomorrow in a.m. if creatinine remains high or trends up. Worsening metabolic acidosis. Increase normal saline 100 cc/hour. Taper fluids tomorrow 08/19/2024: Creatinine went up to more than four and it is on the wrong direction. 08/20/2024: Bicarb levels 15, creatinine trending up, bicarb drip with three ampules of bicarbonate started. 08/21/2024: Bicarb levels improving, current bicarbonate levels 18. Nephrology following the patient, agrees with bicarb drip. We will continue monitoring CMP. Endorsing need of G-tube for nutrition to maintain fluid and electrolyte balance. In due to bilateral crackles decreased rate of bicarb drip to 70 mL/hour. 08/22/2024: Bicarb levels within reference range. Start bicarb drip. Due to worsening kidney function stopped Lasix by Nephrology recommendation. Given 500 NS bolus. 08/23/2024: Nephrology following the case. Recommended D5 water at 125 cc/hour for 2 hours. Mentioned possible KIARA prerenal/intrinsic. Repeat urinalysis to look for evaluate cast. Recommended D5W 50 mL pushes through PEG tube. 08/24/2024: Nephrology is following the case. Within recommendations. Kidney function mild improved. Hypertension -blood pressure is currently controlled, around 110/70 -continue IV hydralazine 10 mg PRN -patient is currently on the tamsulosin for his possible diagnosis of kidney stone/BPH History of throat cancer -s/p radical resection surgery and XRT 25 years ago -currently on liquid diet only for two years now. -started and continue liquid centrum with multivitamins. Code status: Full code DVT prophylaxis: SCDs Analgesia/sedation: Acetaminophen and IV morphine as needed. Line/tube: PIV GI prophylaxis: Protonix 40 mg IV b.i.d. Nutrition: Via PEG tube. PT: Recommended post-acute care. Prognosis: Guarded. Disposition: Nephrology is following the patient. We will continue medical therapy. Sameer Zhao Internal Medicine Resident [facility] Date of Service: Aug 24, 2024 Billing Provider: AYAAN GREY MD Common Visit Codes: [id number] INP/OBS CARE(HIGH) SAMEER GONZALEZ, RES Aug 24, 2024 15:14 AYAAN GREY MD Aug 24, 2024 21:52
--- NOTE | 2024-08-24 17:41 | PROGRESS NOTE- Residence ---
Progress Note - Resident Providers to CC Resident Creating Document: AYAKAJONATHAN RIVERS RES ~ Central Line/PICC still needed: No Arevalo-Non Protocol Arevalo Indications Met/Not Met: F/C Indications Not Met Antibiotic Timeout Antibiotic Ordered?: Yes Subjective Patient seen and examined today. Denies any complaints but appears a little weaker than earlier. Was started on tube feeding via PEG tube yesterday. Objective Vital Signs Date Time Temp Pulse Resp B/P (MAP) Pulse Ox O2 Delivery O2 Flow Rate FiO2 08/24/24 14:27 97.6 91 17 109/63 (78) 93 Nasal Cannula 4.0 Result Diagram: 08/24/24 0710 08/24/24 0710 General: Alert and oriented x 4 HEENT: Normocephalic and atraumatic. Pupils equal round and reactive to light and accommodation. Extraocular movements intact. Oral and nasal mucosa moist Neck: Trachea is in midline. No masses or JVD Lungs: Bilateral normal breath sounds. No crackles, rhonchi or wheezes Heart: Irregular rhythm. Tachycardic. No rubs or murmurs Abdomen: Soft, nontender and moderately distended. PEG tube in place. Normoactive bowel sounds EMPLOYMENT AND CLAIMS AIDE: No gross sensory or motor abnormalities Extremities: No cyanosis, or clubbing. 1+ pedal edema in the left lower extremity Skin: Warm and dry Coagulation Studies Laboratory Tests Test 08/13/24 16:27 08/15/24 11:33 Prothrombin Time 11.0 SECONDS (9.0-12.0) INR International Normalized Ratio 1.1 INR Activated Partial Thromboplast Time 28 SECONDS (22-32) APTT (Heparin Protocol) 54 SECONDS (45-60) Coagulation Comments Advance Care Planning Advanced Care plannin - 30 Minutes Assessment Assessment An 78 years old male with chronic AFib with RVR on non anticoagulation, throat cancer s/p radical surgery and XRT. s/p tonsillectomy or hernia repair surgery, and FHx of cancer in brother with prostate and lung cancer, sister had thyroid and stomach cancer presented with the acute right flank pain radiated downward to his groin and genital area. Plan Plan Acute kidney injury on possible CKD-unknown stage and baseline Oliguria Metabolic acidosis with elevated anion gap Likely due to intravascular volume depletion secondary to no intake of solid food or liquids Increased normal saline to 150 cc/hour on 08/18/2024 after a bump in creatinine from 2.46 to 4.01 Urine output improved but creatinine continue to trend up Possibly must have developed ATN Repeat urinalysis, urine sodium, potassium, creatinine, urine eosinophils and osmolality ordered - pending Strict I&Os recommended BUN and creatinine stable. Metabolic acidosis improving Agree with continuing 150 mEq sodium bicarb in D5 water at 150 cc/hour Requires a G-tube for nutrition to maintain fluid and electrolyte balance 08/22/2024: Bicarb drip 150 cc/hour started on 08/20/2024 and urine output improved to 1.54 mL/kg/hour and creatinine remained stable. On 08/21/2024, Lasix 40 IV b.i.d. started by primary team along with the bicarb drip - BUN went up to 80 and creatinine went up to 5.28. Urine output remained on 1.54 mL/kg/hour . Bicarb drip discontinue last night and patient is being continued on Lasix by primary for pulmonary edema on chest x-ray. Patient denies significant shortness of breath, not requiring oxygen supplementation and no pedal edema. Mild respiratory distress could be from AFib with a RVR as well. Recommend to hold Lasix as the patient's IV fluid discontinued, not taking oral diet as well and so will be in negative fluid balance to manage pulmonary edema. Will reassess tomorrow and start IV fluids or Lasix based on clinical findings if patient goes into oliguria. Recommend strict I&Os 08/23/2024: BUN and creatinine stable today. Gave 500 mL normal saline bolus and discontinue diuretics yesterday. Received 2 L normal saline boluses last night due to hypotension. Today, given 250 mL D5 water at 125 cc/hour for 2 hours as he looks free water depleted with hyponatremia, hyperchloremia, metabolic acidosis. Check BMP in 2 hours at 2:30 p.m. today. Good urine output. Urine analysis shows sodium more 20 but FENa more than 1%. Likely has prerenal/intrinsic KIARA picture. Repeat UA to look for any granular casts. No eosinophils. Recommend D5W to 50 mL pushes through the PEG tube. He has mild pedal edema in the left lower extremity but is not moving much. Also requiring oxygen supplementation -repeat chest x-ray showed bilateral small pleural effusions and worsening bibasilar opacities. 08/24/2024: Creatinine mildly improved but BUN went up to 106. Requires hemodialysis. Consent obtained and Placed Brandon catheter in right IJ. Hemodialysis will be done tomorrow. WBC went up. Repeat blood cultures ordered Dysphagia with residual food regurgitation: S/P EGD on 08/18/24 Nodular Mass in posterior pharynx, suspicious for malignancy Eosinophilic esophagitis- middle third of the esophagus Multiple non-bleeding cratered duodenal ulcers EGD on 08/18/24 showed: -A large, bulky, exophytic, nodular, friable, and highly vascular mass was identified in the posterior pharynx, suspicious for malignancy. -The mass poses a significant risk of airway obstruction and complete obstruction in the piriform fossa, contributing to absolute dysphagia. -recommended stat ENT consultation -Protonix 40 mg IV b.i.d. Follow up with the biopsy reports Looks like there is a plan to place PEG tube by the GI Eliquis on hold for surgical procedures White count remains high. On ciprofloxacin 200 mg IV q.12h and metronidazole 500 mg IV q.8h 08/22/2024: Likely to get get PEG tube placement done today 08/23/2024: Likely to start tube feeding today has been GI recommendations and primary team. Completed about seven day course of ciprofloxacin. On metronidazole 500 IV q.8h and also is started on fluconazole 200 mg IV daily as per [facility] ENT recommendations has a pathology report showed benign squamous papilloma with ulcer, abundant bacterial and fungal forms are present within the specimen. Repeat biopsies were obtained while placing PEG tube as well 08/24/2024: On tube feeds. On metronidazole and fluconazole Atrial fibrillation with RVR Off Cardizem drip Per primary, on metoprolol tartrate 100 mg b.i.d. and diltiazem 60 mg t.i.d. On Aspirin and Lipitor Echocardiogram on 08/14/2024 showed LVEF 45-50%, LV mildly reduced function, LV severely dilated with mildly reduced function, RVSP 43 mmHg, right atrium severely dilated and left atrium moderately dilated, mild mitral regurgitation and moderate tricuspid regurgitation Hypertension Soft blood pressures DVT prophylaxis: Recommend SCDs till anticoagulation is started Jonathan Galeana MD Internal Medicine Resident, PGY 2 Attending Note: Patient seen and examined. care plan reviewed with resident. as discussed above. will continue to monitor Aneesh Albarado MD Nephrology Date of Service: Aug 24, 2024 Billing Provider: ANEESH ALBARADO MD, [facility] Aug 24, 2024 17:41 ANEESH ALBARADO MD Aug 24, 2024 18:13
--- NOTE | 2024-08-24 17:51 | RADIOLOGY REPORT ---
EXAM: XR Chest, 1 View CLINICAL INDICATION: s/p Brandon cath placement TECHNIQUE: Frontal view of the chest. COMPARISON: DI CHEST,SINGLE VIEW on DOS: 08/23/24, DI CHEST,SINGLE VIEW on DOS: 08/20/24, DI CHEST,SING LE VIEW on DOS: 08/19/24, DI CHEST,SINGLE VIEW on DOS: 08/13/24 FINDINGS: LUNGS AND PLEURAL SPACES: Congestive heart failure. HEART: Unremarkable. No cardiomegaly. MEDIASTINUM: Unremarkable. Normal mediastinal contour. BONES/JOINTS: Unremarkable. No acute fracture. TUBES, LINES AND DEVICES: Status post right IJ venous catheter placement with the distal tip in the mid SVC. No pneumothorax. OTHER FINDINGS: . IMPRESSION: Status post right IJ venous catheter placement with the distal tip in the mid SVC. No pneumothorax.
--- NOTE | 2024-08-24 18:02 | PROCEDURE NOTE- Residance ---
Procedure Note Providers to CC CC: CELSA IBANEZ MD ~ Indications Right IJ Remy catheter placement Type of Anesthesia Local Informed Consent During the informed consent discussion regarding the procedure, or treatment, I explained the following to the patient/designee: a. Nature of the procedure or treatment and who will perform the procedure or treatment. b. Necessity for procedure and the possible benefits. c. Risks and complications (most common and serious). d. Alternative treatments and the risks, benefits and side effects of each (including no treatment). e. Likelihood of the patient achieving his/her goals without this procedure and surgery treatment. f. Problems that might occur during the recuperation. g. Conflicts of interest, if any Description The [facility] Central Line Insertion Practices form was completed by an independent observer starting with the first handwash prior to starting sterile technique. A time out was performed. My hands were washed immediately prior to the procedure. I wore a surgical cap, mask with protective eyewear, full gown and sterile gloves throughout the procedure. The patient was placed in Trendelenburg position. RIGHT chest region was prepped using chlorhexidine scrub and draped in sterile fashion using a full drape and sterile probe cover and sterile gel employed. The medial and lateral heads of the sternocleidomastoid muscle were identified as was the carotid pulse. The Internal Jugular vein was identified using the ultrasound. Anesthesia was achieved over the vein using 1% lidocaine. Using real-time out of plane guidance, the introducer needle was inserted into the Internal Jugular vein under direct ultrasound visualization. Venous blood was withdrawn. The syringe was removed and a guidewire was advanced into the introducer needle. The guidewire was visualized in the Internal Jugular Vein by ultrasound. A small incision was made at the skin surface with a scalpel and the introducer needle was exchanged for a dilator over the guidewire. After appropriate dilation was obtained, the dilator was exchanged over the wire for a remy catheter. The wire was removed and the catheter was sutured in place at15 cm. A sterile sorbaview shield was placed over the catheter at the insertion site. The patient tolerated the procedure without any hemodynamic compromise. At time of procedure completion, all ports aspirated and flushed properly. Post-procedure chest x-ray showed right IJ venous catheter placement with the distal tip in the mid SVC and no pneumothorax . Estimated blood loss is minimal. Estimated Blood Loss Minimal Complication None X-Ray Findings Post-procedure chest x-ray showed right IJ venous catheter placement with the distal tip in the mid SVC and no pneumothorax Date of Service: Aug 24, 2024 Billing Provider: CELSA IBANEZ MD [facility] Aug 24, 2024 18:02
[2024-08-25] VITALS (18 sets, daily range): BP systolic 86–122; BP diastolic 33–101; PULSE 70–122; RESP 16–32; TEMP 97.1–98.1; O2SAT 88–96
[2024-08-25] MEDS: potassium Cl 40MEQ/1/2NS 520ml 520 ML IV PRN (00:53)
[2024-08-25 07:33] LABS: BASOPHILS % (AUTO) 0.2 % (0-1); EOSINOPHILS % (AUTO) 0.2 % (0-6); HEMOGLOBIN 15.8 g/dl (14.0-17.9); LYMPHOCYTES # (AUTO) 0.7 X10'3 (1.1-4.8); LYMPHOCYTES % (AUTO) 3.4 % (21-51); MEAN CORPUSCULAR HEMOGLOBIN 27.9 PG (27.0-31.0); MEAN CORPUSCULAR HGB CONC 33.5 g/dL (33.0-36.5); MEAN CORPUSCULAR VOLUME 83.2 FL (78-98); MEAN PLATELET VOLUME 8.6 FL (7.4-10.4); MONOCYTES # (AUTO) 2.1 X10'3 (0-0.9); MONOCYTES % (AUTO) 10.5 % (2-12); NEUTROPHILS # (AUTO) 17.6 X10'3 (1.8-7.7); NEUTROPHILS % (AUTO) 85.7 % (42-75); PLATELET COUNT 288 X10'3 (140-440); RED BLOOD COUNT 5.65 X10'6 (4.70-6.10); WHITE BLOOD COUNT 20.5 X10'3 (4.5-11.0)
[2024-08-25 07:47] LABS: ALANINE AMINOTRANSFERASE 18 U/L (12-78); ALBUMIN 2.2 G/DL (3.4-5.0); ALBUMIN/GLOBULIN RATIO 0.6 (1.1-1.5); ALKALINE PHOSPHATASE 142 IU/L (46-116); ANION GAP 11 (8-16); ASPARTATE AMINO TRANSFERASE 37 U/L (10-37); BILIRUBIN,TOTAL 0.5 MG/DL (0.1-1.0); BLOOD UREA NITROGEN 116 MG/DL (7-18); BUN/CREATININE RATIO 23.4 (10.0-20.0); CALCIUM 7.8 MG/DL (8.5-10.1); CHLORIDE 108 MMOL/L (99-107); CREATININE 4.95 MG/DL (0.60-1.10); GLUCOSE 144 MG/DL (70-104); MAGNESIUM 2.2 MG/DL (1.5-2.4); SODIUM 143 MMOL/L (135-145); TOTAL PROTEIN 6.2 G/DL (6.4-8.2); eCRCL 12 ML/MIN; eGFR 11 ML/MIN
[2024-08-25 07:51] LABS: POTASSIUM 3.9 MMOL/L (3.5-5.1)
[2024-08-25] MEDS ORDERED: mannitol 12.5gm/50mL VIAL IV PRN (08:00)
[2024-08-25] MEDS: heparin 1,000unit/ml 10ml vial 10 ML IV ONE (08:36)
[2024-08-25] MEDS: heparin 1,000 units/ml 10ml inj IV ONE (08:37)
[2024-08-25] MEDS: heparin 1,000 units/ml 10ml inj HE ONE ×2 (08:38)
[2024-08-25] MEDS: EPOETIN ALFA-EPBX 20,000 UNIT/ML 1 ML MDV IV ONE (08:40)
[2024-08-25] MEDS: albumin (human) 25% 100ml IV 100 ML IV PRN (08:51)
--- NOTE | 2024-08-25 10:50 | PROGRESS NOTE ---
Progress Note Dictate Providers to CC ~ Central Line/PICC still needed: Yes Central Line/PICC Necessity: Req HD/Plasmapheresis Arevalo Indications Met/Not Met: F/C Indications Not Met Antibiotic Ordered?: N/A Subjective Subjective The patient is awake, cheerful, has a temporary dialysis catheter in the right right IJ placed by yesterday. HD today just done. will be done again tomorrow. 3 liters taken off today. Objective Vitals Vital Signs Date Time Temp Pulse Resp B/P (MAP) Pulse Ox O2 Delivery O2 Flow Rate FiO2 08/25/24 14:25 97.8 102 17 94/53 (67) 92 Nasal Cannula 6.0 08/25/24 08:46 44 Lab Results: 08/25/24 0706 08/25/24 0706 Objective Vital Signs: As above General: Normal body habitus, no acute distress. Skin: No rashes, lumps, ulcers, blisters, purpura or petechiae HEENT: Anicteric sclera, DARIAN Neck: Supple and nontender without enlargement of the thyroid, or lymphadenopathy. Chest: Normal size and shape, no tenderness, CTA bilaterally Heart: Regular. No jugular venous distention, S1 and S2 heard , no gallop Abdomen: Soft and non tender no organomegaly,BS+ Extremities:4+ pedal edema Neuro: Nonfocal. Coagulation Studies Laboratory Tests Test 08/13/24 16:27 08/15/24 11:33 Prothrombin Time 11.0 SECONDS (9.0-12.0) INR International Normalized Ratio 1.1 INR Activated Partial Thromboplast Time 28 SECONDS (22-32) APTT (Heparin Protocol) 54 SECONDS (45-60) Coagulation Comments Advance Care Planning Advanced Care plannin - 30 Minutes Problem\Assessment\Plan Problems/Diagnosis: (1) KIARA (acute kidney injury) Assessment & Plan: currently dialysisdependent for the fluid overload. he still has quite a bit of edema. HD x first dose done with mannitol today. (2) CHF (congestive heart failure) Assessment & Plan: anasarca present. 3 liters taken off to balance for aurelia BP. fluid restriction to 1.2 liters per day and renal diet please. Sepsis Screening Skin Color: Pale TARI ALBARADO MD Aug 25, 2024 10:50
--- NOTE | 2024-08-25 18:55 | PROGRESS NOTE- Residence ---
Progress Note - Resident Providers to CC Resident Creating Document: GILLIAN NICHOLAS RES ~ Antibiotic Timeout Antibiotic Ordered?: Yes Subjective Patient seen and examined today. No new concerns or complaints. Currently being dialyzed. Objective Vital Signs Date Time Temp Pulse Resp B/P (MAP) Pulse Ox O2 Delivery O2 Flow Rate FiO2 08/25/24 14:25 97.8 102 17 94/53 (67) 92 Nasal Cannula 6.0 08/25/24 08:46 44 Result Diagram: 08/25/24 0708/25/24 0706 General: Well alert, well oriented, not confused, not agitated, not in acute distress, well cooperated during the physical. HEENT: Conjunctive are pink, sclerae clear, no icterus, pupil is equal in both sides, reactive to light, no ear discharge, no pharyngeal erythema or an edema. Neck: Right-sided dialysis catheter in place. Supple, no JVD, no lymphadenopathy and thyromegaly. Chest: Equal air entry on both lungs, no pathological sounds, no rhonchus or wheezing. Cardiovascular: S1-S2 regular sinus rhythm and, regular rate, no gallops, no rubs, no murmurs Abdomen: No visible peristalsis, Bowel sounds present on auscultation, soft, nontender, no guarding, no rigidity, presence of PEG tube at the level of the epigastrium. Extremities: No obvious deformities, no pitting edema bilaterally, capillary refill intact, peripheral pulsations are intact on both sides Central Nervous System: No focal neurological deficits, no motor or sensory weakness in all 4 extremities, could move all 4 extremities, 2+ deep tendon reflexes, negative Babinski. Musculoskeletal: No joint swelling, deformities, inflammations, and no scoliosis and back tenderness Skin: Warm and dry. Coagulation Studies Laboratory Tests Test 08/13/24 16:27 08/15/24 11:33 Prothrombin Time 11.0 SECONDS (9.0-12.0) INR International Normalized Ratio 1.1 INR Activated Partial Thromboplast Time 28 SECONDS (22-32) APTT (Heparin Protocol) 54 SECONDS (45-60) Coagulation Comments Assessment Assessment An 78 years old male with chronic AFib with RVR on non anticoagulation, throat cancer s/p radical surgery and XRT. s/p tonsillectomy or hernia repair surgery, and FHx of cancer in brother with prostate and lung cancer, sister had thyroid and stomach cancer presented with the acute right flank pain radiated downward to his groin and genital area. Plan Plan Dysphagia and food residual regurgitation: No malignancy, benign squamous papilloma with ulcer: 08/25/2024: Currently getting hemodialysis, 3 L output, WBCs trending up 20.5, repeat procalcitonin today 1.43 Allergic to penicillins, we will add Levaquin , continue Flagyl Pathology report from August 23 no features suggestive of squamous cell carcinoma basal cell carcinoma or melanoma. 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 Line/tube: PIV GI prophylaxis: Protonix 40 mg IV b.i.d. Nutrition: Via PEG tube. PT: Recommended post-acute care. Prognosis: Guarded. Disposition: Continue medical management. Date of Service: Aug 25, 2024 Billing Provider: AYAAN GREY MD Common Visit Codes: [id number] INP/OBS CARE(HIGH) GILLIAN NICHOLAS, RES Aug 25, 2024 18:55 AYAAN GREY MD Aug 26, 2024 07:36
[2024-08-25] MEDS: levoFLOXACIN-Levaquin 750MG/D5 150 ML IV SCH (20:40)
[2024-08-26] VITALS (21 sets, daily range): BP systolic 85–109; BP diastolic 45–74; PULSE 76–106; RESP 16–33; TEMP 97–98.2; O2SAT 90–100
[2024-08-26] MEDS: methylPREDNISolone sod succ 125mg/2ml vial IV ONE (01:30)
[2024-08-26 06:34] LABS: BASOPHILS % (AUTO) 0.1 % (0-1); EOSINOPHILS % (AUTO) 0.1 % (0-6); HEMATOCRIT 41.8 % (42.0-52.0); HEMOGLOBIN 13.9 g/dl (14.0-17.9); LYMPHOCYTES # (AUTO) 0.3 X10'3 (1.1-4.8); LYMPHOCYTES % (AUTO) 1.3 % (21-51); MEAN CORPUSCULAR HEMOGLOBIN 27.3 PG (27.0-31.0); MEAN CORPUSCULAR HGB CONC 33.2 g/dL (33.0-36.5); MEAN CORPUSCULAR VOLUME 82.3 FL (78-98); MEAN PLATELET VOLUME 8.7 FL (7.4-10.4); MONOCYTES # (AUTO) 0.6 X10'3 (0-0.9); MONOCYTES % (AUTO) 2.8 % (2-12); NEUTROPHILS # (AUTO) 21.1 X10'3 (1.8-7.7); NEUTROPHILS % (AUTO) 95.7 % (42-75); PLATELET COUNT 211 X10'3 (140-440); RED BLOOD COUNT 5.08 X10'6 (4.70-6.10); RED CELL DISTRIBUTION WIDTH 16.5 % (11.5-14.5)
[2024-08-26 07:12] LABS: MAGNESIUM 2.2 MG/DL (1.5-2.4)
--- NOTE | 2024-08-26 10:19 | PROGRESS NOTE ---
Progress Note Dictate Providers to CC ~ Central Line/PICC still needed: Yes Central Line/PICC Necessity: Req HD/Plasmapheresis Arevalo Indications Met/Not Met: F/C Indications Not Met Antibiotic Ordered?: N/A Subjective Subjective tolerated dialysis well yesterday. still has a lot of edema. 2nd dialysis today. Objective Vitals Vital Signs Date Time Temp Pulse Resp B/P (MAP) Pulse Ox O2 Delivery O2 Flow Rate FiO2 08/26/24 13:10 97.0 85 22 92/45 (61) 91 Mask 10.0 08/26/24 12:12 99 Lab Results: 08/26/24 0611 08/26/24 1040 Objective Vital Signs: As above General: Normal body habitus, no acute distress. Skin: No rashes, lumps, ulcers, blisters, purpura or petechiae HEENT: Anicteric sclera, DARIAN Neck: Supple and nontender without enlargement of the thyroid, or lymphadenopathy. Chest: Normal size and shape, no tenderness, CTA bilaterally Heart: Regular. No jugular venous distention, S1 and S2 heard , no gallop Abdomen: Soft and non tender no organomegaly,BS+ Extremities:4+ pedal edema Neuro: Nonfocal. Coagulation Studies Laboratory Tests Test 08/13/24 16:27 08/15/24 11:33 Prothrombin Time 11.0 SECONDS (9.0-12.0) INR International Normalized Ratio 1.1 INR Activated Partial Thromboplast Time 28 SECONDS (22-32) APTT (Heparin Protocol) 54 SECONDS (45-60) Coagulation Comments Advance Care Planning Advanced Care plannin - 30 Minutes Problem\Assessment\Plan Problems/Diagnosis: (1) KIARA (acute kidney injury) Assessment & Plan: currently dialysisdependent for the fluid overload. he still has quite a bit of edema. HD x second dose done with mannitol today. (2) CHF (congestive heart failure) Assessment & Plan: anasarca present. 3 liters taken off to balance for aurelia BP. fluid restriction to 1.2 liters per day and renal diet please. Sepsis Screening Skin Color: Pale TARI ALBARADO MD Aug 26, 2024 10:19
[2024-08-26] MEDS: albumin (human) 25% 100ml IV 100 ML IV PRN (11:31)
[2024-08-26 11:33] LABS: ALBUMIN 2.3 G/DL (3.4-5.0); ANION GAP 12 (8-16); BLOOD UREA NITROGEN 108 MG/DL (7-18); BUN/CREATININE RATIO 25.1 (10.0-20.0); CHLORIDE 107 MMOL/L (99-107); GLUCOSE 227 MG/DL (70-104); MAGNESIUM 2.1 MG/DL (1.5-2.4); PHOSPHORUS 3.9 MG/DL (2.3-4.5); SODIUM 141 MMOL/L (135-145); TOTAL CARBON DIOXIDE 22.4 MMOL/L (24-32); eCRCL 14 ML/MIN; eGFR 13 ML/MIN
[2024-08-26 11:40] LABS: POTASSIUM 4.1 MMOL/L (3.5-5.1)
[2024-08-26] MEDS: mannitol 12.5gm/50mL VIAL IV ONE (12:03)
[2024-08-26] MEDS: heparin 1,000 units/ml 10ml inj IV ONE (12:07)
[2024-08-26] MEDS: heparin 1,000unit/ml 10ml vial 10 ML IV ONE (12:08)
[2024-08-26] MEDS: heparin 1,000 units/ml 10ml inj HE ONE ×2 (12:09→12:10)
[2024-08-26] MEDS: EPOETIN ALFA-EPBX 20,000 UNIT/ML 1 ML MDV IV ONE (12:11)
--- NOTE | 2024-08-26 15:47 | PROGRESS NOTE- Residence ---
Progress Note - Resident Providers to CC Resident Creating Document: GIGI GONZALEZ, JESSE ~ Antibiotic Timeout Antibiotic Ordered?: Yes Subjective Patient seen and examined today. No new complaints or symptoms. Currently undergoing dialysis. Objective Vital Signs Date Time Temp Pulse Resp B/P (MAP) Pulse Ox O2 Delivery O2 Flow Rate FiO2 08/26/24 13:10 97.0 85 22 92/45 (61) 91 Mask 10.0 08/26/24 12:12 99 Physical exam: General: Well alert, well oriented, not confused, not agitated, not in acute distress, well cooperated during the physical. HEENT: Conjunctive are pink, sclerae clear, no icterus, pupil is equal in both sides, reactive to light, no ear discharge, no pharyngeal erythema or an edema. Neck: Supple, no JVD, no lymphadenopathy and thyromegaly, presence of dialysis catheter in the right side of the neck. Chest: Equal air entry on both lungs, no pathological sounds, no rhonchus or wheezing. Cardiovascular: S1-S2 regular sinus rhythm and, regular rate, no gallops, no rubs, no murmurs Abdomen: No visible peristalsis, Bowel sounds present on auscultation, soft, nontender, no guarding, no rigidity, presence of PEG tube at the level of the epigastrium. Extremities: No obvious deformities, no pitting edema bilaterally, capillary refill intact, peripheral pulsations are intact on both sides Central Nervous System: No focal neurological deficits, no motor or sensory weakness in all 4 extremities, could move all 4 extremities, 2+ deep tendon reflexes, negative Babinski. Musculoskeletal: No joint swelling, deformities, inflammations, and no scoliosis and back tenderness Skin: Warm and dry. Result Diagram: 08/26/24 0611 08/26/24 1040 Coagulation Studies Laboratory Tests Test 08/13/24 16:27 08/15/24 11:33 Prothrombin Time 11.0 SECONDS (9.0-12.0) INR International Normalized Ratio 1.1 INR Activated Partial Thromboplast Time 28 SECONDS (22-32) APTT (Heparin Protocol) 54 SECONDS (45-60) Coagulation Comments Assessment Assessment An 78 years old male with chronic AFib with RVR on non anticoagulation, throat cancer s/p radical surgery and XRT. s/p tonsillectomy or hernia repair surgery, and FHx of cancer in brother with prostate and lung cancer, sister had thyroid and stomach cancer presented with the acute right flank pain radiated downward to his groin and genital area. Plan Plan Dysphagia and food residual regurgitation: No malignancy, benign squamous papilloma with ulcer: 08/25/2024: Currently getting hemodialysis, 3 L output, WBCs trending up 20.5, repeat procalcitonin today 1.43 Allergic to penicillins, we will add Levaquin , continue Flagyl Pathology report from August 23 no features suggestive of squamous cell carcinoma basal cell carcinoma or melanoma. 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 08/26/2024: Continue Levaquin, metronidazole and fluconazole. Type 2MI Continue aspirin through PEG tube. A fib rate controlled: Continue diltiazem 60 mg t.i.d. through PEG tube. KIARA on CKD stage IV unknown baseline: Vasomotor nephropathy: Oliguria-improving: Metabolic acidosis with elevated anion gap: Hemodialysis today. 08/26/2024: Undergoing 2nd session of dialysis today. Nephrology following the patient. Patient will require TDC placement. History of hypertension History of throat cancer Currently undergoing hemodialysis, soft blood pressure is 92/45. On albumin IV daily PRN. On diltiazem 60 mg t.i.d. Code status: Full code DVT prophylaxis: SCDs Analgesia/sedation: Acetaminophen and IV morphine as needed. Line/tube: PIV GI prophylaxis: Protonix 40 mg IV b.i.d. Nutrition: Via PEG tube. PT: Recommended post-acute care. Prognosis: Guarded. Disposition: Continue medical management. Gigi Zhao Internal Medicine Resident [facility] Date of Service: Aug 26, 2024 Billing Provider: AYAAN GREY MD Common Visit Codes: [id number] INP/OBS CARE(HIGH) GIGI GONZALEZ, RES Aug 26, 2024 15:47 AYAAN GREY MD Aug 27, 2024 07:50
[2024-08-26] MEDS ORDERED: Dextrose 10%-water IV solution 1,000 ML IV SCH (19:00)
[2024-08-26] MEDS: insulin regular, human U-100 10ml vial - multi-dose SQ SCH (20:00)
[2024-08-27] VITALS (16 sets, daily range): BP systolic 92–141; BP diastolic 52–86; PULSE 80–150; RESP 16–38; TEMP 96.8–97.9; O2SAT 90–99
[2024-08-27] MEDS ORDERED: vancomycin/NS 1 GM ADD-VANTAGE 250 ML IV ONE (07:50)
[2024-08-27] MEDS ORDERED: EPOETIN ALFA-EPBX 20,000 UNIT/ML 1 ML MDV IV ONE (08:00)
[2024-08-27] MEDS ORDERED: VANCOMYCIN 1,500MG in NS 300ml IVPB IV ONE (08:15)
[2024-08-27] MEDS ORDERED: VANCOMYCIN/H2O 1.5g/300mL PB 300 ML IV ONE (08:15)
[2024-08-27] MEDS: levoFLOXACIN-Levaquin 250mg/D5 50 ML IV SCH (09:20)
[2024-08-27] MEDS: vancomycin/NS 1 GM ADD-VANTAGE 250 ML X 1 DOSE IV ONE (09:33)
[2024-08-27 09:44] LABS: BASOPHILS # (AUTO) 0.1 X10'3 (0-0.2); BASOPHILS % (AUTO) 0.2 % (0-1); EOSINOPHILS % (AUTO) 0 % (0-6); HEMATOCRIT 42.5 % (42.0-52.0); LYMPHOCYTES # (AUTO) 0.5 X10'3 (1.1-4.8); LYMPHOCYTES % (AUTO) 1.6 % (21-51); MEAN CORPUSCULAR HEMOGLOBIN 27.2 PG (27.0-31.0); MEAN CORPUSCULAR HGB CONC 32.9 g/dL (33.0-36.5); MEAN CORPUSCULAR VOLUME 82.6 FL (78-98); MEAN PLATELET VOLUME 9.7 FL (7.4-10.4); MONOCYTES # (AUTO) 1.6 X10'3 (0-0.9); MONOCYTES % (AUTO) 5.2 % (2-12); PLATELET COUNT 190 X10'3 (140-440); RED BLOOD COUNT 5.14 X10'6 (4.70-6.10); RED CELL DISTRIBUTION WIDTH 16.9 % (11.5-14.5)
[2024-08-27 09:47] LABS: WHITE BLOOD COUNT 30.1 X10'3 (4.5-11.0)
[2024-08-27 10:08] LABS: ANISOCYTOSIS 1+; PLATELET ESTIMATE NORMAL; TOTAL CELLS COUNTED 100
--- NOTE | 2024-08-27 11:39 | PROGRESS NOTE- Residence ---
Progress Note - Resident Providers to CC Resident Creating Document: AYAKAJONATHAN RIVERS RES ~ Antibiotic Timeout Antibiotic Ordered?: Yes Subjective Patient seen and examined today. Increasing oxygen requirement. No new complaints. Will need another session of hemodialysis today Objective Vital Signs Date Time Temp Pulse Resp B/P (MAP) Pulse Ox O2 Delivery O2 Flow Rate FiO2 08/27/24 09:34 85 20 95 Simple Mask* 6 50 08/27/24 02:00 97.3 96/58 (71) Result Diagram: 08/27/24 0741 08/26/24 1040 General: Alert and oriented x 4 HEENT: Normocephalic and atraumatic. Pupils equal round and reactive to light and accommodation. Extraocular movements intact. Oral and nasal mucosa moist Neck: Trachea is in midline. No masses or JVD Lungs: Bilateral normal breath sounds. No crackles, rhonchi or wheezes Heart: Irregular rhythm. Regular rate. No rubs or murmurs Abdomen: Soft, nontender and moderately distended. PEG tube in place. Normoactive bowel sounds HELP DESK ASSISTANT: No gross sensory or motor abnormalities Extremities: No cyanosis, or clubbing. Bilateral lower extremity pedal edema-2+ Skin: Warm and dry Coagulation Studies Laboratory Tests Test 08/13/24 16:27 08/15/24 11:33 Prothrombin Time 11.0 SECONDS (9.0-12.0) INR International Normalized Ratio 1.1 INR Activated Partial Thromboplast Time 28 SECONDS (22-32) APTT (Heparin Protocol) 54 SECONDS (45-60) Coagulation Comments Assessment Assessment An 78 years old male with chronic AFib with RVR on non anticoagulation, throat cancer s/p radical surgery and XRT. s/p tonsillectomy or hernia repair surgery, and FHx of cancer in brother with prostate and lung cancer, sister had thyroid and stomach cancer presented with the acute right flank pain radiated downward to his groin and genital area. Right IJ Brandon catheter placed on 08/24/2024 PEG tube placed on 08/22/2024 Plan Plan Acute kidney injury on possible CKD-unknown stage and baseline Oliguria Metabolic acidosis with elevated anion gap Likely due to intravascular volume depletion secondary to no intake of solid food or liquids Increased normal saline to 150 cc/hour on 08/18/2024 after a bump in creatinine from 2.46 to 4.01 Urine output improved but creatinine continue to trend up Possibly must have developed ATN Repeat urinalysis, urine sodium, potassium, creatinine, urine eosinophils and osmolality ordered - pending Strict I&Os recommended BUN and creatinine stable. Metabolic acidosis improving Agree with continuing 150 mEq sodium bicarb in D5 water at 150 cc/hour Requires a G-tube for nutrition to maintain fluid and electrolyte balance 08/22/2024: Bicarb drip 150 cc/hour started on 08/20/2024 and urine output improved to 1.54 mL/kg/hour and creatinine remained stable. On 08/21/2024, Lasix 40 IV b.i.d. started by primary team along with the bicarb drip - BUN went up to 80 and creatinine went up to 5.28. Urine output remained on 1.54 mL/kg/hour . Bicarb drip discontinue last night and patient is being continued on Lasix by primary for pulmonary edema on chest x-ray. Patient denies significant shortness of breath, not requiring oxygen supplementation and no pedal edema. Mild respiratory distress could be from AFib with a RVR as well. Recommend to hold Lasix as the patient's IV fluid discontinued, not taking oral diet as well and so will be in negative fluid balance to manage pulmonary edema. Will reassess tomorrow and start IV fluids or Lasix based on clinical findings if patient goes into oliguria. Recommend strict I&Os 08/23/2024: BUN and creatinine stable today. Gave 500 mL normal saline bolus and discontinue diuretics yesterday. Received 2 L normal saline boluses last night due to hypotension. Today, given 250 mL D5 water at 125 cc/hour for 2 hours as he looks free water depleted with hyponatremia, hyperchloremia, metabolic acidosis. Check BMP in 2 hours at 2:30 p.m. today. Good urine output. Urine analysis shows sodium more 20 but FENa more than 1%. Likely has prerenal/intrinsic KIARA picture. Repeat UA to look for any granular casts. No eosinophils. Recommend D5W to 50 mL pushes through the PEG tube. He has mild pedal edema in the left lower extremity but is not moving much. Also requiring oxygen supplementation -repeat chest x-ray showed bilateral small pleural effusions and worsening bibasilar opacities. 08/24/2024: Creatinine mildly improved but BUN went up to 106. Requires hemodialysis. Consent obtained and Placed Brandon catheter in right IJ. Hemodialysis will be done tomorrow. WBC went up. Repeat blood cultures ordered 08/27/2024: BUN and creatinine improving. Corrected calcium with the albumin within normal limits. Hemodialysis today-day three. Today, Significantly elevated white count. One of the blood cultures from 08/25/2024 take and from dialysis port showed growth of Gram-positive cocci in clusters. Primary team started him on vancomycin Acute hypoxemic respiratory failure Increasing oxygen requirement Chest x-ray on 08/24/2024 showed worsening bibasilar opacities Recommend repeat chest x-ray. Chest CT would be helpful On levofloxacin, vancomycin, metronidazole and fluconazole Management per primary team Dysphagia with residual food regurgitation: S/P EGD on 08/18/24 Nodular Mass in posterior pharynx, suspicious for malignancy Eosinophilic esophagitis- middle third of the esophagus Multiple non-bleeding cratered duodenal ulcers EGD on 08/18/24 showed: -A large, bulky, exophytic, nodular, friable, and highly vascular mass was identified in the posterior pharynx, suspicious for malignancy. -The mass poses a significant risk of airway obstruction and complete obstruction in the piriform fossa, contributing to absolute dysphagia. -recommended stat ENT consultation -Protonix 40 mg IV b.i.d. Follow up with the biopsy reports Looks like there is a plan to place PEG tube by the GI Elicassius on hold for surgical procedures White count remains high. On ciprofloxacin 200 mg IV q.12h and metronidazole 500 mg IV q.8h 08/22/2024: Likely to get get PEG tube placement done today 08/23/2024: Likely to start tube feeding today has been GI recommendations and primary team. Completed about seven day course of ciprofloxacin. On metronidazole 500 IV q.8h and also is started on fluconazole 200 mg IV daily as per [facility] ENT recommendations has a pathology report showed benign squamous papilloma with ulcer, abundant bacterial and fungal forms are present within the specimen. Repeat biopsies were obtained while placing PEG tube as well 08/24/2024: On tube feeds. On metronidazole and fluconazole 08/27/2024: On tube feeds. On metronidazole, fluconazole, levofloxacin, vancomycin management per primary. On Protonix Atrial fibrillation with RVR Off Cardizem drip Per primary, on metoprolol tartrate 100 mg b.i.d. and diltiazem 60 mg t.i.d. On Aspirin and Lipitor Echocardiogram on 08/14/2024 showed LVEF 45-50%, LV mildly reduced function, LV severely dilated with mildly reduced function, RVSP 43 mmHg, right atrium severely dilated and left atrium moderately dilated, mild mitral regurgitation and moderate tricuspid regurgitation Hypertension Soft blood pressures DVT prophylaxis: Recommend SCDs till anticoagulation is started Jonathan Galeana MD Internal Medicine Resident, PGY 2 Date of Service: Aug 27, 2024 Billing Provider: MEGHAN WOMACK III, MANOJNA RES Aug 27, 2024 11:39
--- NOTE | 2024-08-27 12:35 | RADIOLOGY REPORT ---
EXAM: DI CHEST,SINGLE VIEW Indication: worsening o2 requirement Technique: Single frontal view of the chest was obtained Comparison: DI CHEST,SINGLE VIEW on DOS: 08/24/24, DI CHEST,SINGLE VIEW on DOS: 08/23/24, DI CHEST,SINGLE VIEW on DOS: 08/20/24, DI CHEST,SINGLE VIEW on DOS: 08/19/24, DI CHEST,SINGLE VIEW on DOS: 08/13/24 FINDINGS: Lines and Tubes: None Lungs: Small bilateral pleural effusions and bibasilar opacities. Cardiomediastinal contours: Cardiomegaly. Atherosclerotic vascular calcifications of the thoracic ao rta are noted. Bones: No acute osseous abnormality. IMPRESSION: Cardiomegaly with small bilateral pleural effusions and bibasilar opacities.
--- NOTE | 2024-08-27 13:24 | PROGRESS NOTE- Residence ---
Progress Note - Resident Providers to CC Resident Creating Document: BOBY PELLETIER RES ~ Antibiotic Timeout Antibiotic Ordered?: Yes Subjective Patient seen and examined today. Currently on 6 L of oxygen, patient is currently on hemodialysis per Nephrology. Patient received 2 sessions of hemodialysis until today, pending round of hemodialysis again today Objective Vital Signs Date Time Temp Pulse Resp B/P (MAP) Pulse Ox O2 Delivery O2 Flow Rate FiO2 08/27/24 09:34 85 20 95 Simple Mask* 6 50 08/27/24 02:00 97.3 96/58 (71) Result Diagram: 08/27/24 0741 08/26/24 1040 Awake , alert, and oriented x4, resting comfortably in the bed, in no acute distress HEENT: Atraumatic, normocephalic, EOMI, anicteric sclera ; pink conjunctiva Neck: Trachea midline. Supple, full range of motion, no JVD Cardiac: Irregular rhythm, irregular rate with no murmurs all over the precordium. Respiratory: Equal breath sounds bilaterally, no tachypnea, no wheezing ,rub or rales, Chest wall is symmetric and without deformity. Gastrointestinal: Abdomen symmetric, non-distended, soft, slight tenderness at the right and left flank, normal bowel sounds x4 quadrant, normoactive, no hepatosplenomegaly Musculoskeletal: No pedal edema, no cyanosis Neurological: Speech is clear, alert, and oriented x 4. No motor or sensory deficit, deep tendon reflexes normal, cerebellar intact. Cranial nerves II-XII intact. Skin: Warm and dry Coagulation Studies Laboratory Tests Test 08/13/24 16:27 08/15/24 11:33 Prothrombin Time 11.0 SECONDS (9.0-12.0) INR International Normalized Ratio 1.1 INR Activated Partial Thromboplast Time 28 SECONDS (22-32) APTT (Heparin Protocol) 54 SECONDS (45-60) Coagulation Comments Advance Care Planning Advanced Care plannin - 30 Minutes Assessment Assessment An 78 years old male with chronic AFib with RVR on non anticoagulation, throat cancer s/p radical surgery and XRT. s/p tonsillectomy or hernia repair surgery, and FHx of cancer in brother with prostate and lung cancer, sister had thyroid and stomach cancer presented with the acute right flank pain radiated downward to his groin and genital area. Right IJ Brandon catheter placed on 08/24/2024 PEG tube placed on 08/22/2024 Plan Plan 1. Dysphagia with residual food regurgitation: S/P EGD on 08/18/24 Nodular Mass in posterior pharynx, suspicious for malignancy Eosinophilic esophagitis- middle third of the esophagus Multiple non-bleeding cratered duodenal ulcers EGD on 08/18/24 showed: A large, bulky, exophytic, nodular, friable, and highly vascular mass was identified in the posterior pharynx, suspicious for malignancy. The mass poses a significant risk of airway obstruction and complete obstruction in the piriform fossa, contributing to absolute dysphagia. Mucosal changes suggestive of eosinophilic esophagitis were observed in the middle third of the esophagus. Findings included a ringed esophagus, graded as Grade 2 Moderate on the Eosinophilic Esophagitis Endoscopic Reference Score (EoE-EREFS): distinct rings that do not occlude passage of an 8-10 mm endoscope. Severe diffuse mucosal changes throughout the entire examined stomach characterized by congestion, erythema, friability (with contact bleeding), granularity, and linear erosions. Multiple non-bleeding cratered duodenal ulcers with pigmented material were identified in the duodenal bulb and second portion of the duodenum. Continue diet as tolerated. Continue Protonix (pantoprazole) to 40 mg IV b.i.d. to promote healing of peptic ulcer disease (PUD). Urgent ENT consultation for evaluation and management of the posterior pharyngeal mass and impending airway obstruction. Consider placement of a percutaneous endoscopic gastrostomy (PEG) tube for nutritional support after adequate healing of PUD with proton pump inhibitor therapy, given the anticipated absolute dysphagia. Await pathology results from all biopsies to determine the nature of the pharyngeal mass, gastric changes, and eosinophilic esophagitis. Follow up with the primary care physician and gastroenterology for management based on biopsy results. 08/20/24: Continue Protonix 40 mg IV b.i.d. for 2 more days for proper healing of his peptic ulcer disease Plan for PEG tube placement tomorrow. Patient will need stat outpatient follow up with the ENT 08/21/24: Bicarb was 15, hence patient is currently on bicarb drip, continue Protonix 40 mg b.i.d. Plan for PEG tube placement likely today after assessment 08/23/24: patient underwent PEG tube placement on 08/22/24. Pathology report resulted as benign squamous papilloma with ulcer, abundant bacterial and fungal forms are present within the specimen. Repeat biopsies were obtained during PEG tube placement. Outpatient ENT follow up at [facility]. Continue fluconazole, ciprofloxacin, Metronidazole. 08/24/24: Continue antibiotics via PEG tube, patient is currently receiving nutrition through the PEG tube Await biopsy results Discharge per primary team 08/27/24: Positive blood culture, growing Gram-positive cocci in clusters, patient is currently on vancomycin, also is continued on fluconazole, metronidazole, levofloxacin, per primary team Pending biopsy results As per recommendations per PT, pending rehab placement 2. Type 2 myocardial infarction (T2MI): Continue aspirin, atorvastatin 40 mg daily, and metoprolol 50 mg BID via PEG tube. 3. Chronic AFib with RVR: Rate well-control per Hospitalist team, currently on Diltiazem 60 mg t.i.d., via PEG tube Continue apixaban for stroke prophylaxis, decision per primary team 5. Acute kidney injury (KIARA) from tubular stasis: Creatinine 4.30, follow guidelines per Nephrology Currently on hemodialysis, patient received 2 sessions of hemodialysis, another session pending today 6. Hypertension: Blood pressure remains soft 7. History of throat cancer: Outpatient follow up Code Status: Full code DVT Prophylaxis: Apixaban can be restarted, however decision per primary team Prognosis: Guarded Boby Pelletier MD Internal Medicine Resident, PGY-1 Date of Service: Aug 27, 2024 Billing Provider: SIGIFREDO ROSALES MD, GAURAV, RES Aug 27, 2024 13:24
[2024-08-27] MEDS: heparin 1,000 units/ml 10ml inj IV ONE (15:59)
[2024-08-27] MEDS: heparin 1,000unit/ml 10ml vial 10 ML IV ONE (16:00)
[2024-08-27] MEDS: heparin 1,000 units/ml 10ml inj HE ONE ×2 (16:01)
[2024-08-27] MEDS: albumin (human) 25% 100ml IV 100 ML IV PRN (16:02)
--- NOTE | 2024-08-27 17:24 | PROGRESS NOTE- Residence ---
Progress Note - Resident Providers to CC Resident Creating Document: GIGI GONZALEZ, JESSE ~ Antibiotic Timeout Antibiotic Ordered?: Yes Subjective Patient seen and examined today. Patient currently on 6 L of oxygen, plan to get dialysis 3rd session today. Objective Vital Signs Date Time Temp Pulse Resp B/P (MAP) Pulse Ox O2 Delivery O2 Flow Rate FiO2 08/27/24 16:45 97.9 150 22 98/52 (67) 93 Mask 6.0 08/27/24 09:34 50 Physical exam: General: Well alert, well oriented, not confused, not agitated, not in acute distress, well cooperated during the physical. HEENT: Conjunctive are pink, sclerae clear, no icterus, pupil is equal in both sides, reactive to light, no ear discharge, no pharyngeal erythema or an edema. Neck: Supple, no JVD, no lymphadenopathy and thyromegaly, presence of dialysis catheter in the right side of the neck. Chest: Equal air entry on both lungs, no pathological sounds, no rhonchus or wheezing. Cardiovascular: S1-S2 regular sinus rhythm and, regular rate, no gallops, no rubs, no murmurs Abdomen: No visible peristalsis, Bowel sounds present on auscultation, soft, nontender, no guarding, no rigidity, presence of PEG tube at the level of the epigastrium. Extremities: No obvious deformities, no pitting edema bilaterally, capillary refill intact, peripheral pulsations are intact on both sides Central Nervous System: No focal neurological deficits, no motor or sensory weakness in all 4 extremities, could move all 4 extremities, 2+ deep tendon reflexes, negative Babinski. Musculoskeletal: No joint swelling, deformities, inflammations, and no scoliosis and back tenderness Skin: Warm and dry. Result Diagram: 08/27/24 0741 08/26/24 1040 Coagulation Studies Laboratory Tests Test 08/13/24 16:27 08/15/24 11:33 Prothrombin Time 11.0 SECONDS (9.0-12.0) INR International Normalized Ratio 1.1 INR Activated Partial Thromboplast Time 28 SECONDS (22-32) APTT (Heparin Protocol) 54 SECONDS (45-60) Coagulation Comments Assessment Assessment An 78 years old male with chronic AFib with RVR on non anticoagulation, throat cancer s/p radical surgery and XRT. s/p tonsillectomy or hernia repair surgery, and FHx of cancer in brother with prostate and lung cancer, sister had thyroid and stomach cancer presented with the acute right flank pain radiated downward to his groin and genital area. Plan Plan Dysphagia and food residual regurgitation: No malignancy, benign squamous papilloma with ulcer: 08/25/2024: Currently getting hemodialysis, 3 L output, WBCs trending up 20.5, repeat procalcitonin today 1.43 Allergic to penicillins, we will add Levaquin , continue Flagyl Pathology report from August 23 no features suggestive of squamous cell carcinoma basal cell carcinoma or melanoma. 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 08/26/2024: Continue Levaquin, metronidazole and fluconazole. 08/27/2024: Dialysis port culture showing Gram-positive cocci. Added vancomycin IV pharmacy to dose. The patient is reporting shortness of breaths currently on simple mask 6 L, chest x-ray showing vascular congestion. We will continue dialysis by Nephrology. Acute hypoxemic respiratory failure: Secondary to bilateral pleural effusions: The patient is currently with mask saturating 93% at 6 L. Chest x-ray showed bilateral costovertebral angles opacification. With respect improvement with hemodialysis. Type 2MI Continue aspirin through PEG tube. A fib rate controlled: Echocardiogram on 08/14/2024 showed LVEF 45-50%, LV mildly reduced function, LV severely dilated with mildly reduced function, RVSP 43 mmHg, right atrium severely dilated and left atrium moderately dilated, mild mitral regurgitation and moderate tricuspid regurgitation Continue diltiazem 60 mg t.i.d. through PEG tube. Resume Eliquis 2.5 mg b.i.d. by utility person recommendation. KIARA on CKD stage IV unknown baseline: Vasomotor nephropathy: Oliguria-improving: Metabolic acidosis with elevated anion gap: Third session of hemodialysis today by Nephrology. History of hypertension History of throat cancer Currently undergoing hemodialysis, soft blood pressure is 92/45. On albumin IV daily PRN. On diltiazem 60 mg t.i.d. Code status: Full code DVT prophylaxis: SCDs Analgesia/sedation: Acetaminophen and IV morphine as needed. Line/tube: PIV GI prophylaxis: Protonix 40 mg IV b.i.d. Nutrition: Via PEG tube. PT: Recommended post-acute care. Prognosis: Guarded. Disposition: Continue medical management. Gigi Fabio Chocho Vera Internal Medicine Resident [facility] Date of Service: Aug 27, 2024 Billing Provider: AYAAN GREY MD Common Visit Codes: [id number] INP/OBS CARE(HIGH) GIGI GONZALEZ, RES Aug 27, 2024 17:24 AYAAN GREY MD Aug 29, 2024 08:01
[2024-08-28 02:00] VITALS: BP 104/55; PULSE 95; RESP 25; TEMP 98.4; O2SAT 96
[2024-08-28] MEDS: VANCOMYCIN LEVEL IV SCH (03:00)
[2024-08-28 03:48] LABS: ALBUMIN 2.5 G/DL (3.4-5.0); ANION GAP 9 (8-16); BLOOD UREA NITROGEN 75 MG/DL (7-18); BUN/CREATININE RATIO 25.2 (10.0-20.0); CALCIUM 8.3 MG/DL (8.5-10.1); CHLORIDE 109 MMOL/L (99-107); CREATININE 2.98 MG/DL (0.60-1.10); GLUCOSE 142 MG/DL (70-104); MAGNESIUM 2.2 MG/DL (1.5-2.4); PHOSPHORUS 2.8 MG/DL (2.3-4.5); POTASSIUM 3.6 MMOL/L (3.5-5.1); PREALBUMIN 20.7 MG/DL (19-36); SODIUM 146 MMOL/L (135-145); TOTAL CARBON DIOXIDE 28.3 MMOL/L (24-32); VANCOMYCIN,RANDOM 14.7 ug/mL (20.0-30.0); eCRCL 20 ML/MIN; eGFR 20 ML/MIN
[2024-08-28 05:19] LABS: HBSAG SCREEN Negative (Negative)
[2024-08-28 06:00] VITALS: BP 100/66; PULSE 93; RESP 30; TEMP 96.4; O2SAT 95; O2SAT 98
[2024-08-28 08:00] VITALS: RESP 30; O2SAT 98
[2024-08-28] MEDS ORDERED: vancomycin/NS 1 GM ADD-VANTAGE 250 ML IV PRN (08:00)
--- NOTE | 2024-08-28 08:54 | PROGRESS NOTE- Residence ---
Progress Note - Resident Providers to CC Resident Creating Document: BOBY PELLETIER RES ~ Antibiotic Timeout Antibiotic Ordered?: Yes Subjective Patient seen and examined at bedside today. Patient is currently on 6 L of oxygen. No acute overnight events. Objective Vital Signs Date Time Temp Pulse Resp B/P (MAP) Pulse Ox O2 Delivery O2 Flow Rate FiO2 08/28/24 08:14 111 08/28/24 02:00 98.4 25 104/55 (71) 96 Mask 6.0 08/27/24 20:28 50 Result Diagram: 08/27/24 0741 08/28/24 0325 Awake , alert, and oriented x4, resting comfortably in the bed, in no acute distress HEENT: Atraumatic, normocephalic, EOMI, anicteric sclera ; pink conjunctiva Neck: Trachea midline. Supple, full range of motion, no JVD Cardiac: Irregular rhythm, irregular rate with no murmurs all over the precordium. Respiratory: Equal breath sounds bilaterally, no tachypnea, no wheezing ,rub or rales, Chest wall is symmetric and without deformity. Gastrointestinal: Abdomen symmetric, non-distended, soft, slight tenderness at the right and left flank, normal bowel sounds x4 quadrant, normoactive, no hepatosplenomegaly Musculoskeletal: No pedal edema, no cyanosis Neurological: Speech is clear, alert, and oriented x 4. No motor or sensory deficit, deep tendon reflexes normal, cerebellar intact. Cranial nerves II-XII intact. Skin: Warm and dry Coagulation Studies Laboratory Tests Test 08/13/24 16:27 08/15/24 11:33 Prothrombin Time 11.0 SECONDS (9.0-12.0) INR International Normalized Ratio 1.1 INR Activated Partial Thromboplast Time 28 SECONDS (22-32) APTT (Heparin Protocol) 54 SECONDS (45-60) Coagulation Comments Advance Care Planning Advanced Care plannin - 30 Minutes Assessment Assessment An 78 years old male with chronic AFib with RVR on non anticoagulation, throat cancer s/p radical surgery and XRT. s/p tonsillectomy or hernia repair surgery, and FHx of cancer in brother with prostate and lung cancer, sister had thyroid and stomach cancer presented with the acute right flank pain radiated downward to his groin and genital area. Right IJ Brandon catheter placed on 08/24/2024 PEG tube placed on 08/22/2024 Plan Plan 1. Dysphagia with residual food regurgitation: S/P EGD on 08/18/24 Nodular Mass in posterior pharynx, suspicious for malignancy Eosinophilic esophagitis- middle third of the esophagus Multiple non-bleeding cratered duodenal ulcers EGD on 08/18/24 showed: A large, bulky, exophytic, nodular, friable, and highly vascular mass was identified in the posterior pharynx, suspicious for malignancy. The mass poses a significant risk of airway obstruction and complete obstruction in the piriform fossa, contributing to absolute dysphagia. Mucosal changes suggestive of eosinophilic esophagitis were observed in the middle third of the esophagus. Findings included a ringed esophagus, graded as Grade 2 Moderate on the Eosinophilic Esophagitis Endoscopic Reference Score (EoE-EREFS): distinct rings that do not occlude passage of an 8-10 mm endoscope. Severe diffuse mucosal changes throughout the entire examined stomach characterized by congestion, erythema, friability (with contact bleeding), granularity, and linear erosions. Multiple non-bleeding cratered duodenal ulcers with pigmented material were identified in the duodenal bulb and second portion of the duodenum. Continue diet as tolerated. Continue Protonix (pantoprazole) to 40 mg IV b.i.d. to promote healing of peptic ulcer disease (PUD). Urgent ENT consultation for evaluation and management of the posterior pharyngeal mass and impending airway obstruction. Consider placement of a percutaneous endoscopic gastrostomy (PEG) tube for nutritional support after adequate healing of PUD with proton pump inhibitor therapy, given the anticipated absolute dysphagia. Await pathology results from all biopsies to determine the nature of the pharyngeal mass, gastric changes, and eosinophilic esophagitis. Follow up with the primary care physician and gastroenterology for management based on biopsy results. 08/20/24: Continue Protonix 40 mg IV b.i.d. for 2 more days for proper healing of his peptic ulcer disease Plan for PEG tube placement tomorrow. Patient will need stat outpatient follow up with the ENT 08/21/24: Bicarb was 15, hence patient is currently on bicarb drip, continue Protonix 40 mg b.i.d. Plan for PEG tube placement likely today after assessment 08/23/24: patient underwent PEG tube placement on 08/22/24. Pathology report resulted as benign squamous papilloma with ulcer, abundant bacterial and fungal forms are present within the specimen. Repeat biopsies were obtained during PEG tube placement. Outpatient ENT follow up at [facility]. Continue fluconazole, ciprofloxacin, Metronidazole. 08/24/24: Continue antibiotics via PEG tube, patient is currently receiving nutrition through the PEG tube Await biopsy results Discharge per primary team 08/27/24: Positive blood culture, growing Gram-positive cocci in clusters, patient is currently on vancomycin, also is continued on fluconazole, metronidazole, levofloxacin, per primary team Pending biopsy results As per recommendations per PT, pending rehab placement 08/28/24: Blood cultures positive for micrococcus luteus, likely a skin commensal and a contaminant, can DC Vancomycin. continued on fluconazole, metronidazole, levofloxacin, per primary team 2. Type 2 myocardial infarction (T2MI): Continue aspirin, atorvastatin 40 mg daily, and metoprolol 50 mg BID via PEG tube. 3. Chronic AFib with RVR: Rate well-control per Hospitalist team, currently on Diltiazem 60 mg t.i.d., via PEG tube Continue apixaban for stroke prophylaxis, decision per primary team 5. Acute kidney injury (KIARA) from tubular stasis: Creatinine 2.98, follow guidelines per Nephrology Currently on hemodialysis, patient received 3 sessions of hemodialysis 6. Hypertension: Blood pressure remains soft 7. History of throat cancer: Outpatient follow up Code Status: Full code DVT Prophylaxis: Apixaban can be restarted, however decision per primary team Prognosis: Guarded Boby Pelletier MD Internal Medicine Resident, PGY-1 Date of Service: Aug 28, 2024 Billing Provider: SIGIFREDO ROSALES MD, GAURAV, RES Aug 28, 2024 08:54
[2024-08-28 08:59] LABS: BASOPHILS % (AUTO) 0.1 % (0-1); EOSINOPHILS % (AUTO) 0 % (0-6); HEMATOCRIT 42.6 % (42.0-52.0); HEMOGLOBIN 13.8 g/dl (14.0-17.9); LYMPHOCYTES # (AUTO) 0.7 X10'3 (1.1-4.8); LYMPHOCYTES % (AUTO) 2.3 % (21-51); MEAN CORPUSCULAR HEMOGLOBIN 27.4 PG (27.0-31.0); MEAN CORPUSCULAR HGB CONC 32.5 g/dL (33.0-36.5); MEAN CORPUSCULAR VOLUME 84.4 FL (78-98); MEAN PLATELET VOLUME 9.4 FL (7.4-10.4); MONOCYTES # (AUTO) 2.5 X10'3 (0-0.9); MONOCYTES % (AUTO) 7.7 % (2-12); NEUTROPHILS # (AUTO) 29.2 X10'3 (1.8-7.7); NEUTROPHILS % (AUTO) 89.9 % (42-75); PLATELET COUNT 212 X10'3 (140-440); RED BLOOD COUNT 5.05 X10'6 (4.70-6.10); RED CELL DISTRIBUTION WIDTH 17.4 % (11.5-14.5)
[2024-08-28] MEDS ORDERED: VANCOMYCIN 500MG/WATER FOR INJ (PEG) PREMIX 100 ML IV SCH (09:00)
[2024-08-28] MEDS ORDERED: vancomycin inj 500 MG in normal saline 100ml IV soln 100 ML IV SCH (09:00)
[2024-08-28 09:03] LABS: WHITE BLOOD COUNT 32.4 X10'3 (4.5-11.0)
[2024-08-28 09:25] LABS: ANISOCYTOSIS 1+; PLATELET ESTIMATE NORMAL; TOTAL CELLS COUNTED 100
[2024-08-28 09:41] LABS: ALANINE AMINOTRANSFERASE 27 U/L (12-78); ALBUMIN 2.4 G/DL (3.4-5.0); ALBUMIN/GLOBULIN RATIO 0.7 (1.1-1.5); ALKALINE PHOSPHATASE 126 IU/L (46-116); ANION GAP 14 (8-16); ASPARTATE AMINO TRANSFERASE 58 U/L (10-37); BILIRUBIN,TOTAL 0.6 MG/DL (0.1-1.0); BLOOD UREA NITROGEN 73 MG/DL (7-18); BUN/CREATININE RATIO 26.2 (10.0-20.0); CALCIUM 8.4 MG/DL (8.5-10.1); CHLORIDE 110 MMOL/L (99-107); CREATININE 2.79 MG/DL (0.60-1.10); GLUCOSE 142 MG/DL (70-104); POTASSIUM 4.1 MMOL/L (3.5-5.1); SODIUM 143 MMOL/L (135-145); TOTAL CARBON DIOXIDE 19.2 MMOL/L (24-32); TOTAL PROTEIN 5.7 G/DL (6.4-8.2); eCRCL 22 ML/MIN; eGFR 22 ML/MIN
[2024-08-28 10:02] VITALS: BP 86/60; PULSE 74
[2024-08-28] MEDS ORDERED: morphine 10mg/ml inj. IV PRN (11:00)
[2024-08-28] MEDS ORDERED: LORazepam 2 mg/ml vial IV PRN (11:00)
[2024-08-28] MEDS ORDERED: morphine 10mg/0.5ml (conc. morphine) oral syringe PO PRN (11:00)
--- NOTE | 2024-08-28 11:06 | PROGRESS NOTE- Residence ---
Progress Note - Resident Providers to CC Resident Creating Document: JONATHAN BLANKENSHIP RES ~ Antibiotic Timeout Antibiotic Ordered?: Yes Subjective Patient seen and examined at bedside today. He is now requiring mask with 6 L O2. Denies any new complaints. His white count is going up. No elevated temperatures. Objective Vital Signs Date Time Temp Pulse Resp B/P (MAP) Pulse Ox O2 Delivery O2 Flow Rate FiO2 08/28/24 10:02 74 86/60 (69) 08/28/24 06:00 96.4 30 98 Mask 6.0 08/27/24 20:28 50 Result Diagram: 08/28/24 0759 08/28/24 0759 General: Alert and oriented x 4 HEENT: Normocephalic and atraumatic. Pupils equal round and reactive to light and accommodation. Extraocular movements intact. Oral and nasal mucosa moist Neck: Trachea is in midline. No masses or JVD Lungs: Bilateral normal breath sounds. No crackles, rhonchi or wheezes Heart: Irregular rhythm. Regular rate. No rubs or murmurs Abdomen: Soft, nontender and moderately distended. PEG tube in place. Normoactive bowel sounds FREELANCE MAKEUP ARTIST: No gross sensory or motor abnormalities Extremities: No cyanosis, or clubbing. Bilateral lower extremity pedal edema-2+ Skin: Warm and dry Coagulation Studies Laboratory Tests Test 08/13/24 16:27 08/15/24 11:33 Prothrombin Time 11.0 SECONDS (9.0-12.0) INR International Normalized Ratio 1.1 INR Activated Partial Thromboplast Time 28 SECONDS (22-32) APTT (Heparin Protocol) 54 SECONDS (45-60) Coagulation Comments Assessment Assessment An 78 years old male with chronic AFib with RVR on non anticoagulation, throat cancer s/p radical surgery and XRT. s/p tonsillectomy or hernia repair surgery, and FHx of cancer in brother with prostate and lung cancer, sister had thyroid and stomach cancer presented with the acute right flank pain radiated downward to his groin and genital area. Right IJ Brandon catheter placed on 08/24/2024 PEG tube placed on 08/22/2024 Plan Plan Acute kidney injury on possible CKD-unknown stage and baseline Oliguria Metabolic acidosis with elevated anion gap Likely due to intravascular volume depletion secondary to no intake of solid food or liquids Increased normal saline to 150 cc/hour on 08/18/2024 after a bump in creatinine from 2.46 to 4.01 Urine output improved but creatinine continue to trend up Possibly must have developed ATN Repeat urinalysis, urine sodium, potassium, creatinine, urine eosinophils and osmolality ordered - pending Strict I&Os recommended BUN and creatinine stable. Metabolic acidosis improving Agree with continuing 150 mEq sodium bicarb in D5 water at 150 cc/hour Requires a G-tube for nutrition to maintain fluid and electrolyte balance 08/22/2024: Bicarb drip 150 cc/hour started on 08/20/2024 and urine output improved to 1.54 mL/kg/hour and creatinine remained stable. On 08/21/2024, Lasix 40 IV b.i.d. started by primary team along with the bicarb drip - BUN went up to 80 and creatinine went up to 5.28. Urine output remained on 1.54 mL/kg/hour . Bicarb drip discontinue last night and patient is being continued on Lasix by primary for pulmonary edema on chest x-ray. Patient denies significant shortness of breath, not requiring oxygen supplementation and no pedal edema. Mild respiratory distress could be from AFib with a RVR as well. Recommend to hold Lasix as the patient's IV fluid discontinued, not taking oral diet as well and so will be in negative fluid balance to manage pulmonary edema. Will reassess tomorrow and start IV fluids or Lasix based on clinical findings if patient goes into oliguria. Recommend strict I&Os 08/23/2024: BUN and creatinine stable today. Gave 500 mL normal saline bolus and discontinue diuretics yesterday. Received 2 L normal saline boluses last night due to hypotension. Today, given 250 mL D5 water at 125 cc/hour for 2 hours as he looks free water depleted with hyponatremia, hyperchloremia, metabolic acidosis. Check BMP in 2 hours at 2:30 p.m. today. Good urine output. Urine analysis shows sodium more 20 but FENa more than 1%. Likely has prerenal/intrinsic KIARA picture. Repeat UA to look for any granular casts. No eosinophils. Recommend D5W to 50 mL pushes through the PEG tube. He has mild pedal edema in the left lower extremity but is not moving much. Also requiring oxygen supplementation -repeat chest x-ray showed bilateral small pleural effusions and worsening bibasilar opacities. 08/24/2024: Creatinine mildly improved but BUN went up to 106. Requires hemodialysis. Consent obtained and Placed Brandon catheter in right IJ. Hemodialysis will be done tomorrow. WBC went up. Repeat blood cultures ordered 08/27/2024: BUN and creatinine improving. Corrected calcium with the albumin within normal limits. Hemodialysis today-day three. Today, Significantly elevated white count. One of the blood cultures from 08/25/2024 take and from dialysis port showed growth of Gram-positive cocci in clusters. Primary team started him on vancomycin 08/28/2024: No dialysis today. WBC going up - neutrophilia. Blood culture from dialysis port grew micrococcus luteus which likely is a contaminant. No growth in other blood cultures. Developing metabolic acidosis. Might need a chest CT. ABG would help to check if there is any superimposed respiratory acidosis along with metabolic acidosis Acute hypoxemic respiratory failure Increasing oxygen requirement Chest x-ray on 08/24/2024 showed worsening bibasilar opacities - mainly in the right Recommend repeat chest x-ray. Chest CT would be helpful On levofloxacin, vancomycin, metronidazole and fluconazole Management per primary team Dysphagia with residual food regurgitation: S/P EGD on 08/18/24 Nodular Mass in posterior pharynx, suspicious for malignancy Eosinophilic esophagitis- middle third of the esophagus Multiple non-bleeding cratered duodenal ulcers EGD on 08/18/24 showed: -A large, bulky, exophytic, nodular, friable, and highly vascular mass was identified in the posterior pharynx, suspicious for malignancy. -The mass poses a significant risk of airway obstruction and complete obstruction in the piriform fossa, contributing to absolute dysphagia. -recommended stat ENT consultation -Protonix 40 mg IV b.i.d. Follow up with the biopsy reports Looks like there is a plan to place PEG tube by the GI Elicassius on hold for surgical procedures White count remains high. On ciprofloxacin 200 mg IV q.12h and metronidazole 500 mg IV q.8h 08/22/2024: Likely to get get PEG tube placement done today 08/23/2024: Likely to start tube feeding today has been GI recommendations and primary team. Completed about seven day course of ciprofloxacin. On metronidazole 500 IV q.8h and also is started on fluconazole 200 mg IV daily as per JESSIE Erazo ENT recommendations has a pathology report showed benign squamous papilloma with ulcer, abundant bacterial and fungal forms are present within the specimen. Repeat biopsies were obtained while placing PEG tube as well 08/24/2024: On tube feeds. On metronidazole and fluconazole 08/27/2024: On tube feeds. On metronidazole, fluconazole, levofloxacin, vancomycin management per primary. On Protonix 08/28/2024: On above treatment Atrial fibrillation with RVR Off Cardizem drip Per primary, on metoprolol tartrate 100 mg b.i.d. and diltiazem 60 mg t.i.d. On Aspirin and Lipitor Echocardiogram on 08/14/2024 showed LVEF 45-50%, LV mildly reduced function, LV severely dilated with mildly reduced function, RVSP 43 mmHg, right atrium severely dilated and left atrium moderately dilated, mild mitral regurgitation and moderate tricuspid regurgitation Primary team started him on Eliquis 2.5 mg p.o. b.i.d. today Hypertension Soft blood pressures DVT prophylaxis: Tad Blankenship MD Internal Medicine Resident, PGY 2 Date of Service: Aug 28, 2024 Billing Provider: MEGHAN WOMACK III, MANOJNA RES Aug 28, 2024 11:06
--- NOTE | 2024-08-28 16:52 | DISCHARGE SUMMARY-Residence ---
Discharge Summary Providers to CC Resident Creating Document: GIGI GONZALEZ, RES ~ Discharge Summary Admission Diagnosis: NON - STEMI Hospital Course DATE OF ADMISSION: 08/13/2024 DATE OF DISCHARGE: 08/28/2024 Discharge Diagnosis\Comment: Dysphagia and food residual regurgitation No malignancy, benign squamous papilloma with ulcer Acute hypoxemic respiratory failure Secondary to bilateral pleural effusions Type 2MI secondary to AFib with RVR A fib rate controlled KIARA on CKD stage IV unknown baseline Vasomotor nephropathy Oliguria-improving Metabolic acidosis with elevated anion gap History of hypertension History of throat cancer-questionable Operations\Procedures: PEG tube placement. Dialysis catheter placement. EGD Consultants: Gastroenterology, Dr. [place]. Nephrology, Dr. Harris, Dr. Middleton. Complications: None Condition on DC: Stable Discharge Summary: HPI: History of present illness patient is a pleasant 78-year-old gentleman with a longstanding history of AFib. He started developing right flank pain that began around Tuesday around 2:00 p.m. it is radiating to his right mid abdomen towards his penis. He denies any chest pain shortness of breath PND orthopnea syncope or near-syncope. He says he has a longstanding history of AFib but it is normally controlled with the medications he is on. He denies any other associated symptoms. Hospital course: 78 years old male patient came to the hospital with chief complaint of right flank pain. The patient was admitted with signs of constipation, the patient received treatment based on lactulose, MiraLax, docusate, the patient reported bowel movement, denying any pain. Initially the patient presented with a elevated troponins, due to suspicion of NSTEMI the patient was treated with heparin drip for 48 hours, cardiology was consulted who recommended medical management. Initially the patient was thought to be discharged on 08/16/2024, however he reported pain at difficulty for swallowing, color weigher, Dr. [place] was consulted and EGD was performed on 08/18/2024 showing a large bulky nodular and friable mass, suspicion for recurrent malignancy, also eosinophilic esophagitis was noted with friable eroded mucosa in the stomach and nonbleeding duodenal ulcers. Biopsies were taken. Due to difficult for placement NG tube and swallowing GI specialist Dr. Colorado recommended PEG tube placement which was done on 08/22/2024. Nutrition was started. Results from pathology obtained in previous EGD came back showing benign squamous papilloma with ulcer and a bone that bacteria and fungal microorganisms were evidenced. The patient was started on antibiotics based on levofloxacin and metronidazole, and anti mycotic based on fluconazole. Following CBC showing trending up white blood cell count, dialysis port was showing Gram-positive cocci in clusters. Vancomycin was added, posterior lead came back positive for Micrococcus luteus, possible contaminated. On 08/28/2024, daughter at the bedside presented an advance directive, code status discussed with the patient who he is completely oriented to place, person and time. The patient decided for DNR with comfort care. Was changed to DNR with comfort care on 08/28/2024. Discharge course: Patient is going to be transferred to [facility] with hospice. Continue comfort care management based on morphine 10 mg p.o. q.2h as needed for pain, lorazepam 1 mg q.2 hours as needed for anxiety. Physical exam: General: Well alert, well oriented, not confused, not agitated, not in acute distress, well cooperated during the physical. HEENT: Conjunctive are pink, sclerae clear, no icterus, pupil is equal in both sides, reactive to light, no ear discharge, no pharyngeal erythema or an edema. Neck: Supple, no JVD, no lymphadenopathy and thyromegaly, presence of dialysis catheter in the right side of the neck. Chest: Equal air entry on both lungs, no pathological sounds, no rhonchus or wheezing. Cardiovascular: S1-S2 regular sinus rhythm and, regular rate, no gallops, no rubs, no murmurs Abdomen: No visible peristalsis, Bowel sounds present on auscultation, soft, nontender, no guarding, no rigidity, presence of PEG tube at the level of the epigastrium. Extremities: No obvious deformities, no pitting edema bilaterally, capillary refill intact, peripheral pulsations are intact on both sides Central Nervous System: No focal neurological deficits, no motor or sensory weakness in all 4 extremities, could move all 4 extremities, 2+ deep tendon reflexes, negative Babinski. Musculoskeletal: No joint swelling, deformities, inflammations, and no scoliosis and back tenderness Skin: Warm and dry. 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
[2024-08-28] MEDS ORDERED: apixaban 2.5mg tablet PO SCH (20:00)
[2024-08-29 07:12] LABS: HEP B CORE AB, TOT Negative (Negative)
[2024-08-31] MEDS ORDERED: VANCOMYCIN LEVEL IV ONE (08:30)
== END 2024-08-28 17:07 | DRG 154 ==
LOC: ER 15:32 → ED HOLD 17:33 → PCU 3S 22:23
PROVIDERS: ADMIT Internal Medicine; ATTEND Internal Medicine
PROC: 0DB58ZX Excision of Esophagus, Via Natural or Artificial Opening Endoscopic, Diagnostic (ICD-10-PCS; principal; 2024-08-18)
PROC: 0DB68ZX Excision of Stomach, Via Natural or Artificial Opening Endoscopic, Diagnostic (ICD-10-PCS; 2024-08-18)
PROC: BW2F1ZZ Computerized Tomography (CT Scan) of Neck using Low Osmolar Contrast (ICD-10-PCS; 2024-08-19)
PROC: 0DH63UZ Insertion of Feeding Device into Stomach, Percutaneous Approach (ICD-10-PCS; 2024-08-22)
PROC: 05HB33Z Insertion of Infusion Device into Right Basilic Vein, Percutaneous Approach (ICD-10-PCS; 2024-08-23)
PROC: B54MZZA Ultrasonography of Right Upper Extremity Veins, Guidance (ICD-10-PCS; 2024-08-23)
PROC: 02HV33Z Insertion of Infusion Device into Superior Vena Cava, Percutaneous Approach (ICD-10-PCS; 2024-08-24)
PROC: B548ZZA Ultrasonography of Superior Vena Cava, Guidance (ICD-10-PCS; 2024-08-24)
PROC: 5A1D70Z Performance of Urinary Filtration, Intermittent, Less than 6 Hours Per Day (ICD-10-PCS; 2024-08-25)
PROC: 5A1D70Z Performance of Urinary Filtration, Intermittent, Less than 6 Hours Per Day (ICD-10-PCS; 2024-08-26)
PROC: 5A1D70Z Performance of Urinary Filtration, Intermittent, Less than 6 Hours Per Day (ICD-10-PCS; 2024-08-27)
DX: D10.9 Benign neoplasm of pharynx, unspecified (principal); I21.A1 Myocardial infarction type 2; N17.0 Acute kidney failure with tubular necrosis; J96.01 Acute respiratory failure with hypoxia; K26.4 Chronic or unspecified duodenal ulcer with hemorrhage; K25.4 Chronic or unspecified gastric ulcer with hemorrhage; E87.20 Acidosis, unspecified; N18.4 Chronic kidney disease, stage 4 (severe); I13.0 Hypertensive heart and chronic kidney disease with heart failure and stage 1 through stage 4 chronic kidney disease, or unspecified chronic kidney disease; K59.00 Constipation, unspecified; R11.10 Vomiting, unspecified; I50.9 Heart failure, unspecified; I48.91 Unspecified atrial fibrillation; N20.0 Calculus of kidney; Z87.891 Personal history of nicotine dependence; Z92.3 Personal history of irradiation; Z88.0 Allergy status to penicillin; Z80.1 Family history of malignant neoplasm of trachea, bronchus and lung; Z80.0 Family history of malignant neoplasm of digestive organs
CPT/HCPCS: 36410; 36415; 43239; 43246; 70490; 71045; 74176; 76770; 76937; 80048; 80053; 80061; 80202; 81001; 82570; 82948; 83036; 83605; 83690; 83735; 83880; 83935; 84100; 84132; 84133; 84134; 84145; 84300; 84443; 84484; 85007; 85025; 85610; 85651; 85730; 86704; 86706; 87040; 87077; 87081; 87088; 87207; 87340; 88305; 88313; 92508; 92616; 93005; 93306; 94760; 96374; 97034; 97110; 97116; 97161; 97164; 97530; 99152; 99285; A4349; A4615; A4620; A6213; A6250; A6258; A6449; A6590; B4087; C1751; C1752; C1758; E1594; G0257; G0378; J0282; J0360; J0744; J1100; J1450; J1644; J1815; J1940; J1956; J2150; J2250; J2270; J2405; J2470; J2710; J2765; J2919; J3010; J3370; J3480; J3490; J7030; J7040; J7042; J7060; J7070; P9047; Q9967